=== PATIENT | female | born 1955 | race Caucasian/White ===

== ENCOUNTER → 2017-03-11 | Outpatient (CLI) | payer OTHER ==
[~2017-03-11] VITALS: Ht 147.3 cm; Wt 82.7 kg
[~2017-03-11] MED LIST: ACET-1311 PO; ETAN50IN2 SQ; HYDC25 PO; MULT-506 PO; SULI200T4 PO
[2017-03-11 14:51] VITALS: BP 144/79; PULSE 109; Ht 147.3 cm; Wt 82.7 kg
== END | disposition home or self-care (01) ==
LOC: C.NEUR 14:20
PROVIDERS: ATTEND Internal Medicine Pulmonary Disease
DX: R06.83 Snoring (principal); G47.19 Other hypersomnia; Z72.820 Sleep deprivation; E66.9 Obesity, unspecified; R05 Cough

== ENCOUNTER → 2017-03-25 | Outpatient (CLI) | payer OTHER ==
--- NOTE | 2017-03-26 05:59 | PAP/PSG TECHNICIAN REPORT ---
[facility] Vibration Technician Polysomnogram Report Study name: None Report date: 03/26/2017 Study date: 03/25/2017 Referring Physician: Too Lagos M.D. Name: EDITH JING Interpreting Physician: Too Lagos M.D. Date of : 1955 Vibration Technician: Debbie Cabrear RPS. Sex: Female Age: 61 StudyType: PSG Weight: 182 lbs Height: 61 years, Height 4' 11" Neck Circum: 17 inches BMI: 36.76 Medications: Alendronate Sodium 70 mg, Aspirin 81 mg, Calcium 600 +[id number], Crestror 40 mg, Enbrel 50 mg/ml, Fluticasone 50 MCG, Lisinopril 20 mg, Metformin 500 mg, Novolog 70/30, Prednisone 5 mg, Sulindac 200 mg, Triamterene-HCTZ 37.5-25 mg Patient History 61 yr. old female here tonight for a diagnostic sleep study in room 8. Patient complains of snoring, fatigue and fragmented sleep. ESS 09/04. Parameters Monitored NPSG: E1-M2, E2-M1, Fp1-M2, Fp2-M1, F3-M2, F4-M2, F4-M1, C3-M2, C4-M2, C4-M1, O1-M2, O2-M2, O2-M1, T3-M2, T4-M1, P3-M2, P4-M1, CHIN1, CHIN2, HR, EKG, Legs, PFLOW, SNOR, FLOW, CFLOW, Tidal Volume, THOR, ABDO, SpO2, PLTH, CPRESS, ETCO2 Wave, ETCO2, pH Sleep Architecture Sleep Stages Time at Lights Off 9:42:19 PM STAGES Time (min.) TST (%) Time at Lights On 5:28:19 AM Wake 227.5 -- Total Recording Time (TRT) 466.00 min. N1 37.5 16 Total Sleep Period (TSP) 437.0 min. N2 99.5 42 Total Sleep Time (TST) 238.0min. N3 56.5 24 Awake Time 228.0 min. REM 44.5 19 Wake after Sleep Onset 201.5 min. Sleep Efficiency (SE) 51 % Sleep Onset Latency (KENNETH) 26.5 min. Number of Stage 1 Shifts None Awakenings 29 Stage Changes 103 Number of REM periods 2 REM 44.5 19 REM Latency 255.5 min. NREM 193.5 81 Body Position Analysis Supine Right Left Side Prone Vertical Total Sleep Time (min.) 64.3 233.5 0.0 233.50 0.0 1.2 Total Sleep Time (%) 2% 98% 0% 98 0% N/A% Total Sleep Time REM (min.) 0.0 44.5 0.0 None 0.0 0.0 Total Sleep Time NREM (min.) 4.5 189.0 0.0 None 0.0 0.0 Intermittent Wake (min.) 59.8 166.5 0.0 None 0.0 1.2 Total Sleep Period (%) 15% None None None None None Arousals Myoclonus (PLM) * Events Count Index Events Count Index Spontaneous 3 1 Events Awake (PLMW) 558 147.2 Respiratory 14 4.5 Events Asleep w/ Arousal (PLMA) 29 7.3 PLM 27 7 Events Asleep w/o Arousal (PLMS) 113 28.5 Snoring 17 4 Total Asleep 142 35.8 Total 61 15 Total 700 90 Respiratory Analysis * CA OA MA CH H RERA Total Count 1 2 0 0 126 0 129 Index 0.3 0.5 0.0 0 31.8 0 32.5 Mean Duration 10.7 5.9 0.0 0.00 21.8 0.0 21.5 Longest Duration 10.7 11.8 0.0 0.00 0.0 0.0 56.1 Respiratory Event Summary Total Supine ~Supine Right Left Prone REM NREM Apneas Count 3 0 3 3 N/A N/A 1 2 Index 0.8 0 1 0.8 N/A N/A 1 1 Hypopneas (4% Desat) Count 126 9 117 117 N/A N/A 56 70 Index 31.8 120.0 30 30.1 N/A N/A 75.5 21.7 Apneas & All Hypopneas Count 129 9 120 120 N/A N/A 57 72 Index 32.5 120 31 31 N/A N/A 76.9 22.3 Respiratory Events (Row Boss+All Hyp+RERA) Count 129 9 120 120 N/A N/A 57 72 Index 32.5 120 31 30.8 N/A N/A 76.9 22.3 Respiratory Related Arousal Count 14 9 14 14 N/A N/A 0 18 Index 4.5 53 4 4 N/A N/A 0 6 Snoring Analysis Supine Right Left Prone REM NREM Total Snore duration 69.1 min Snores count 7 2,717 N/A N/A 471 2,253 2,724 Snore mean duration 1.5 Sec Snores index 93 698 N/A N/A 635.1 698.6 686.7 TST with snoring (%) 29.0% Desaturation Event Summary: Minimum %SpO2 Event Count Mean/Min/Max Duration(sec.) Desaturation Index % Time In Bed > 90 165 20.1 / 4.8 / 60.0 24.4 90.5 86 - 90 30 12.8 / 5.8 / 33.0 61.0 6.6 81 - 85 8 8.9 / 5.5 / 12.8 54.5 2.0 76 - 80 0 N/A 0.0 0.9 71 - 75 0 N/A 0.0 0.1 66 - 70 0 N/A 0.0 0.0 61 - 65 0 N/A 0.0 0.0 56 - 60 0 N/A 0.0 0.0 51 - 55 0 N/A 0.0 0.0 < 50 0 N/A 0.0 0.0 Total REM NREM Awake <50% 0.0 min. 0.0 min. 0.0 min. 0.0 min. 51 - 60% 0.0 min. 0.0 min. 0.0 min. 0.0 min. 61 - 70% 0.1 min. 0.1 min. 0.0 min. 0.0 min. 71 - 80% 4.4 min. 4.4 min. 0.0 min. 0.0 min. 81 - 90% 38.3 min. 20.4 min. 12.5 min. 5.5 min. 91 - 100% 405.7 min. 19.7 min. 180.3 min. 205.7 min. Average 93 89 93 94 Minimum SpO2 70 70 85 81 Desaturation Event Index 24.1 90.3 24.5 11.1 # Desat. Events below 89% 72 57 10 5 Time(%) with Saturation below 89% 5.2 4.0 0.8 0.4 Time(min.) with Saturation below 89% 23.4 18.2 3.4 1.8 Time (mins) REM (mins) NREM (mins) % of TST SpO2 Below 90% 105 63 N42 11.5 SpO2 Below 88% 19 0 0 7 Heart Rate Analysis Min (bpm) Max (bpm) Average (bpm) Awake 31 255 94 NREM 70 127 86 REM 64 95 79 Overall 64 127 84 Supplemental O2 Values Minimum O2 level: None Value Start Time End Time Vibration Technician Comments MS. Concepcion slept in the right and supine positions. No cardiac arrhythmia or PLMs noted. No bruxism noted. Snoring was noted and scored as a 4 on a scale of 0 through 5. (0=no snoring, 5=snoring loud enough to be heard through a closed door or down the [address] way) MS. Concepcion awoke to use the restroom two times during the night.MS. Concepcion stated, I was very warm last night. The final report will be interpreted and signed by a sleep physician. The completed physician report will then be placed in the patient medical record. Therapy (cm H2O) 0 TIB (min.) 465.5 TST (min.) 238.0 Sleep Onset (min.) 26.5 REM Onset From Sleep (min.) 255.5 Sleep Efficiency % 51 Wakefulness (%) 49 Wakefulness (min.) 228.0 NREM 1 (%) 16 NREM 1 (min.) 37.5 NREM 2 (%) 42 NREM 2 (min.) 99.5 NREM 3 (%) 24 NREM 3 (min.) 56.5 REM (%) 19 REM (min.) 44.5 # Arousals 61 Arousal Index 15 # Snore 2,724 Snore Index 686.7 AHI 32.5 AHI Supine 120 AHI Non-Supine 31 NREM AHI 22.3 REM AHI 76.9 RDI 32.5 # Obstructive Apnea 2 # Central Apnea 1 # Mixed Apnea 0 # Hypopneas 126 RERAs 0 Total Respiratory Events 134 Time Below SpO2 89% (min.) 21.6 Mean NREM SpO2 (%) 93 Mean REM SpO2 (%) 89 Mean Sleep SpO2 (%) 92 Min NREM SpO2 (%) 85 Min REM SpO2 (%) 70 Position Supine (min.) 64.3 Position Non-supine (min.) 233.5 LM Index Sleep 35.8 LM Index NREM 43.1 LM Index REM 4.0 Mean Heart Rate (bpm) 84 Min Heart Rate (bpm) 64
--- NOTE | 2017-03-28 09:43 | POLYSOMNOGRAPH REPORT ---
CLINICAL DATA: A 61-year-old female with a BMI of 37.[address] Luna and myself with snoring, fatigue and fragmented sleep. Her [place] sleepiness score was 6/24. SLEEP ARCHITECTURE: Total sleep period was 437 minutes. Total sleep time was 238 minutes divided between 193.5 minutes of non-REM sleep and 44.5 minutes of REM sleep. Sleep onset latency was 26.5 minutes. REM latency was delayed at 255.5 minutes. Sleep efficiency was significantly reduced at 51%. Wake after sleep onset was markedly elevated at 201.5 minutes. Sleep consisted of stage N1 16%, stage N2 42%, stage N3 24%, and REM 19%. AROUSAL DATA: 61 arousals were recorded for an index of 15 per hour. PLM DATA: Mildly elevated limb movements during sleep were noted. There were 142 limb movements during sleep noted for an index of 35.8 per hour with arousal index of 7.3 per hour. RESPIRATORY DATA: Severe sleep apnea was documented. The AHI was 32.5. There was 1 central and 2 obstructive apneic episodes. The longest apneic episode was 11.8 seconds. There were 126 hypopneic episodes with a mean duration of 21.8 seconds. OXIMETRY DATA: Nocturnal hypoxemia was seen. Oxygen zach was 78% during REM. The mean saturation was 92%. Time below 88% was 19 minutes. EKG: Heart rates ranged from 70-127 beats per minute. No arrhythmias were noted. SURFBOARD MAKER'S COMMENTS: The patient slept in the right and supine positions. Snoring was severe rated 4 on a scale of 1-5. IMPRESSION: Severe sleep apnea/hypopnea with an AHI of 32.5 with nocturnal hypoxemia. RECOMMENDATIONS: The patient should be considered for a repeat sleep study with CPAP. ELLAD
== END | disposition home or self-care (01) ==
LOC: C.NEUR 21:00
PROVIDERS: ATTEND Internal Medicine Pulmonary Disease
DX: G47.30 Sleep apnea, unspecified (principal); E66.9 Obesity, unspecified

== ENCOUNTER → 2017-04-12 | Outpatient (CLI) | payer OTHER ==
[~2017-04-12] VITALS: Ht 148.6 cm; Wt 85.4 kg
[2017-04-12 15:12] VITALS: BP 134/79; PULSE 99; Ht 148.6 cm; Wt 85.4 kg
== END | disposition home or self-care (01) ==
LOC: C.NEUR 14:21
PROVIDERS: ATTEND Physician Assistant Medical
DX: G47.34 Idiopathic sleep related nonobstructive alveolar hypoventilation (principal); E66.9 Obesity, unspecified; G47.19 Other hypersomnia; R06.83 Snoring; E78.5 Hyperlipidemia, unspecified; Z79.899 Other long term (current) drug therapy; I10 Essential (primary) hypertension; Z72.820 Sleep deprivation; M06.9 Rheumatoid arthritis, unspecified; E11.9 Type 2 diabetes mellitus without complications; Z90.89 Acquired absence of other organs; Z98.890 Other specified postprocedural states; Z90.5 Acquired absence of kidney; Z82.61 Family history of arthritis; Z83.3 Family history of diabetes mellitus; Z80.1 Family history of malignant neoplasm of trachea, bronchus and lung; Z80.6 Family history of leukemia; Z81.0 Family history of intellectual disabilities; Z80.42 Family history of malignant neoplasm of prostate

== ENCOUNTER → 2017-04-29 | Outpatient (CLI) | payer OTHER ==
--- NOTE | 2017-04-30 06:47 | PAP/PSG TECHNICIAN REPORT ---
[facility] Studio Operator Polysomnogram Report Study name: None Report date: 04/30/2017 Study date: 04/29/2017 Referring Physician: Too Lagos M.D. Name: EDITH JING Interpreting Physician: Too Lagos M.D. Date of : 1955 Studio Operator: Michael Barth RPSGT. Sex: Female Age: 61 StudyType: PSG PAP Weight: 188 lbs 16 INCHES Height: 61 years, Height 4' 11" Neck Circum: BMI: 37.97 Medications: ALENDRONATE SODIUM 70 MG, ASPIRIN 81 MG, CRESTOR 40 MG, ENBREL 50 MG, FLUTICASONE PROPIONATE 50 MCG, LISINOPRIL 20 MG, METFORMIN HCL ER 500 MG, NOVOLOG, PREDNISONE 5 MG, SULINDAC 200 MG, TRIAMTERENE-HCTZ 37.5-25 MG Patient History PATIENT HAD A SLEEP STUDY DONE IN MARCH AND WAS POSITIVE FOR TRISHA WITH AN AHI OF 32.5/HR. SHE IS HERE TODAY FOR A CPAP TITRATION. RM 7 Parameters Monitored NPSG: E1-M2, E2-M1, Fp1-M2, Fp2-M1, F3-M2, F4-M2, F4-M1, C3-M2, C4-M2, C4-M1, O1-M2, O2-M2, O2-M1, T3-M2, T4-M1, P3-M2, P4-M1, CHIN1, CHIN2, HR, EKG, Legs, PFLOW, SNOR, FLOW, CFLOW, Tidal Volume, THOR, ABDO, SpO2, PLTH, CPRESS, ETCO2 Wave, ETCO2, pH Sleep Architecture Sleep Stages Time at Lights Off 10:33:05 PM STAGES Time (min.) TST (%) Time at Lights On 6:01:05 AM Wake 219.5 -- Total Recording Time (TRT) 448.50 min. N1 11.5 5 Total Sleep Period (TSP) 444.0 min. N2 90.0 39 Total Sleep Time (TST) 228.5min. N3 52.5 23 Awake Time 219.5 min. REM 74.5 33 Wake after Sleep Onset 215.5 min. Sleep Efficiency (SE) 51 % Sleep Onset Latency (KENNETH) 4.0 min. Number of Stage 1 Shifts None Awakenings 28 Stage Changes 76 Number of REM periods 4 REM 74.5 33 REM Latency 193.0 min. NREM 154.0 67 Body Position Analysis Supine Right Left Side Prone Vertical Total Sleep Time (min.) 65.3 9.0 206.5 215.50 0.0 0.0 Total Sleep Time (%) 6% 4% 90% 94 0% N/A% Total Sleep Time REM (min.) 0.0 0.0 74.5 None 0.0 0.0 Total Sleep Time NREM (min.) 13.0 9.0 132.0 None 0.0 0.0 Intermittent Wake (min.) 52.3 61.5 105.7 None 0.0 0.0 Total Sleep Period (%) 14% None None None None None Arousals Myoclonus (PLM) * Events Count Index Events Count Index Spontaneous 18 5 Events Awake (PLMW) 461 126.0 Respiratory 2 0.8 Events Asleep w/ Arousal (PLMA) 7 1.8 PLM 6 2 Events Asleep w/o Arousal (PLMS) 64 16.8 Snoring 1 0 Total Asleep 71 18.6 Total 27 7 Total 532 71 Respiratory Analysis * CA OA MA CH H RERA Total Count 0 4 0 0 25 3 29 Index 0.0 1.1 0.0 0 6.6 1 8.4 Mean Duration 0.0 13.4 0.0 0.00 15.9 14.0 15.4 Longest Duration 0.0 16.9 0.0 0.00 0.0 16.1 23.6 Respiratory Event Summary Total Supine ~Supine Right Left Prone REM NREM Apneas Count 4 0 4 0 4 N/A 3 1 Index 1.1 0 1 0.0 1.2 N/A 2 0 Hypopneas (4% Desat) Count 25 6 19 0 19 N/A 18 7 Index 6.6 27.7 5 0.0 5.5 N/A 14.5 2.7 Apneas & All Hypopneas Count 29 6 23 0 23 N/A 21 8 Index 7.6 28 6 0 7 N/A 16.9 3.1 Respiratory Events (Superintendent Service+All Hyp+RERA) Count 29 9 23 0 23 N/A 21 8 Index 8.4 42 6 0.0 6.7 N/A 16.9 4.3 Respiratory Related Arousal Count 2 9 1 0 1 N/A 1 2 Index 0.8 9 0 0 0 N/A 1 1 Snoring Analysis Supine Right Left Prone REM NREM Total Snore duration 2.8 min Snores count 8 19 103 N/A 31 99 130 Snore mean duration 1.3 Sec Snores index 37 127 30 N/A 25.0 38.6 34.1 TST with snoring (%) 1.2% Desaturation Event Summary: Minimum %SpO2 Event Count Mean/Min/Max Duration(sec.) Desaturation Index % Time In Bed > 90 62 26.4 / 7.0 / 60.0 8.8 99.3 86 - 90 0 N/A 0.0 0.7 81 - 85 0 N/A 0.0 0.0 76 - 80 0 N/A 0.0 0.0 71 - 75 0 N/A 0.0 0.0 66 - 70 0 N/A 0.0 0.0 61 - 65 0 N/A 0.0 0.0 56 - 60 0 N/A 0.0 0.0 51 - 55 0 N/A 0.0 0.0 < 50 0 N/A 0.0 0.0 Total REM NREM Awake <50% 0.0 min. 0.0 min. 0.0 min. 0.0 min. 51 - 60% 0.0 min. 0.0 min. 0.0 min. 0.0 min. 61 - 70% 0.0 min. 0.0 min. 0.0 min. 0.0 min. 71 - 80% 0.0 min. 0.0 min. 0.0 min. 0.0 min. 81 - 90% 3.0 min. 2.3 min. 0.0 min. 0.8 min. 91 - 100% 423.3 min. 72.2 min. 154.0 min. 197.1 min. Average 95 95 95 95 Minimum SpO2 81 86 91 81 Desaturation Event Index 8.3 18.5 1.6 9.8 # Desat. Events below 89% 4 4 N/A N/A Time(%) with Saturation below 89% 0.2 0.1 0.0 0.0 Time(min.) with Saturation below 89% 0.7 0.6 0.0 0.1 Time (mins) REM (mins) NREM (mins) % of TST SpO2 Below 90% 9 9 NN/A 0.6 SpO2 Below 88% 1 0 0 0 Heart Rate Analysis Min (bpm) Max (bpm) Average (bpm) Awake 67 94 79 NREM 64 83 73 REM 59 84 69 Overall 59 84 71 Supplemental O2 Values Minimum O2 level: None Value Start Time End Time Studio Operator Comments Ms. Concepcion slept in the right, left and supine positions. No cardiac arrhythmia noted. Leg movements noted. No bruxism noted. CPAP was initiated at +4 CMH2O and up-titrated to an optimal level of +12 CMH2O, which nearly eliminated all respiratory events and snoring. A Resmed F10 full face size small mask was used during titration Ms. Concepcion awoke to use the restroom 3 times during the night. Ms. Concepcion stated I did not sleep as well as I do when I am in my own bed. The final report will be interpreted and signed by a sleep physician. The completed physician report will then be placed in the patient medical record. Therapy Event: Therapy (cm H20) 4 5 6 7 9 11 12 Total Time at Pressure (min.) 22.6 27.4 159.4 103.6 6.3 52.8 75.8 TST at Pressure (min.) 7.1 7.4 31.0 57.1 6.3 49.8 69.8 # Periods 1 1 1 1 1 1 1 Sleep Onset (min.) 4.0 0.0 0.5 0.0 0.0 0.0 0.0 REM Onset (min.) N/A N/A 147.0 0.0 0.0 0.0 0.0 Sleep Efficiency % 31 26 19 55 100 94 92 Wakefulness (%) 68.5 73.1 80.6 44.9 0.0 5.7 7.9 Wakefulness (min.) 15.5 20.0 128.5 46.5 0.0 3.0 6.0 NREM 1 (%) 19.9 9.1 1.6 1.0 0.0 0.9 0.7 NREM 1 (min.) 4.5 2.5 2.5 1.0 0.0 0.5 0.5 NREM 2 (%) 11.6 17.8 10.0 28.0 0.0 26.5 31.0 NREM 2 (min.) 2.6 4.9 16.0 29.0 0.0 14.0 23.5 NREM 3 (%) 0.0 0.0 0.0 19.8 0.0 56.8 2.6 NREM 3 (min.) 0.0 0.0 0.0 20.5 0.0 30.0 2.0 REM (%) 0.0 0.0 7.8 6.4 100.0 10.1 57.8 REM (min.) 0.0 0.0 12.5 6.6 6.3 5.3 43.8 # Arousals 7 2 7 4 0 2 5 Arousal Index 59.0 16.3 13.6 4.2 0.0 2.4 4.3 # Snore 3 5 33 68 5 9 7 Snore Index 25.3 40.6 64.0 71.5 47.8 10.8 6.0 AHI 33.7 16.3 9.7 6.3 38.3 4.8 3.4 AHI Supine 33.7 63.8 0.0 N/A N/A N/A N/A AHI Non-Supine N/A 0.0 11.1 6.3 38.3 4.8 3.4 NREM AHI 33.7 16.3 0.0 0.0 N/A 2.7 0.0 REM AHI N/A N/A 24.1 54.6 38.3 22.5 5.5 RDI 50.6 24.4 9.7 6.3 38.3 4.8 3.4 # Obstructive 0 0 0 3 0 1 0 # Central Ap 0 0 0 0 0 0 0 # Mixed 0 0 0 0 0 0 0 # Hypopneas 4 2 5 3 4 3 4 RERAS 2 1 0 0 0 0 0 Total Respiratory Events 6 3 5 6 4 4 4 Time Below SpO2 89.00% (min.) 0.0 0.0 0.3 0.3 0.0 0.0 0.0 Mean NREM SpO2 (%) 95 94 93 94 N/A 95 96 Mean REM SpO2 (%) N/A N/A 93 94 95 95 96 Mean Sleep SpO2 (%) 95 94 93 94 95 95 96 Min NREM SpO2 (%) 92 92 91 93 N/A 93 93 Min REM SpO2 (%) N/A N/A 86 87 90 91 91 Position Supine (min.) 7.1 1.9 4.0 0.0 0.0 0.0 0.0 Position Non-supine (min.) 0.0 5.5 27.0 57.1 6.3 49.8 69.8 LM Index Sleep 67.4 32.5 27.1 6.3 28.7 20.5 16.3 LM Index NREM 67.4 32.5 38.9 2.4 N/A 14.8 25.4 LM Index REM N/A N/A 9.6 36.4 28.7 67.5 10.9 Mean Heart Rate (bpm) 77 76 74 73 68 72 68 Min Heart Rate (bpm) 73 73 68 61 61 61 59
--- NOTE | 2017-05-03 10:42 | POLYSOMNOGRAPH REPORT ---
CLINICAL DATA: A 61-year-old female with a BMI of 37.97, referred by myself and Lupe Espinosa PA-C, for a CPAP titration study. She had a sleep study in March 2017 which showed severe TRISHA with an AHI of 32.5. SLEEP ARCHITECTURE: Total sleep period was 444 minutes. Total sleep time was 228.5 minutes divided 154 minutes of non-REM sleep and 74.5 minutes of REM sleep. Sleep onset latency was 4 minutes. REM latency was 193 minutes. Sleep efficiency was 51%. Wake after sleep onset was significantly elevated at 215.5 minutes. Sleep consisted of stage N1 5%, stage N2 39%, stage N3 23% and REM 33%. AROUSAL DATA: 27 arousals were recorded for an index of 7 per hour. PERIODIC LIMB MOVEMENT DATA: 71 limb movements during sleep were noted for an index of 18.6 per hour with arousal index of 1.8 per hour. RESPIRATORY DATA: The AHI was 7.6. There were 4 obstructive apneic episodes. The longest apneic episode was 16.9 seconds. There were 25 hypopneic episodes with the mean duration of 16 seconds. OXIMETRY DATA: Transient hypoxemia was seen. Oxygen zach was 86%. Mean saturation was 95%. Time below 88% was less than 1 minute. EKG: Heart rates ranged from 64-84 beats per minute. No arrhythmias were noted. UROGYNECOLOGY PHYSICIAN'S COMMENTS AND TREATMENT SUMMARY: The patient slept in the right, left and supine position. She used ResMed F10 full facemask, size small. She was titrated up to 12 cm of water pressure. At that pressure, she slept for 70 minutes with an AHI of 3.4. IMPRESSION: Severe sleep apnea, corrected with CPAP 12 cm of water pressure, ResMed F10 full facemask, size small. RECOMMENDATIONS: The patient should be started on the above-noted treatment regimen and seen back in followup within 90 days to document efficacy and compliance. CR
== END | disposition home or self-care (01) ==
LOC: C.NEUR 20:00
PROVIDERS: ATTEND Physician Assistant Medical
DX: G47.34 Idiopathic sleep related nonobstructive alveolar hypoventilation (principal); E66.9 Obesity, unspecified; G47.19 Other hypersomnia; R06.83 Snoring

== ENCOUNTER 2024-03-20 08:10 | Inpatient (IN) ==
--- NOTE | 2024-03-20 08:38 | Emergency Department Note ---
Impression & Plan Episode of unresponsiveness, Drowsy ED Provider Note Provider: Ralph Roldan MD CHIEF COMPLAINT: Unresponsive episode, nausea HISTORY OF PRESENT ILLNESS: Patient is a 68-year-old female past medical history of end-stage renal disease on dialysis, diabetes, allergic rhinitis, hypertension, and solitary kidney presenting here today from the vascular suite. Patient was here for a fistulogram electively this morning. Reports from nursing staff there indicate the patient was being shifted from the stretcher onto the procedure table. She received 3 g of Ancef a little bit before this. Was otherwise doing well. Immediately upon moving around to the procedure table the patient began to clench her jaw and stiffen and went unresponsive and had a growl that lasted for maybe a minute or 2. No other shaking reported. She did not fall. No vomiting reported. Patient does report that she remembers feeling a bit off and maybe a little bit dizzy upon getting the room and starting to shift. Then remembers waking up to them asking her questions. She denies any history of similar. Did not have breakfast this morning and did not eat well over the weekend. States that she did have some nausea and decreased intake over the weekend. Had normal dialysis session yesterday although reports that her weight was a little bit lower than normal again as she has not been eating well. Maybe a bit of a chronic cough but no high fevers or chills reported. No chest pain or significant shortness of breath reported. Patient currently states she feels feels drowsy a bit like she was drugged. No headache reported. Stomach upset and nausea reported. Feels crumbly and she feels thirsty. Does report some hip pain but did take her Tylenol this morning. PAST MEDICAL HISTORY: As noted above MEDICATIONS: Reviewed home medications SOCIAL HISTORY: PHYSICAL EXAM: GENERAL: alert and oriented in no acute distress on stretcher although maybe a little bit drowsy. Head: normocephalic and atraumatic EYES: No injection, discharge or icterus. PERRL, EOMI. NECK: Trachea midline. ENT: Mucous membranes pink and moist. LUNGS: Airway patent. No retractions. Breath sounds clear with good air entry bilaterally. HEART: Regular rate and rhythm. No chest wall tenderness ABDOMEN: Soft and non-tender, without guarding or rebound. SKIN: Acyanotic, warm, dry, without rashes EXTREMITIES: Without swelling, tenderness or deformity of the lower extremities with the left upper extremity fistula in place in the upper arm with thrill NEUROLOGICAL: No focal deficits. No aphasia. No facial droop or slurred speech. Normal strength and tone in the extremities. Sensation to gross touch normal. EK bpm normal sinus rhythm. No PVC or PAC. No acute ST segment elevation or depression with QTc 494. Normal axis. CONTINUOUS CARDIAC MONITORING: was ordered and showed a heart rate of 90s bpm in normal sinus rhythm Patient's laboratory studies and imaging reviewed. Differential includes Vasovagal event, dehydration, infection, hypoglycemia, electrolyte abnormalities, cardiac sources, intracerebral event, pulmonary embolism, seizure, toxicologic, neurologic, as well as other pathologies. IMPRESSION/MEDICAL DECISION MAKING: Patient from vascular procedure room. Not received any medications be on Ancef this morning had a syncopal versus seizure event on the table. Procedure not started. Patient reports feeling off and maybe a bit warm. Clenched according to staff members and had a growling sound but no generalized shaking reported. Patient denies any history of this. Still feels somewhat groggy. Does not seem to have significant focal deficits. No food today and some decreased intake over the weekend. Chronic cough reported. Not hypoxic here. EKG without significant arrhythmia. Basic blood work is sent. Given the question of seizure versus syncope although there is no trauma CT of the head is obtained. Reports of abdominal upset and this nausea given some Zofran as well as some IV fluid and a CT scan of the abdomen pelvis obtained without contrast given her renal dysfunction to look for any abnormalities here. She is not particularly tender however. Does report some hip pain but did take her Tylenol this morning. Will try to hold off on additional sedating medications or narcotics at this time given this episode this morning. CT head and CT abdomen pelvis per radiology report without significant findings other than maybe some mucous plugging in the lungs. Respiratory viral panel is negative. No findings concerning for significant effusion or pneumonia. No significant leukocytosis. No severe anemia. Electrolytes and kidney function consistent with dialysis. Does not seem significantly fluid overloaded. Procalcitonin not severely elevated. Troponin is normal. Patient still feels a bit drowsy. While resting does drop into the mid 80s. She does have a history of sleep apnea in the past. Again she does not seem septic. No significant focal deficits. Discussed with her and her family at bedside. At this time recommended that we observe for further for further workup. Urinalysis still pending and she does make urine. A little bit of a headache has come on but again she does not seem meningitic at this point. Discussed with the hospitalist team. Will send a repeat troponin and VBG for completeness -both are reassuring. DIAGNOSIS: Unresponsive episode, drowsiness DISPOSITION: Hospitalist will evaluate Patient was agreeable with this plan. Past Med/Surg History Problem List Hypokalemia Acute hypoxic respiratory failure ESRD on hemodialysis Drowsy (Acute) Episode of unresponsiveness (Acute) Central venous catheter in place Dialysis AV fistula malfunction Hemodialysis catheter malfunction ESRD (end stage renal disease) on dialysis CKD (chronic kidney disease) stage 3, GFR 30-59 ml/min HD Tue-Tue-Tue [facility] Acute UTI (Acute) Acute hyperkalemia (Acute) Rhabdomyolysis (Acute) YAMILE (acute kidney injury) (Acute) HLD (hyperlipidemia) Anemia Status post laparoscopic cholecystectomy Acute calculous cholecystitis Encounter for pre-operative examination Severe sepsis Cholecystitis Abdominal pain (Acute) Rheumatoid arthritis Medical History Hyperlipidemia History of anemia AV fistula left arm ESRD (end stage renal disease) on dialysis [facility] Sensorineural hearing loss (SNHL) of both ears History of COVID-19 (~2022) no symptoms, resolved Rheumatoid arthritis [facility] Diabetes mellitus, type 2 trulicity Sleep apnea CPAP--noncompliant Grade A3 albuminuria Hypertension Obesity Surgical History S/P right cataract extraction Status post creation of arteriovenous fistula 06/21/23 @ [facility]--LEFT arm History of surgery removal of central venous catheter 01/19/24 History of colonoscopy History of carpal tunnel surgery of right wrist Hx laparoscopic cholecystectomy (11/18/22) Laparoscopic Cholecystectomy, Lysis of Adhesions.(Not Applicable) - Wilmer Godinez, History of nephrectomy (~1971) rt S/P tonsillectomy and adenoidectomy S/P appendectomy Family History Other Cancer Diabetes Lung cancer Social History Smoking Status: Never smoker Second Hand Exposure: No; Do You Dip or Chew Tobacco: No; Hx Alcohol Use: No Hx Substance Use: No Preferred Language: Romansh Communication Ability: Effective Visual Impairment: No Limitations Backup Operator Required: No Beliefs That Will Affect Care: None marital status: Single Current Living Situation: Alone Feels Safe at Home: Yes Assistive Devices: CPAP, Glasses, Hearing Aid - Bilateral and Walker Allergies Allergies Allergy/AdvReac Type Severity Reaction Status Date / Time ranitidine Allergy Intermediate Rash Verified 03/20/24 06:53 lisinopril AdvReac Intermediate Cough Verified 03/20/24 06:53 Home Meds Home Medications Medication Instructions Recorded Confirmed etanercept 50 mg/mL (1 mL) 50 mg subcut WK 11/14/18 03/20/24 subcutaneous syringe (Enbrel) fluticasone propionate 50 2 sprays intranasal QAM 11/14/18 03/20/24 mcg/actuation nasal spray,suspension cholecalciferol (vitamin D3) 50 50 mcg PO DIRECTED 05/10/23 03/20/24 mcg (2,000 unit) capsule (Vitamin D3) cyanocobalamin (vitamin B-12) 1,000 mcg PO QAM 05/10/23 03/20/24 1,000 mcg tablet (Vitamin B-12) tramadol 50 mg tablet 50 mg PO BID PRN Severe Pain 06/17/23 03/20/24 (Scale Score 7-10) doxylamine-dextromethorphan 6.25 15 ml PO Q4H PRN Cough 09/23/23 03/20/24 mg-15 mg/15 mL oral solution levocetirizine 5 mg tablet 5 mg PO PM 09/23/23 03/20/24 (Allergy Relief (levocetirizine)) ondansetron HCl 4 mg tablet 4 mg PO Q8H PRN Nausea 09/23/23 03/20/24 gabapentin 100 mg capsule 100 mg PO TID 01/19/24 03/20/24 Nervive Pain Relieving 1 tab PO DIRECTED 03/20/24 03/20/24 Previous Rx's Medication Instructions Recorded acetaminophen 325 mg tablet 325 - 975 mg (1 - 3 x 325 mg) PO 11/24/22 (Tylenol) Q6H PRN Pain #60 tabs dulaglutide 3 mg/0.5 mL 3 mg (0.5 mL) subcut WK #2 mL 11/24/22 subcutaneous pen injector ([place]) metoprolol tartrate 25 mg tablet 25 mg PO BID #60 tabs 01/06/23 Results & Data (ED) Vital Signs Vital Signs - 24 hr 03/20/24 08:32 03/20/24 08:43 03/20/24 08:57 Temperature 36.5 C Temperature Source Oral Pulse Rate 91 H 93 H Pulse Rate [Apical] Pulse Rhythm [Apical] Respiratory Rate 20 Respiratory Effort / Characteristics Non-Labored Spontaneous Respiratory Depth Normal Respiratory Pattern Regular Blood Pressure 118/61 Blood Pressure [Right Arm] Blood Pressure Mean 80 Blood Pressure Mean [Right Arm] Pulse Oximetry 99 84 L Oxygen Delivery Method Nasal Cannula Nasal Cannula Oxygen Flow Rate 2 0 Sepsis Recent Fever Within 48 Hours No Sepsis New/Unexplained Change in Mental Status No Sepsis Action Taken by Nursing No Action Required Oxygen Flow Rate - Titration 2 Pulse Oximetry Post Tiitration 96 03/20/24 10:39 Temperature Temperature Source Pulse Rate Pulse Rate [Apical] 90 Pulse Rhythm [Apical] Regular Respiratory Rate 20 Respiratory Effort / Characteristics Non-Labored Spontaneous Respiratory Depth Normal Respiratory Pattern Regular Blood Pressure Blood Pressure [Right Arm] 136/68 Blood Pressure Mean Blood Pressure Mean [Right Arm] 90 Pulse Oximetry 100 Oxygen Delivery Method Nasal Cannula Oxygen Flow Rate Sepsis Recent Fever Within 48 Hours Sepsis New/Unexplained Change in Mental Status Sepsis Action Taken by Nursing Oxygen Flow Rate - Titration Pulse Oximetry Post Tiitration Laboratory Data 03/20/24 08:43 03/20/24 08:43 Lab Results 03/20/24 03/20/24 Range/Units 08:27 08:43 WBC 6.83 (4.8-10.8) K/ul RBC 3.51 L (4.20-5.40) M/uL Hgb 11.4 L (12.0-16.0) g/dl Hct 35.3 L (37.0-47.0) % MCV 100.6 H (80.0-100.0) fL MCH 32.5 (25.0-34.0) pg MCHC 32.3 (32.0-36.0) g/dL RDW Std Deviation 55.3 H (36.4-46.3) fL RDW Coeff of Jax 15.0 H (11.5-14.5) % Plt Count 253 (130-400) K/uL MPV 9.6 (9.4-12.4) fL Immature Gran % (Auto) 1.3 % Neut % (Auto) 51.8 % Lymph % (Auto) 38.7 % [place] % (Auto) 6.0 % Eos % (Auto) 1.9 % Baso % (Auto) 0.3 % Neut # (Auto) 3.54 (1.40-6.50) K/uL Lymph # (Auto) 2.64 (1.20-3.40) K/uL [place] # (Auto) 0.41 (0.11-0.59) K/uL Eos # (Auto) 0.13 (0.00-0.50) K/uL Baso # (Auto) 0.02 (0.00-0.20) K/uL Immature Gran # (Auto) 0.09 (0.01-0.20) K/uL PT 11.5 (9.0-12.0) Seconds INR 1.1 (0.9-1.1) Sodium 139 (136-145) mmol/L Potassium 3.3 L (3.5-5.1) mmol/L Chloride 94 L (98-107) mmol/L Carbon Dioxide 32 (21-32) mmol/L Anion Gap 13 H (3-11) BUN 19 (6-23) mg/dl Creatinine 2.62 H (0.6-1.2) mg/dl Est Cr Clr Drug Dosing Not Reportable eGFR 19.08 BUN/Creatinine Ratio 7.3 L (10-20) Glucose 171 H (70-99(Fasting)) mg/dl POC Glucose 172 H (70-99) mg/dl Calcium 8.5 L (8.6-10.3) mg/dl Magnesium 1.9 (1.7-2.4) mg/dl Total Bilirubin 0.4 (0.2-1.0) mg/dl AST 20 (13-39) U/L ALT 16 (7-52) U/L Alkaline Phosphatase 75 (34-104) U/L Troponin I High Sens 8.9 (0-14) pg/ml Total Protein 7.2 (6.0-8.3) gm/dl Albumin 3.9 (3.4-5.0) gm/dl Globulin 3.3 (2.5-4.0) gm/dl Albumin/Globulin Ratio 1.2 (0.9-2) Procalcitonin 0.34 (0-0.5) ng/ml TSH 1.373 (0.300-4.500) uIu/ml Adenovirus (PCR) Not Detected (NotDetected) B. pertussis DNA (PCR) Not Detected (NotDetected) B.parapertussis DNA PCR Not Detected (NotDetected) C. pneumoniae DNA (PCR) Not Detected (NotDetected) Coronavirus OC43 (PCR) Not Detected (NotDetected) Coronavirus HKU1 (PCR) Not Detected (NotDetected) Coronavirus 229E (PCR) Not Detected (NotDetected) SARS-CoV-2 (PCR) Not Detected (NotDetected) Coronavirus NL63 (PCR) Not Detected (NotDetected) Human Metapneumovir PCR Not Detected (NotDetected) Influenza Type A (PCR) Not Detected (NotDetected) Influenza Type B (PCR) Not Detected (NotDetected) M. pneumoniae (PCR) Not Detected (NotDetected) Parainfluenza 1 (PCR) Not Detected (NotDetected) Parainfluenza 2 (PCR) Not Detected (NotDetected) Parainfluenza 3 (PCR) Not Detected (NotDetected) Parainfluenza 4 (PCR) Not Detected (NotDetected) RSV (PCR) Not Detected (NotDetected) Entero/Rhino (PCR) Not Detected (NotDetected) Administered Medications Potassium Chloride (K José Manuel / Wtr) 10 meq in 100 mls @ 100 mls/hr IV Q1H LEV Stop: 03/20/24 15:14 Last Admin: 03/20/24 11:56 Dose: 100 mls/hr Documented By: DEYSI Discontinued Medications Sodium Chloride (Nss) 1,000 mls @ 999 mls/hr IV .Q1H1M ONE Stop: 03/20/24 09:39 Last Infusion: 03/20/24 10:07 Dose: Infused Documented By: Admin: 03/20/24 08:47 Dose: 999 mls/hr Documented By: DEYSI Ondansetron HCl (Ondansetron Inj 2 Mg/Ml 2 Ml Vial) 4 mg IV NOW STA Stop: 03/20/24 08:34 Last Admin: 03/20/24 08:47 Dose: 4 mg Documented By: DEYSI Imaging Data Radiologist's Impression: Abdomen/Pelvis CT 03/20/24 08:[address] WITHOUT CONTRAST CT DOSE: 1902.42 mGy.cm HISTORY: Acute nausea with chronic renal failure ?seziure, nausea, esrd TECHNIQUE: Multiaxial CT images of the abdomen and pelvis were performed without contrast. A dose lowering technique was utilized adhering to the principles of ALARA. COMPARISON STUDY: 07/15/2023 FINDINGS: Limited exam secondary to positioning and lack of IV contrast. Bibasilar bronchial wall thickening. Scattered subcentimeter solid nodules of the lung bases are redemonstrated measuring up to 4 mm. Bibasilar mucous plugging. Unenhanced spleen, pancreas, liver and adrenal glands are unremarkable. Cholecystectomy. A few punctate left renal calcifications are noted. No ureteral calculi or hydronephrosis. Absent right kidney. Atherosclerosis of the aorta without aneurysm. No lymphadenopathy. 2 cm cystic focus within the left ovary is unchanged. Colonic diverticulosis without acute diverticulitis. Subcentimeter fat filled right lateral abdominal wall hernia on image 108, likely at a laparoscopic site measures 8 mm. Unremarkable soft tissues. No acute fracture. Degenerative changes of the spine, pelvis and hips. IMPRESSION: 1. No acute intra-abdominal or intrapelvic abnormality. 2. Colonic diverticulosis without acute diverticulitis. 3. Punctate left renal calcifications. No ureteral calculi or hydronephrosis. 4. Absent right kidney. 5. Finding suggestive of bronchitis with bibasilar mucous plugging. 6. Subcentimeter solid nodules of the lung bases redemonstrated measuring up to 5 mm, stable from prior. ACT 112: Negative or not required by law. The above report was generated using voice recognition software. It may contain grammatical, syntax or spelling errors. Electronically signed by: Elliot Martinez M.D. 03/20/2024 9:[address] 03/20/24 08:33 CT head/brain wo con CLINICAL HISTORY: seizure vs syncope Technique: Contiguous axial CT images of the head were acquired from the base of the skull to the vertex without intravenous contrast administration. Images were viewed in brain, subdural and bone windows. Automated dose lowering techniques and/or adjustment according to patient size were utilized for this exam. Comparison: None available at the time of this dictation. Findings: The ventricles, basal cisterns, and cerebral sulci are normal. There is no acute intracranial hemorrhage or evidence of acute territorial infarction. Neither mass effect, shift of the midline structures, nor abnormal extra-axial fluid collections are shown. Imaged portions of the paranasal sinuses and mastoid air cells are clear. The orbits appear normal. There are no acute fractures of the calvaria or scalp swelling. Impression: No acute intracranial hemorrhage, no evidence of acute territorial infarction or other acute intracranial disease process. ACT 112: Negative or not required by law. Electronically signed by: Humberto Chen M.D. 03/20/2024 9:16 AM Chest X-Ray 03/20/24 09:48 XR chest 1V portable CLINICAL HISTORY: syncope TECHNIQUE: Single frontal radiograph of the chest was obtained. Comparison: Comparison is made to chest radiograph 12/26/2022 FINDINGS: No lines and tubes are seen. The cardiomediastinal silhouette is normal. The lungs are clear. No evidence of pleural effusion or pneumothorax. IMPRESSION: No acute chest disease. ACT 112: Negative or not required by law. Electronically signed by: Humberto Chen M.D. 03/20/2024 10:25 AM Discharge Plan Visit Data Chief Complaint: Illness Stated Complaint: ILLNESS ED Provider: Ralph Roldan Discharge Problem: Episode of unresponsiveness, Drowsy Patient Disposition: Being Evaluated by Hospitalist
[2024-03-20] MEDS: SODIUM CHLORIDE 0.9% 1,000 ML IV ONE (08:47)
[2024-03-20] MEDS: ONDANSETRON INJ 2 MG/ML 2 ML VIAL IV STA (08:47)
[2024-03-20 09:00] LABS: Basophils # (auto) 0.02 K/uL (0.00-0.20); Basophils % (auto) 0.3 %; Eosinophils # (auto) 0.13 K/uL (0.00-0.50); Eosinophils % (auto) 1.9 %; Hematocrit (blood only) 35.3 % (37.0-47.0); Hemoglobin 11.4 g/dl (12.0-16.0); Immature Granulocytes # (auto) 0.09 K/uL (0.01-0.20); Immature Granulocytes % (auto) 1.3 %; Lymphocytes # (auto) 2.64 K/uL (1.20-3.40); Lymphocytes % (auto) 38.7 %; Mean Corpuscular Hemoglobin 32.5 pg (25.0-34.0); Mean Corpuscular Hgb Conc 32.3 g/dL (32.0-36.0); Mean Corpuscular Volume 100.6 fL (80.0-100.0); Mean Platelet Volume 9.6 fL (9.4-12.4); Monocytes # (auto) 0.41 K/uL (0.11-0.59); Neutrophils # (auto) 3.54 K/uL (1.40-6.50); Neutrophils % (auto) 51.8 %; Platelet Count 253 K/uL (130-400); RDW Standard Deviation 55.3 fL (36.4-46.3); Red Blood Count 3.51 M/uL (4.20-5.40); White Blood Count 6.83 K/ul (4.8-10.8)
[2024-03-20 09:17] LABS: Alanine Aminotransferase 16 U/L (7-52); Albumin Globulin Ratio 1.2 (0.9-2); Albumin Level 3.9 gm/dl (3.4-5.0); Alkaline Phosphatase 75 U/L (34-104); Anion Gap 13 (3-11); Aspartate Aminotransferase 20 U/L (13-39); BUN Creatinine Ratio 7.3 (10-20); Bilirubin,Total 0.4 mg/dl (0.2-1.0); Blood Urea Nitrogen 19 mg/dl (6-23); Calcium 8.5 mg/dl (8.6-10.3); Carbon Dioxide 32 mmol/L (21-32); Chloride 94 mmol/L (98-107); Globulin 3.3 gm/dl (2.5-4.0); Glucose 171 mg/dl (70-99(Fasting)); Magnesium 1.9 mg/dl (1.7-2.4); Potassium 3.3 mmol/L (3.5-5.1); Sodium 139 mmol/L (136-145); Total Protein 7.2 gm/dl (6.0-8.3)
--- NOTE | 2024-03-20 09:17 | CT Scan Report ---
CT head/brain wo con CLINICAL HISTORY: seizure vs syncope Technique: Contiguous axial CT images of the head were acquired from the base of the skull to the [place] jeyson without intravenous contrast administration. Images were viewed in brain, subdural and [facility]. Automated dose lowering techniques and/or adjustment according to patient size were utilized for this exam. Comparison: None available at the time of this dictation. Findings: The ventricles, basal cisterns, and cerebral sulci are normal. There is no acute intracranial hemorrh age or evidence of acute territorial infarction. Neither mass effect, shift of the midline structures , nor abnormal extra-axial fluid collections are shown. Imaged portions of the paranasal sinuses and mastoid air cells are clear. The orbits appear normal. There are no acute fractures of the calvaria or scalp swelling. Impression: No acute intracranial hemorrhage, no evidence of acute territorial infarction or other acute intracra nial disease process. ACT 112: Negative or not required by law. Electronically signed by: Humberto Chen M.D. 03/20/2024 9:16 AM
[2024-03-20 09:23] LABS: Troponin I High Sensitivity 8.9 pg/ml (0-14)
[2024-03-20 09:28] LABS: INR 1.1 (0.9-1.1); Prothrombin Time 11.5 Seconds (9.0-12.0)
--- NOTE | 2024-03-20 09:28 | CT Scan Report ---
ABDOMEN AND PELVIS CT WITHOUT CONTRAST CT DOSE: 1902.42 mGy.cm HISTORY: Acute nausea with chronic renal failure ?seziure, nausea, esrd TECHNIQUE: Multiaxial CT images of the abdomen and pelvis were performed without contrast. A dose lo wering technique was utilized adhering to the principles of ALARA. COMPARISON STUDY: 07/15/2023 FINDINGS: Limited exam secondary to positioning and lack of IV contrast. Bibasilar bronchial wall thi ckening. Scattered subcentimeter solid nodules of the lung bases are redemonstrated measuring up to 4 mm. Bibasilar mucous plugging. Unenhanced spleen, pancreas, liver and adrenal glands are unremarkabl e. Cholecystectomy. A few punctate left renal calcifications are noted. No ureteral calculi or hydronephrosis. Absent rig ht kidney. Atherosclerosis of the aorta without aneurysm. No lymphadenopathy. 2 cm cystic focus withi n the left ovary is unchanged. Colonic diverticulosis without acute diverticulitis. Subcentimeter fat filled right lateral abdominal wall hernia on image 108, likely at a laparoscopic site measures 8 mm . Unremarkable soft tissues. No acute fracture. Degenerative changes of the spine, pelvis and hips. IMPRESSION: 1. No acute intra-abdominal or intrapelvic abnormality. 2. Colonic diverticulosis without acute diverticulitis. 3. Punctate left renal calcifications. No ureteral calculi or hydronephrosis. 4. Absent right kidney. 5. Finding suggestive of bronchitis with bibasilar mucous plugging. 6. Subcentimeter solid nodules of the lung bases redemonstrated measuring up to 5 mm, stable from liu or. ACT 112: Negative or not required by law. The above report was generated using voice recognition software. It may contain grammatical, syntax o r spelling errors. Electronically signed by: Elliot Martinez M.D. 03/20/2024 9:26 AM
[2024-03-20 09:32] LABS: Thyroid Stimulating Hormone 1.373 uIu/ml (0.300-4.500)
[2024-03-20 10:02] LABS: Adenovirus PCR Not Detected (NotDetected); Bordetella parapertussis PCR Not Detected (NotDetected); Bordetella pertussis PCR Not Detected (NotDetected); Chlamydia pneumoniae PCR Not Detected (NotDetected); Coronavirus 229E PCR Not Detected (NotDetected); Coronavirus CoV-2 (COVID19)PCR Not Detected (NotDetected); Coronavirus HKU1 PCR Not Detected (NotDetected); Coronavirus NL63 PCR Not Detected (NotDetected); Coronavirus OC43PCR Not Detected (NotDetected); Human Metapneumovirus PCR Not Detected (NotDetected); Influenza A PCR Not Detected (NotDetected); Influenza B PCR Not Detected (NotDetected); Mycoplasma pneumoniae PCR Not Detected (NotDetected); Parainfluenza Virus 1 PCR Not Detected (NotDetected); Parainfluenza Virus 2 PCR Not Detected (NotDetected); Parainfluenza Virus 3 PCR Not Detected (NotDetected); Parainfluenza Virus 4 PCR Not Detected (NotDetected); Respiratory Syncytial VirusPCR Not Detected (NotDetected); Rhinovirus/Enterovirus PCR Not Detected (NotDetected)
--- NOTE | 2024-03-20 10:26 | XRay Report ---
XR chest 1V portable CLINICAL HISTORY: syncope TECHNIQUE: Single frontal radiograph of the chest was obtained. Comparison: Comparison is made to chest radiograph 12/26/2022 FINDINGS: No lines and tubes are seen. The cardiomediastinal silhouette is normal. The lungs are clear. No evid ence of pleural effusion or pneumothorax. IMPRESSION: No acute chest disease. ACT 112: Negative or not required by law. Electronically signed by: Humberto Chen M.D. 03/20/2024 10:25 AM
--- NOTE | 2024-03-20 10:34 | History & Physical Report ---
Date of Service March 20, 2024 Assessment & Plan (1) Episode of unresponsiveness: (2) Acute hypoxic respiratory failure: (3) Hypokalemia: (4) ESRD on hemodialysis: Plan Melinda Montelongo is a 68-year-old female with past medical history significant for DM type II, diabetic peripheral angiopathy, HLD, HTN, allergic rhinitis, TRISHA on CPAP, ESRD on hemodialysis M/W/F, congenital absence of right kidney, osteoporosis, Rheumatoid arthritis and other problems listed below who presented to the ED for evaluation on 03/20/2024 secondary to an unresponsive episode. Patient was undergoing an elective left arm fistulogram with Dr. Luu upstairs this morning when she suddenly became unresponsive. The episode of unresponsiveness lasted approximately 1-2 minutes. Patient noted to be clenching her jaw and growling during this event however there was no overt shaking per nursing staff. She was actually in the process of being transferred from a stretcher to the procedure table when this occurred. She does remember feeling faint and dizzy prior to becoming unresponsive. Patient is still feeling quite drowsy following this event. No known prior history of seizures. Episode of Unresponsiveness: Initial laboratory evaluation rather unremarkable thus far. Head CT negative. UA pending. Check lactate. Neurology consult pending. Check resting echocardiogram. EEG to r/o possible seizure activity. Check orthostatics. Acute Hypoxic Respiratory Failure: Patient incidentally noted to be hypoxic in the ED at 84% SpO2 on RA. CXR unremarkable. No prior O2 use. She does endorse a lingering cough but denies any SOB. Currently on 2L via NC and saturating well. VBG pending. Resp BioFire negative. CTAP c/f bronchitis with bibasilar mucous plugging. Start Mucinex, pulmonary toilet. Wean O2 as tolerated. Hypokalemia: K+ 3.3 on presentation, ordered 4 bags of 10mEq IV KCl. Continue to monitor electrolytes and manage PRN. ESRD on Hemodialysis M/W/F: Patient follows with [facility] [Dr. Harris]. Undergoes HD M/W/F at [facility]. Cr currently stable, baseline Cr ~2-4 over the past 2 years per chart review. Nephrology consult pending. Patient still producing urine. Hold home tramadol; avoid nephrotoxic medications when able. Monitor renal function closely and renally dose medications when able. Other Chronic Medical Conditions: * RA/Immunosuppression - On weekly Enbrel injections. Continue gabapentin. * TRISHA - Continue CPAP HS. HTN - Relatively hypotensive. Hold home metoprolol tartrate, continue to monitor BP. S/p 1L NSS in the ED. * DM Type II - A1c 6.8% about 3 months ago per chart review. Hold homemaker companion, SSI while inpatient. BSG checks ACHS. Repeat Hgb A1c in AM. DVT Prophylaxis: SQ Lovenox Code Status: FULL CODE PCP: Shayla Milan MD Disposition: Admit to Med/Telemetry for further inpatient evaluation and management. Patient's brother, Justin, is her medical POA. He can be reached at the following phone #: . Patient seen in collaboration with Dr. Benavidez. Please see addendum. I spent a total of 65 minutes coordinating, documenting, and providing care for this patient excluding time spent in the performance of separately billed services. This included personally reviewing all current laboratories and imaging studies, medical reconciliation, outpatient chart review and discussion with specialists. This chart was completed in part utilizing Speech Voice Recognition Software. Grammatical errors, random word insertions, pronoun errors, and incomplete sentences are an occasional consequence of this system due to software limitations, ambient noise, and hardware issues. Any formal questions or concerns about the content, text, or information contained within the body of this dictation should be directly addressed to the provider for clarification. History of Present Illness Chief Complaint: Syncope/Unresponsive Episode Primary Care Provider: Shayla Milan MD Melinda Montelongo is a 68-year-old female with past medical history significant for DM type II, diabetic peripheral angiopathy, HLD, HTN, allergic rhinitis, TRISHA on CPAP, ESRD on hemodialysis M/W/F, congenital absence of right kidney, osteoporosis, Rheumatoid arthritis and other problems listed below who presented to the ED for evaluation on 03/20/2024 secondary to an unresponsive episode. History obtained from the patient and associated chart review. Patient seen at bedside with Dr. Benavidez in the ED. Patient was undergoing an elective left arm fistulogram with Dr. Luu upstairs this morning when she suddenly became unresponsive. The episode of unresponsiveness lasted approximately 1-2 minutes. Patient noted to be clenching her jaw during this event however there was no overt shaking per Dr. Luu's nursing staff. She did not fall during this episode. She was actually in the process of being transferred from a stretcher to the procedure table when this occurred. Of note, she received 3g IV Ancef prior be taken into the procedure room. She does remember feeling faint and dizzy prior to becoming unresponsive. She was noted to be coughing quite a bit prior to the episode. Patient endorsing some drowsiness following the unresponsive event. Patient was dealing with some nausea, vomiting and poor oral intake over the weekend but otherwise offers no other complaints. She was incidentally noted to be 84% SpO2 on room air in the ED however she denies any SOB or chest pain. She is currently saturating well on 2L via NC. She is not on oxygen chronically however she does use a CPAP HS given history of TRISHA. Patient endorses taking all of her home medications this morning. She denies any history of seizures. Also no known history of seizures in any of her close relatives. She still is endorsing some intermittent nausea however denies any episodes of vomiting in the ED or upstairs when this episode occurred. No smoking history. Infrequent alcohol use; reports having an alcoholic beverage here and there. She is requesting to eat as her appetite has returned. No known prior issues with swallowing. No history of CVA or TIA per patient's recollection. Allergies Allergy/AdvReac Type Severity Reaction Status Date / Time ranitidine Allergy Intermediate Rash Verified 03/20/24 06:53 lisinopril AdvReac Intermediate Cough Verified 03/20/24 06:53 Home Medications Medication Instructions Recorded Confirmed Type etanercept 50 mg/mL (1 mL) 50 mg subcut WK 11/14/18 03/20/24 History subcutaneous syringe (Enbrel) fluticasone propionate 50 2 sprays intranasal QAM 11/14/18 03/20/24 History mcg/actuation nasal spray,suspension acetaminophen 325 mg tablet 325 - 975 mg (1 - 3 x 325 mg) PO 11/24/22 03/20/24 Rx (Tylenol) Q6H PRN Pain #60 tabs dulaglutide 3 mg/0.5 mL 3 mg (0.5 mL) subcut WK #2 mL 11/24/22 03/20/24 Rx subcutaneous pen injector (Trulicity) metoprolol tartrate 25 mg tablet 25 mg PO BID #60 tabs 01/06/23 03/20/24 Rx cholecalciferol (vitamin D3) 50 50 mcg PO DIRECTED 05/10/23 03/20/24 History mcg (2,000 unit) capsule (Vitamin D3) cyanocobalamin (vitamin B-12) 1,000 mcg PO QAM 05/10/23 03/20/24 History 1,000 mcg tablet (Vitamin B-12) tramadol 50 mg tablet 50 mg PO BID PRN Severe Pain 06/17/23 03/20/24 History (Scale Score 7-10) doxylamine-dextromethorphan 6.25 15 ml PO Q4H PRN Cough 09/23/23 03/20/24 History mg-15 mg/15 mL oral solution levocetirizine 5 mg tablet 5 mg PO PM 09/23/23 03/20/24 History (Allergy Relief (levocetirizine)) ondansetron HCl 4 mg tablet 4 mg PO Q8H PRN Nausea 09/23/23 03/20/24 History gabapentin 100 mg capsule 100 mg PO TID 01/19/24 03/20/24 History Nervive Pain Relieving 1 tab PO DIRECTED 03/20/24 03/20/24 History Past Med/Surg History Problem List Hypokalemia Acute hypoxic respiratory failure ESRD on hemodialysis Drowsy (Acute) Episode of unresponsiveness (Acute) Central venous catheter in place Dialysis AV fistula malfunction Hemodialysis catheter malfunction ESRD (end stage renal disease) on dialysis CKD (chronic kidney disease) stage 3, GFR 30-59 ml/min HD Tue-Tue-Tue [facility] Acute UTI (Acute) Acute hyperkalemia (Acute) Rhabdomyolysis (Acute) YAMILE (acute kidney injury) (Acute) HLD (hyperlipidemia) Anemia Status post laparoscopic cholecystectomy Acute calculous cholecystitis Encounter for pre-operative examination Severe sepsis Cholecystitis Abdominal pain (Acute) Rheumatoid arthritis Medical History Hyperlipidemia History of anemia AV fistula left arm ESRD (end stage renal disease) on dialysis dialysis [facility]--tue/ Sensorineural hearing loss (SNHL) of both ears History of COVID-19 (~2022) no symptoms, resolved Rheumatoid arthritis [facility] Diabetes mellitus, type 2 trulicity Sleep apnea CPAP--noncompliant Grade A3 albuminuria Hypertension Obesity Surgical History S/P right cataract extraction Status post creation of arteriovenous fistula 06/21/23 @ [facility]--LEFT arm History of surgery removal of central venous catheter 01/19/24 History of colonoscopy History of carpal tunnel surgery of right wrist Hx laparoscopic cholecystectomy (11/18/22) Laparoscopic Cholecystectomy, Lysis of Adhesions.(Not Applicable) - Wilmer Godinez, History of nephrectomy (~1971) rt S/P tonsillectomy and adenoidectomy S/P appendectomy Family History Other Cancer Diabetes Lung cancer Social History Smoking Status: Never smoker Second Hand Exposure: No; Do You Dip or Chew Tobacco: No; Hx Alcohol Use: No Hx Substance Use: No Preferred Language: Turkish Communication Ability: Effective Visual Impairment: No Limitations 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 Physical Exam Physical Exam: Please refer to Dr. Benavidez's addendum for physical examination findings. Results & Data Results & Data Vital Signs (Past 12 Hours) Vital Signs Temp Pulse Resp BP Pulse Ox O2 Del Method O2 Flow Rate 03/20/24 08:57 84 L Nasal Cannula 0 03/20/24 08:43 93 H 03/20/24 08:32 36.5 C 91 H 20 118/61 99 Nasal Cannula 2 Laboratory Results Short CBC 03/20/24 Range/Units 08:43 WBC 6.83 (4.8-10.8) K/ul Hgb 11.4 L (12.0-16.0) g/dl Hct 35.3 L (37.0-47.0) % Plt Count 253 (130-400) K/uL BMP 03/20/24 08:43 Sodium 139 Potassium 3.3 L Chloride 94 L Carbon Dioxide 32 BUN 19 Creatinine 2.62 H Glucose 171 H Calcium 8.5 L Liver Function 03/20/24 Range/Units 08:43 Total Bilirubin 0.4 (0.2-1.0) mg/dl AST 20 (13-39) U/L ALT 16 (7-52) U/L Alkaline Phosphatase 75 (34-104) U/L Albumin 3.9 (3.4-5.0) gm/dl Diagnostic Findings Abdomen/Pelvis CT 03/20/24 08:[address] WITHOUT CONTRAST CT DOSE: 1902.42 mGy.cm HISTORY: Acute nausea with chronic renal failure ?seziure, nausea, esrd TECHNIQUE: Multiaxial CT images of the abdomen and pelvis were performed without contrast. A dose lowering technique was utilized adhering to the principles of ALARA. COMPARISON STUDY: 07/15/2023 FINDINGS: Limited exam secondary to positioning and lack of IV contrast. Bibasilar bronchial wall thickening. Scattered subcentimeter solid nodules of the lung bases are redemonstrated measuring up to 4 mm. Bibasilar mucous plugging. Unenhanced spleen, pancreas, liver and adrenal glands are unremarkable. Cholecystectomy. A few punctate left renal calcifications are noted. No ureteral calculi or hydronephrosis. Absent right kidney. Atherosclerosis of the aorta without aneurysm. No lymphadenopathy. 2 cm cystic focus within the left ovary is unchanged. Colonic diverticulosis without acute diverticulitis. Subcentimeter fat filled right lateral abdominal wall hernia on image 108, likely at a laparoscopic site measures 8 mm. Unremarkable soft tissues. No acute fracture. Degenerative changes of the spine, pelvis and hips. IMPRESSION: 1. No acute intra-abdominal or intrapelvic abnormality. 2. Colonic diverticulosis without acute diverticulitis. 3. Punctate left renal calcifications. No ureteral calculi or hydronephrosis. 4. Absent right kidney. 5. Finding suggestive of bronchitis with bibasilar mucous plugging. 6. Subcentimeter solid nodules of the lung bases redemonstrated measuring up to 5 mm, stable from prior. ACT 112: Negative or not required by law. The above report was generated using voice recognition software. It may contain grammatical, syntax or spelling errors. Electronically signed by: Elliot Martinez M.D. 03/20/2024 9:[address] 03/20/24 08:33 CT head/brain wo con CLINICAL HISTORY: seizure vs syncope Technique: Contiguous axial CT images of the head were acquired from the base of the skull to the vertex without intravenous contrast administration. Images were viewed in brain, subdural and bone windows. Automated dose lowering techniques and/or adjustment according to patient size were utilized for this exam. Comparison: None available at the time of this dictation. Findings: The ventricles, basal cisterns, and cerebral sulci are normal. There is no acute intracranial hemorrhage or evidence of acute territorial infarction. Neither mass effect, shift of the midline structures, nor abnormal extra-axial fluid collections are shown. Imaged portions of the paranasal sinuses and mastoid air cells are clear. The orbits appear normal. There are no acute fractures of the calvaria or scalp swelling. Impression: No acute intracranial hemorrhage, no evidence of acute territorial infarction or other acute intracranial disease process. ACT 112: Negative or not required by law. Electronically signed by: Humberto Chen M.D. 03/20/2024 9:16 AM Chest X-Ray 03/20/24 09:48 XR chest 1V portable CLINICAL HISTORY: syncope TECHNIQUE: Single frontal radiograph of the chest was obtained. Comparison: Comparison is made to chest radiograph 12/26/2022 FINDINGS: No lines and tubes are seen. The cardiomediastinal silhouette is normal. The lungs are clear. No evidence of pleural effusion or pneumothorax. IMPRESSION: No acute chest disease. ACT 112: Negative or not required by law. Electronically signed by: Humberto Chen M.D. 03/20/2024 10:25 AM Medications Administered Discontinued Medications Sodium Chloride (Nss) 1,000 mls @ 999 mls/hr IV .Q1H1M ONE Stop: 03/20/24 09:39 Last Infusion: 03/20/24 10:07 Dose: Infused Documented By: Admin: 03/20/24 08:47 Dose: 999 mls/hr Documented By: DEYSI Ondansetron HCl (Ondansetron Inj 2 Mg/Ml 2 Ml Vial) 4 mg IV NOW STA Stop: 03/20/24 08:34 Last Admin: 03/20/24 08:47 Dose: 4 mg Documented By: DEYSI Code Status & VTE Plan Code Status FULL CODE Supervising Physician Co-Signing Physician Notes I have seen and discussed the case with the collaborating advanced practitioner. I agree with the above H&P. I have reviewed and confirmed the patients medical history, the findings on physical examination, and the patients diagnosis and treatment plan with Harrison LAO and agree with the information documented. Briefly, 68 yo female with unresponsive episode w/ moaning during fistulogram, during movement. On my exam, patient had no focal neurologic finding to suggest a CVA. Given patient has been dehydrated, below dry weight, has had episodes of "fuzziness" before, and this occurred during aggressive shifting of body, top of differential is vasovagal etiologies. Given possible post ictal state, EEG is warranted. Echo ordered to r/o structural abnormalities. Telemetry monitoring for arrhythmias. Lab workup targeted towards syncope. Rest of plan per excellent CJ documentation. I spent a total of 20 minutes coordinating, documenting, and providing care for this patient excluding time spent in the performance of separately billed services. All of the aforementioned completed outside of collaborating with the assigned advanced practitioner for a full treatment plan. I have reviewed the advanced practitioner's documentation, and I agree with, and take responsibility for the plan of care
--- NOTE | 2024-03-20 11:42 | Electrocardiogram Report ---
Test Reason : Blood Pressure : */* mmHG Vent. Rate : 92 BPM Atrial Rate : 92 BPM P-R Int : 150 ms QRS Dur : 76 ms QT Int : 400 ms P-R-T Axes : 42 -10 41 degrees QTcB Int : 494 ms Normal sinus rhythm Low voltage QRS Possible Old Inferior infarct Cannot rule out Old Anterior infarct Abnormal ECG When compared with ECG of 28-Dec-2022 11:18, Criteria for Anterior infarct now present Criteria for Inferior infarct now present Confirmed by Nickolas Powell ([id number]) on 03/20/2024 11:42:15 AM Referred By: Confirmed By: Nickolas Powell
[2024-03-20 11:44] LABS: Base Excess VBG 6.9 mEq/L; HCO3 VBG 33 mmol/L; Oxygen Saturation VBG 88.8 %; PCO2 VBG 52 mmHg (38-50); PO2 VBG 58 mmHg; pH VBG 7.41 (7.36-7.41)
[2024-03-20] MEDS: POTASSIUM CHLORIDE / WTR 10 MEQ/100 ML PLCT IV SCH (11:56)
[2024-03-20 12:23] LABS: Chol HDL Ratio 6.3 (0-5)
[2024-03-20 12:29] LABS: Troponin I High Sensitivity 7.7 pg/ml (0-14)
[2024-03-20 12:38] LABS: Estimated Average Glucose 157 mg/dl; Hemoglobin A1C 7.1 % (4.5-5.6)
[2024-03-20 18:10] LABS: Appearance Urine Clear (Clear); Bacteria Urine Automated None Seen (None Seen); Bilirubin Urine Negative (Negative); Blood Urine Negative (Negative); Cast Urine Automated 0-2 /lpf (0-2); Color Urine Yellow; Epithelial Cell Urine Auto 0-2 /hpf (0-2); Glucose Urine UA Negative (Negative); Ketones Urine Negative (Negative); Leukocyte Esterase Urine Negative (Negative); Nitrite Urine Negative (Negative); Protein Urine 2+ (Negative); RBC Urine Automated 0-2 /hpf (0-2); Specific Gravity Urine 1.011 (1.000-1.030); Urobilinogen Urine Negative (Negative); WBC Urine Automated 0-5 /hpf (0-5); pH Urine 8.5 (4.5-7.5)
[2024-03-20] MEDS ORDERED: POLYETHYLENE (MIRALAX) 17 GM PACK PO PRN (19:54)
[2024-03-20] MEDS ORDERED: ALBUT/IPRATROP 3MG/0.5MG NEB 3 ML VIAL NEB PRN (19:54)
[2024-03-20] MEDS: ACETAMINOPHEN 325 MG TAB PO PRN (21:15)
[2024-03-20] MEDS: ENOXAPARIN INJ 40 MG/0.4 ML SYR SQ SCH (21:36)
[2024-03-20] MEDS: guaiFENesin 600 MG TABCR PO SCH (21:36)
[2024-03-20] MEDS: GABAPENTIN 100 MG CAP PO PRN (22:13)
[2024-03-21 06:20] LABS: Hematocrit (blood only) 32.8 % (37.0-47.0); Hemoglobin 10.4 g/dl (12.0-16.0); Mean Corpuscular Hemoglobin 32.7 pg (25.0-34.0); Mean Corpuscular Hgb Conc 31.7 g/dL (32.0-36.0); Mean Corpuscular Volume 103.1 fL (80.0-100.0); Mean Platelet Volume 9.6 fL (9.4-12.4); Platelet Count 219 K/uL (130-400); RDW Coefficient of Variation 14.9 % (11.5-14.5); RDW Standard Deviation 57.3 fL (36.4-46.3); Red Blood Count 3.18 M/uL (4.20-5.40); White Blood Count 7.71 K/ul (4.8-10.8)
[2024-03-21 06:33] LABS: BUN Creatinine Ratio 9.7 (10-20); Calcium 8.7 mg/dl (8.6-10.3); Creatinine Clr Calc Pharmacy 14.7 ml/min; Magnesium 1.7 mg/dl (1.7-2.4); Phosphorus 4.8 mg/dl (2.5-4.9); Potassium 3.8 mmol/L (3.5-5.1)
[2024-03-21] MEDS: CHOLECALCIFEROL 25 MCG (1000 UNITS) TAB PO SCH (09:03)
[2024-03-21] MEDS: FLUTICASONE PROPIONATE NA SPR 16 GM BTL SCH (09:03)
[2024-03-21] MEDS: CYANOCOBALAMIN (B-12) 500 MCG TABLET PO SCH (09:05)
--- NOTE | 2024-03-21 10:33 | Nephrology Consultation ---
Date of Consultation March 21, 2024 Assessment & Plan (1) ESRD on hemodialysis: Today is her dialysis day and will do her inpt. she is still has lot of residual kidney function leftl--will do 3hrs qb 300 and qd 600 and take 1/2 kilo off. if we have problem with AVF we wont be challenging her too much. no evidence of fluid overload. Electrolytes and renal panel from today was reviewed. we did not have any problem today with a fistula and was able to get a blood flow of even 400 (2) Episode of unresponsiveness: Unclear etiology. (3) Dialysis AV fistula malfunction: As per Dr Luu. she did not have the procedure as planned yesterday because of unresponsiveness History of Present Illness Reason for Consultation: ESRD on dialysis Attending Physician: Halina Ramos MD History of Present Illness 68/F with DM type II, ESRD on Dialysis through AVF --[facility], diabetic peripheral angiopathy, HLD, HTN, TRISHA on CPAP, congenital absence of right kidney, osteoporosis, Rheumatoid arthritis and other problems listed below who presented to the ED for evaluation on 03/20/2024 secondary to an unresponsive episode. Patient was undergoing an elective left arm fistulogram with Dr. Luu yesterday when she suddenly became unresponsive. The episode of unresponsiveness lasted approximately 1-2 minutes. Did not get the procedure though. last dialysis was Tuesday. She is currently saturating well on 2L via NC. She is not on oxygen chronically however she does use a CPAP HS given history of TRISHA. Patient is taking all of her home medications this morning. She denies any history of seizures. Also no known history of seizures in any of her close relatives. she is back to her baseline now. ROS--12 Systems reviewed and negative now. Physical Exam Constitutional: Awake and alert Nod sitress Respiratory: normal respiratory effort, lungs clear to auscultation Cardiovascular: RRR, no murmur, no edema Extremities: + AV fistula Gastrointestinal (Abdomen): soft, nontender, Psychiatric: A+Ox3, euthymic affect Allergies Allergy/AdvReac Type Severity Reaction Status Date / Time ranitidine Allergy Intermediate Rash Verified 03/20/24 06:53 lisinopril AdvReac Intermediate Cough Verified 03/20/24 06:53 Home Medications Medication Instructions Recorded Confirmed Type etanercept 50 mg/mL (1 mL) 50 mg subcut WK 11/14/18 03/20/24 History subcutaneous syringe (Enbrel) fluticasone propionate 50 2 sprays intranasal QAM 11/14/18 03/20/24 History mcg/actuation nasal spray,suspension acetaminophen 325 mg tablet 325 - 975 mg (1 - 3 x 325 mg) PO 11/24/22 03/20/24 Rx (Tylenol) Q6H PRN Pain #60 tabs dulaglutide 3 mg/0.5 mL 3 mg (0.5 mL) subcut WK #2 mL 11/24/22 03/20/24 Rx subcutaneous pen injector (Trulicity) metoprolol tartrate 25 mg tablet 25 mg PO BID #60 tabs 01/06/23 03/20/24 Rx cholecalciferol (vitamin D3) 50 50 mcg PO DIRECTED 05/10/23 03/20/24 History mcg (2,000 unit) capsule (Vitamin D3) cyanocobalamin (vitamin B-12) 1,000 mcg PO QAM 05/10/23 03/20/24 History 1,000 mcg tablet (Vitamin B-12) tramadol 50 mg tablet 50 mg PO BID PRN Severe Pain 06/17/23 03/20/24 History (Scale Score 7-10) doxylamine-dextromethorphan 6.25 15 ml PO Q4H PRN Cough 09/23/23 03/20/24 History mg-15 mg/15 mL oral solution levocetirizine 5 mg tablet 5 mg PO PM 09/23/23 03/20/24 History (Allergy Relief (levocetirizine)) ondansetron HCl 4 mg tablet 4 mg PO Q8H PRN Nausea 09/23/23 03/20/24 History gabapentin 100 mg capsule 100 mg PO TID 01/19/24 03/20/24 History Nervive Pain Relieving 1 tab PO DIRECTED 03/20/24 03/20/24 History Patient History Medical History Hyperlipidemia History of anemia AV fistula left arm ESRD (end stage renal disease) on dialysis dialysis [facility] [place]--mon/wed/fri Sensorineural hearing loss (SNHL) of both ears History of COVID-19 (~2022) no symptoms, resolved Rheumatoid arthritis [facility] Diabetes mellitus, type 2 trulicity Sleep apnea CPAP--noncompliant Grade A3 albuminuria Hypertension Obesity Surgical History S/P right cataract extraction Status post creation of arteriovenous fistula 06/21/23 @ [facility]--LEFT arm History of surgery removal of central venous catheter 01/19/24 History of colonoscopy History of carpal tunnel surgery of right wrist Hx laparoscopic cholecystectomy (11/18/22) Laparoscopic Cholecystectomy, Lysis of Adhesions.(Not Applicable) - Wilmer Godinez, History of nephrectomy (~1971) rt S/P tonsillectomy and adenoidectomy S/P appendectomy Family History Other Cancer Diabetes Lung cancer Social History Smoking Status: Never smoker Second Hand Exposure: No (mom when younger); Do You Dip or Chew Tobacco: No; Tobacco Cessation Education Requested by Patient: No Hx Alcohol Use: Yes Alcohol type: wine Hx Substance Use: No Preferred Language: Luxembourger Communication Ability: Effective Visual Impairment: No Limitations 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: No Beliefs That Will Affect Care: None marital status: Single Current Living Situation: Alone Other Information That Helps Us Care for You: No Feels Safe at Home: Yes Safety Concerns: Feels Safe At This Time Assistive Devices: Cane Results & Data Vital Signs (Past 12 Hours) Vital Signs Temp Pulse Pulse Resp BP Pulse Ox O2 Del Method 03/21/24 09:37 Nasal Cannula 03/21/24 07:23 81 03/21/24 07:20 36.7 C 84 18 117/73 100 Nasal Cannula 03/21/24 04:04 37.1 C 80 20 102/63 98 Nasal Cannula 03/21/24 00:27 36.9 C 87 20 109/68 98 Nasal Cannula O2 Flow Rate 03/21/24 09:37 2 03/21/24 07:23 03/21/24 07:20 2 03/21/24 04:04 2 03/21/24 00:27 2 Laboratory Results CBC and renal panel Diagnostic Findings chest x-ray
--- NOTE | 2024-03-21 12:32 | Hospitalist Progress Note ---
Date of Service March 21, 2024 Assessment & Plan (1) Episode of unresponsiveness: (2) Acute hypoxic respiratory failure: (3) Hypokalemia: (4) ESRD on hemodialysis: Plan 68-year-old female w/ PMH of DM type II, diabetic peripheral angiopathy, HLD, HTN, allergic rhinitis, TRISHA on CPAP, ESRD on hemodialysis M/W/F, congenital absence of right kidney, osteoporosis, Rheumatoid arthritis presented to the ED for evaluation on 03/20/2024 secondary to an unresponsive episode. Patient was undergoing an elective left arm fistulogram with Dr. Luu in the morning of 03/20/24 when she suddenly became unresponsive. The episode of unresponsiveness lasted approximately 1-2 minutes. Patient noted to be clenching her jaw and growling during this event however there was no overt shaking per nursing staff. She was actually in the process of being transferred from a stretcher to the procedure table when this occurred. She does remember feeling faint and dizzy prior to becoming unresponsive. Patient was still feeling quite drowsy following this event at the time of evaluation by admitting team on 03/20/24. No known prior history of seizures. She is being managed for the following: Episode of Unresponsiveness: See above. Laboratory evaluation rather unremarkable thus far. Admitting Head CT negative. UA neg for UTI. Nl lactate. Admitting Trope x 2 negative, EKG without acute ST or T changes. Echo with EF of 50 to 55%, left ventricular systolic function normal. Follow orthostatic vitals. EEG pending, neurology consult pending. Acute Hypoxic Respiratory Failure: Patient incidentally noted to be hypoxic in the ED at 84% SpO2 on RA. CXR unremarkable. No prior O2 use. She does endorse a lingering cough but denies any SOB. Needed 2L via NC at presentation and saturating well. admitting VBG WNL. Resp BioFire negative. CTAP c/f bronchitis with bibasilar mucous plugging. Continue with Mucinex, pulmonary toilet. Wean O2 as tolerated. currently maintaining saturation on room air. Hypokalemia: K+ 3.3 on presentation, Potassium repleted. Potassium is stable today. Monitor and replete. ESRD on Hemodialysis M/W/F: Patient follows with [facility] [Dr. Harris]. Undergoes HD M/W/F at [facility]. Nephrology to assist with dialysis. Patient makes urine. Other Chronic Medical Conditions: * RA/Immunosuppression - On weekly Enbrel injections. Continue gabapentin. * TRISHA - Continue CPAP HS. * HTN - c/w home meds as able * DM Type II - A1c 7.1 this admission. 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 BSG checks ACHS. DVT Prophylaxis: SQ Hep Code Status: FULL CODE PCP: Shayla Milan MD Patient's brother, Justin, is her medical POA. . dispo: neuro eval pending Admission and Anticipated Discharge Date Admission Date: March 20, 2024 Subjective Patient was seen and examined at bedside. Patient was sitting up in bed, on room air, NAD, resting comfortably. Patient reports cough at baseline, no increase in cough, denies sputum, denies sore throat/chest pain. Patient reports feeling "fuzzy" just prior to the syncopal episode, denies feeling any nausea/dry heaves/warmth. Patient denies any febrile illness or flulike illness in the recent past, reports eating okay and moving bowels okay. Physical Exam Physical Exam: GENERAL: Alert and oriented x3. NAD, on RA. HEENT: No pallor, no icterus. Pupils equal, round and reactive to light. Oral mucosa moist. NECK: No JVD, no neck masses. HEART: S1 and S2 heard. Regular rate and rhythm. No murmur, no gallop. RESPIRATORY SYSTEM: Normal AP diameter. No accessory muscle use. No wheezing, no crackles. ABDOMEN: Soft, bowel sounds present, nontender, no distention. CENTRAL NERVOUS SYSTEM: No facial droop. Speech is clear. Obeys simple commands. Moves extremities. EXTREMITIES: No edema, no erythema seen. Results & Data Results & Data Vital Signs (Past 12 Hours) Vital Signs Temp Pulse Pulse Pulse Resp BP BP 03/21/24 11:30 86 135/45 L 03/21/24 11:00 89 130/66 03/21/24 10:31 92 H 142/73 H 03/21/24 10:29 102 H 16 03/21/24 10:28 36.7 C 96 H 03/21/24 09:37 03/21/24 07:23 81 03/21/24 07:20 36.7 C 84 18 117/73 03/21/24 04:04 37.1 C 80 20 102/63 03/21/24 00:27 36.9 C 87 20 109/68 Pulse Ox O2 Del Method O2 Flow Rate 03/21/24 11:30 03/21/24 11:00 03/21/24 10:31 03/21/24 10:29 95 Room Air 03/21/24 10:28 03/21/24 09:37 Nasal Cannula 2 03/21/24 07:23 03/21/24 07:20 100 Nasal Cannula 2 03/21/24 04:04 98 Nasal Cannula 2 03/21/24 00:27 98 Nasal Cannula 2
--- NOTE | 2024-03-21 15:44 | Neurology Consultation ---
Date of Consultation March 21, 2024 Assessment & Plan (1) Episode of unresponsiveness: Concern for possible generalized seizure No Driving Per [place] State Law following episode of unresponsiveness/loss of consciousness Recommend obtain EEG Provide seizure precautions Utilize benzodiazepines emergently for any breakthrough clinical seizure like activity Agree with continued monitoring of orthostatic vital signs Continue to monitor telemetry closely Consider ZioPatch at DC if no evidence of arrhythmia during inpatient monitoring Recommend MRI brain per seizures protocol if possible Continue frequent neurological assessments Obtain stat CT brain without contrast for any acute neurological decline Continue to monitor/control blood pressure & blood glucose Continue metabolic workup/monitor electrolytes and replace as needed Ok from neurology perspective for VTE prophylaxis PT/OT/SLT to eval and treat Recommend eval for TRISHA and consider outpatient polysomnography Telehealth Consultation Telehealth Information Telehealth Information: I performed this visit using a real-time telehealth connection between my location and the patients location ([facility]). After connecting through interactive tele-video, patient was identified by name and date of and/or wristband check.Patient (or authorized healthcare fraud representative) was informed that this was a telemedicine visit and it was being conducted confidentially over secure lines. My office door was closed and no one else was present in the room with me.Patient (or authorized healthcare fraud representative) provided consent to proceed with the visit, expressed an understanding of privacy and security of the telemedicine visit, and gave permission to have a hospital fraud representative in the room in order to assist with the visit and to conduct portions of the visit, as needed. I informed the patient (or authorized healthcare fraud representative) that I reviewed their record and presented the opportunity for them to ask any questions regarding the visit today. The patient agreed to participate. History of Present Illness Reason for Consultation: Possible seizure Requesting Physician: Dr. Ramos Attending Physician: Halina Ramos MD History of Present Illness 68yo female with significant past medical hx including HTN, hyperlipidemia, TRISHA ESRD RA was undergoing planned LUE fistulogram when suddenly demonstrated episode of unresponsiveness described as including jaw clenching and growling. This reportedly lasted only 1-2 minutes. Patient denies visual auditory olfactory gustatory or gastrointestinal sensation leading up to the event. There was no reported of tongue biting. She denies hx of seizure or syncope. She was NPO for the procedure. There was no report of what her eyes were doing but there was reported no evidence of full body or extremity shaking. She is able to recall feeling week/faint "sort of dizzy" just prior to the event. She was reportedly fatigued/drowsy for the time after the event. There were no overt laboratory abnormalities noted upon presentation to the emergency room after the event. She has undergone a CT brain without contrast revealing no overt evidence of acute intracranial abnormality. Allergies Allergy/AdvReac Type Severity Reaction Status Date / Time ranitidine Allergy Intermediate Rash Verified 03/20/24 06:53 lisinopril AdvReac Intermediate Cough Verified 03/20/24 06:53 Home Medications Medication Instructions Recorded Confirmed Type etanercept 50 mg/mL (1 mL) 50 mg subcut WK 11/14/18 03/20/24 History subcutaneous syringe (Enbrel) fluticasone propionate 50 2 sprays intranasal QAM 11/14/18 03/20/24 History mcg/actuation nasal spray,suspension acetaminophen 325 mg tablet 325 - 975 mg (1 - 3 x 325 mg) PO 11/24/22 03/20/24 Rx (Tylenol) Q6H PRN Pain #60 tabs dulaglutide 3 mg/0.5 mL 3 mg (0.5 mL) subcut WK #2 mL 11/24/22 03/20/24 Rx subcutaneous pen injector (Trulicity) metoprolol tartrate 25 mg tablet 25 mg PO BID #60 tabs 01/06/23 03/20/24 Rx cholecalciferol (vitamin D3) 50 50 mcg PO DIRECTED 05/10/23 03/20/24 History mcg (2,000 unit) capsule (Vitamin D3) cyanocobalamin (vitamin B-12) 1,000 mcg PO QAM 05/10/23 03/20/24 History 1,000 mcg tablet (Vitamin B-12) tramadol 50 mg tablet 50 mg PO BID PRN Severe Pain 06/17/23 03/20/24 History (Scale Score 7-10) doxylamine-dextromethorphan 6.25 15 ml PO Q4H PRN Cough 09/23/23 03/20/24 History mg-15 mg/15 mL oral solution levocetirizine 5 mg tablet 5 mg PO PM 09/23/23 03/20/24 History (Allergy Relief (levocetirizine)) ondansetron HCl 4 mg tablet 4 mg PO Q8H PRN Nausea 09/23/23 03/20/24 History gabapentin 100 mg capsule 100 mg PO TID 01/19/24 03/20/24 History Nervive Pain Relieving 1 tab PO DIRECTED 03/20/24 03/20/24 History Patient History Medical History Hyperlipidemia History of anemia AV fistula left arm ESRD (end stage renal disease) on dialysis [facility] [place] Sensorineural hearing loss (SNHL) of both ears History of COVID-19 (~2022) no symptoms, resolved Rheumatoid arthritis [facility] Diabetes mellitus, type 2 trulicity Sleep apnea CPAP--noncompliant Grade A3 albuminuria Hypertension Obesity Surgical History S/P right cataract extraction Status post creation of arteriovenous fistula 06/21/23 @ [facility]--LEFT arm History of surgery removal of central venous catheter 01/19/24 History of colonoscopy History of carpal tunnel surgery of right wrist Hx laparoscopic cholecystectomy (11/18/22) Laparoscopic Cholecystectomy, Lysis of Adhesions.(Not Applicable) - Wilmer Godinez, History of nephrectomy (~1971) rt S/P tonsillectomy and adenoidectomy S/P appendectomy Family History Other Cancer Diabetes Lung cancer Social History Smoking Status: Never smoker Second Hand Exposure: No (mom when younger); Do You Dip or Chew Tobacco: No; Tobacco Cessation Education Requested by Patient: No Hx Alcohol Use: Yes Alcohol type: wine Hx Substance Use: No Preferred Language: Malay Communication Ability: Effective Visual Impairment: No Limitations Tannery Gummer Required: No Beliefs That Will Affect Care: None marital status: Single Current Living Situation: Alone Other Information That Helps Us Care for You: No Feels Safe at Home: Yes Safety Concerns: Feels Safe At This Time Assistive Devices: Cane, CPAP and Walker Physical Exam Neurological Examination: Mental Status: Awake and alert. Oriented to person, place, and time. Fluency naming repetition and comprehension appear grossly intact. Affect remains appropriate. CN testing: I: Denies changes in ability to smell II:Reports no changes in visual acuity III/IV/: No evidence of gaze preference, hippus, nystagmus or roving eye movements V: Facial sensation reportedly grossly intact to light touch bilaterally VII: Facial movements appear without evidence of asymmetry VIII: Hearing appears grossly intact to loud voice bilaterally IX/X: Palate appears to elevate symmetrically XI: Shoulder shrug appears symmetric/ grossly intact bilaterally XII: Tongue protrudes midline without evidence of biting Motor exam: Strength appears grossly intact/symmetric in all extremities Sensory: Sensation is reportedly grossly intact throughout Coordination: Finger to nose and heel to castillo were intact. No apparent evidence of dysmetria or dysdiadochokinesia Reflexes: Deferred Gait: Deferred Results & Data Vital Signs (Past 12 Hours) Vital Signs Temp Pulse Pulse Pulse Resp BP BP 03/21/24 13:33 36.6 C 88 134/67 03/21/24 13:00 65 146/101 H 03/21/24 12:30 84 151/73 H 03/21/24 12:00 94 H 125/65 03/21/24 11:30 86 135/45 L 03/21/24 11:00 89 130/66 03/21/24 10:31 92 H 142/73 H 03/21/24 10:29 102 H 16 03/21/24 10:28 36.7 C 96 H 03/21/24 09:37 03/21/24 07:23 81 03/21/24 07:20 36.7 C 84 18 117/73 03/21/24 04:04 37.1 C 80 20 102/63 Pulse Ox O2 Del Method O2 Flow Rate 03/21/24 13:33 03/21/24 13:00 03/21/24 12:30 03/21/24 12:00 03/21/24 11:30 03/21/24 11:00 03/21/24 10:31 03/21/24 10:29 95 Room Air 03/21/24 10:28 03/21/24 09:37 Nasal Cannula 2 03/21/24 07:23 03/21/24 07:20 100 Nasal Cannula 2 03/21/24 04:04 98 Nasal Cannula 2 Laboratory Results Abnormal lab results 03/20/24 03/20/24 03/21/24 Range/Units 17:37 20:12 05:58 RBC 3.18 L (4.20-5.40) M/uL Hgb 10.4 L (12.0-16.0) g/dl Hct 32.8 L (37.0-47.0) % MCV 103.1 H (80.0-100.0) fL MCHC 31.7 L (32.0-36.0) g/dL RDW Std Deviation 57.3 H (36.4-46.3) fL RDW Coeff of Jax 14.9 H (11.5-14.5) % BUN 29 H (6-23) mg/dl Creatinine 3.00 H D (0.6-1.2) mg/dl BUN/Creatinine Ratio 9.7 L (10-20) Glucose 131 H (70-99(Fasting)) mg/dl POC Glucose 132 H (70-99) mg/dl Urine pH 8.5 H (4.5-7.5) Urine Protein 2+ H (Negative) Medications Administered Home Medications Medication Instructions Recorded Confirmed Last Taken etanercept 50 mg/mL (1 mL) 50 mg subcut WK 11/14/18 03/20/24 03/10/24 18:00 subcutaneous syringe (Enbrel) fluticasone propionate 50 2 sprays intranasal QAM 11/14/18 03/20/24 01/31/24 mcg/actuation nasal spray,suspension acetaminophen 325 mg tablet 325 - 975 mg (1 - 3 x 325 mg) PO 11/24/22 03/20/24 03/20/24 05:30 (Tylenol) Q6H PRN Pain #60 tabs dulaglutide 3 mg/0.5 mL 3 mg (0.5 mL) subcut WK #2 mL 11/24/22 03/20/24 03/13/24 16:00 subcutaneous pen injector (Trulicity) metoprolol tartrate 25 mg tablet 25 mg PO BID #60 tabs 01/06/23 03/20/24 03/19/24 23:30 cholecalciferol (vitamin D3) 50 50 mcg PO DIRECTED 05/10/23 03/20/24 01/31/24 mcg (2,000 unit) capsule (Vitamin D3) cyanocobalamin (vitamin B-12) 1,000 mcg PO QAM 05/10/23 03/20/24 03/19/24 15:00 1,000 mcg tablet (Vitamin B-12) tramadol 50 mg tablet 50 mg PO BID PRN Severe Pain 06/17/23 03/20/24 01/31/24 (Scale Score 7-10) doxylamine-dextromethorphan 6.25 15 ml PO Q4H PRN Cough 09/23/23 03/20/24 01/31/24 mg-15 mg/15 mL oral solution levocetirizine 5 mg tablet 5 mg PO PM 09/23/23 03/20/24 03/19/24 (Allergy Relief (levocetirizine)) ondansetron HCl 4 mg tablet 4 mg PO Q8H PRN Nausea 09/23/23 03/20/24 01/31/24 gabapentin 100 mg capsule 100 mg PO TID 01/19/24 03/20/24 01/31/24 Nervive Pain Relieving 1 tab PO DIRECTED 03/20/24 03/20/24 03/18/24 Active Medications Generic Name Dose Route Start Last Admin Trade Name Freq PRN Reason Stop Dose Admin Acetaminophen 650 mg 03/20/24 19:54 03/21/24 03:13 Acetaminophen 325 Mg Tab PO 04/19/24 19:53 650 mg Q4H PRN Administration Pain or Fever Cyanocobalamin 1,000 mcg 03/21/24 09:00 03/21/24 09:05 Cyanocobalamin (B-12) 500 Mcg Tablet PO 04/20/24 08:59 1,000 mcg QAM LEV Administration Fluticasone Propionate 2 sprays 03/21/24 09:00 03/21/24 09:03 Fluticasone Propionate Na Spr 16 Gm Btl NA 04/20/24 08:59 Not Given QAM LEV Gabapentin 100 mg 03/20/24 19:54 03/21/24 06:17 Gabapentin 100 Mg Cap PO 04/19/24 19:53 100 mg TID PRN Administration Pain Guaifenesin 600 mg 03/20/24 21:00 03/21/24 09:05 Guaifenesin 600 Mg Tabcr PO 04/19/24 20:59 600 mg Q12 LEV Administration Vitamin D 50 mcg 03/21/24 09:00 03/21/24 09:03 Cholecalciferol 25 Mcg (1000 Units) Tab PO 04/20/24 08:59 Not Given [email or web address] [facility]
[2024-03-21] MEDS: LORazepam 0.5 MG TAB PO PRN (15:57)
[2024-03-21] MEDS: METOPROLOL TARTRATE 25 MG TAB PO SCH (15:58)
--- NOTE | 2024-03-21 17:04 | Magnetic Resonance Report ---
MRI of the brain performed without IV contrast History: Seizure Comparison: None Technique: Sagittal T1-weighted and axial T2-weighted, T2/FLAIR and diffusion-weighted with ADC map, and coronal T2 weighted images of the brain were obtained without IV contrast. Findings: No evidence for intracranial mass lesion, mass-effect, midline shift, or abnormal extra-axial fluid collection. There is moderate age-related generalized cerebral atrophy. No asymmetric mesial temporal lobe atrophy to specifically suggest mesial temporal sclerosis. No evidence for edema. Mild scattered high signal intensity change in the white matter on T2/FLAIR, most consistent with chronic small vessel ischemic disease. No abnormally reduced diffusion or evidence for acute infarct. Normal intravascular flow voids. Impression: Age-related changes. No acute intracranial pathology. No evidence for edema or mesial temporal sclerosis. Electronically signed by Van Montano 03-21-2024 5:04 PM
[2024-03-21] MEDS: HEPARIN SOD 5,000 UNIT/0.5 ML VIAL SQ SCH (21:16)
[2024-03-21] MEDS: traMADol HCL 50 MG TABLET PO STA (21:37)
[2024-03-22 03:47] VITALS: O2SAT 95
[2024-03-22 06:50] LABS: Hematocrit (blood only) 30.3 % (37.0-47.0); Hemoglobin 9.5 g/dl (12.0-16.0); Mean Corpuscular Hemoglobin 31.9 pg (25.0-34.0); Mean Corpuscular Hgb Conc 31.4 g/dL (32.0-36.0); Mean Corpuscular Volume 101.7 fL (80.0-100.0); Mean Platelet Volume 9.6 fL (9.4-12.4); Platelet Count 187 K/uL (130-400); RDW Coefficient of Variation 14.7 % (11.5-14.5); RDW Standard Deviation 54.6 fL (36.4-46.3); Red Blood Count 2.98 M/uL (4.20-5.40)
[2024-03-22 07:17] LABS: BUN Creatinine Ratio 9.6 (10-20); Calcium 8.9 mg/dl (8.6-10.3); Creatinine Clr Calc Pharmacy 23.7 ml/min; Magnesium 1.5 mg/dl (1.7-2.4); Phosphorus 2.8 mg/dl (2.5-4.9)
[2024-03-22 07:55] VITALS: RESP 18
[2024-03-22] MEDS: MAGNESIUM SULFATE / D5W 1 GM/100 ML BAG IV SCH (09:16)
--- NOTE | 2024-03-22 10:54 | Nephrology Progress Note ---
Date of Service March 22, 2024 Assessment & Plan Admission and Anticipated Discharge Date Admission Date: March 20, 2024 Subjective Assessment & Plan (1) ESRD on hemodialysis: Tomorrow is her dialysis day and will do her inpt if not discharged today. No issues with Dialysis yesterday. got qb of 400 and no issues with [place] either. no evidence of fluid overload. Electrolytes and renal panel from today was reviewed. (2) Episode of unresponsiveness: Unclear etiology. CT and MRI and neuro Consult reviewed (3) Dialysis AV fistula malfunction: As per Dr Luu. she did not have the procedure as planned yesterday because of unresponsiveness. However absolutely no issues with Dialysis--Qb or needles yesterday. Dr Luu and Dr Harris can decide about the need for this as outpt--non urgent basis. S--feels normal now. No issues with Dialysis yesterday. Physical Exam Constitutional: Awake and alert Nod sitress Respiratory: normal respiratory effort, lungs clear to auscultation Cardiovascular: RRR, no murmur, no edema Extremities: + AV fistula Gastrointestinal (Abdomen): soft, nontender, Psychiatric: A+Ox3, euthymic affect Results & Data Vital Signs (Past 12 Hours) Vital Signs Temp Pulse Pulse Resp BP Pulse Ox O2 Del Method 03/22/24 08:00 84 03/22/24 07:54 36.7 C 83 18 138/75 95 Room Air 03/22/24 03:46 37.0 C 85 20 131/75 95 Room Air 03/22/24 00:00 36.8 C 76 20 120/69 96 Room Air 03/21/24 23:19 Nasal Cannula O2 Flow Rate 03/22/24 08:00 03/22/24 07:54 03/22/24 03:46 03/22/24 00:00 03/21/24 23:19 2
[2024-03-22 11:47] VITALS: BP 108/68; PULSE 77; TEMP 98.4
--- NOTE | 2024-03-22 14:06 | Discharge Summary ---
Date of Service March 22, 2024 Admission HPI Per Admitting Provider Melinda Montelongo is a 68-year-old female with past medical history significant for DM type II, diabetic peripheral angiopathy, HLD, HTN, allergic rhinitis, TRISHA on CPAP, ESRD on hemodialysis M/W/F, congenital absence of right kidney, osteoporosis, Rheumatoid arthritis and other problems listed below who presented to the ED for evaluation on 03/20/2024 secondary to an unresponsive episode. History obtained from the patient and associated chart review. Patient seen at bedside with Dr. Benavidez in the ED. Patient was undergoing an elective left arm fistulogram with Dr. Luu upstairs this morning when she suddenly became unresponsive. The episode of unresponsiveness lasted approximately 1-2 minutes. Patient noted to be clenching her jaw during this event however there was no overt shaking per Dr. Luu's nursing staff. She did not fall during this episode. She was actually in the process of being transferred from a stretcher to the procedure table when this occurred. Of note, she received 3g IV Ancef prior be taken into the procedure room. She does remember feeling faint and dizzy prior to becoming unresponsive. She was noted to be coughing quite a bit prior to the episode. Patient endorsing some drowsiness following the unresponsive event. Patient was dealing with some nausea, vomiting and poor oral intake over the weekend but otherwise offers no other complaints. She was incidentally noted to be 84% SpO2 on room air in the ED however she denies any SOB or chest pain. She is currently saturating well on 2L via NC. She is not on oxygen chronically however she does use a CPAP HS given history of TRISHA. Patient endorses taking all of her home medications this morning. She denies any history of seizures. Also no known history of seizures in any of her close relatives. She still is endorsing some intermittent nausea however denies any episodes of vomiting in the ED or upstairs when this episode occurred. No smoking history. Infrequent alcohol use; reports having an alcoholic beverage here and there. She is requesting to eat as her appetite has returned. No known prior issues with swallowing. No history of CVA or TIA per patient's recollection. Admission Exam Per Admitting Provider On my exam, patient had no focal neurologic finding to suggest a CVA. Principal Diagnosis Episode of unresponsiveness Discharge Exam GENERAL: Alert and oriented x3. NAD, on RA. HEENT: No pallor, no icterus. Pupils equal, round and reactive to light. Oral mucosa moist. NECK: No JVD, no neck masses. HEART: S1 and S2 heard. Regular rate and rhythm. No murmur, no gallop. RESPIRATORY SYSTEM: Normal AP diameter. No accessory muscle use. No wheezing, no crackles. ABDOMEN: Soft, bowel sounds present, nontender, no distention. CENTRAL NERVOUS SYSTEM: No facial droop. Speech is clear. Obeys simple commands. Moves extremities. EXTREMITIES: No edema, no erythema seen. Discharge Data Allergies Allergy/AdvReac Type Severity Reaction Status Date / Time ranitidine Allergy Intermediate Rash Verified 03/20/24 06:53 lisinopril AdvReac Intermediate Cough Verified 03/20/24 06:53 Consultations 03/20/24 10:35 ED Decision to Admit Stat 03/20/24 11:09 Consult Nephrology Routine 03/20/24 11:09 Consult Neurology Routine Ordered Studies 03/20/24 08:33 CT abd pelvis wo con Stat CT head/brain wo con Stat 03/21/24 15:36 MR brain seizure wo con Routine Hospital Course (1) Episode of unresponsiveness: (2) Acute hypoxic respiratory failure: (3) Hypokalemia: (4) ESRD on hemodialysis: Plan 68-year-old female w/ PMH of DM type II, diabetic peripheral angiopathy, HLD, HTN, allergic rhinitis, TRISHA on CPAP, ESRD on hemodialysis M/W/F, congenital absence of right kidney, osteoporosis, Rheumatoid arthritis presented to the ED for evaluation on 03/20/2024 secondary to an unresponsive episode. Patient was undergoing an elective left arm fistulogram with Dr. Luu in the morning of 03/20/24 when she suddenly became unresponsive. The episode of unresponsiveness lasted approximately 1-2 minutes. Patient noted to be clenching her jaw and growling during this event however there was no overt shaking per nursing staff. She was actually in the process of being transferred from a stretcher to the procedure table when this occurred. She does remember feeling faint and dizzy prior to becoming unresponsive. Patient was still feeling quite drowsy following this event at the time of evaluation by admitting team on 03/20/24. No known prior history of seizures. She was managed for the following: Episode of Unresponsiveness: See above. Laboratory evaluation rather unremarkable thus far. Admitting Head CT negative. UA neg for UTI. Nl lactate. Admitting Trops x 2 negative, EKG without acute ST or T changes. Echo with EF of 50 to 55%, left ventricular systolic function normal. Follow orthostatic vitals. EEG pending, d/w neurology 03/22, MRI w/ no acute findings. no driving, ok for dc w/ close f/u w/ neuro/eeg results as OP. [employer] form filled , pt made aware of no driving. Acute Hypoxic Respiratory Failure: Patient incidentally noted to be hypoxic in the ED at 84% SpO2 on RA. CXR unremarkable. No prior O2 use. She does endorse a lingering cough but denies any SOB. Needed 2L via NC at presentation and saturating well. admitting VBG WNL. Resp BioFire negative. CTAP c/f bronchitis with bibasilar mucous plugging. Continue with Mucinex, pt stable on RA. No acute infection noted during the hospitalization. Hypokalemia: K+ 3.3 on presentation, Potassium repleted. Potassium is stable today. ESRD on Hemodialysis M/W/F: Patient follows with [facility] [Dr. Harris]. Undergoes HD M/W/F at [facility]. Nephrology to assist with dialysis. Patient makes urine. Other Chronic Medical Conditions: * RA/Immunosuppression - On weekly Enbrel injections. Continue gabapentin. * TRISHA - Continue CPAP HS. * HTN - c/w home meds as able * DM Type II - A1c 7.1 this admission. Hold certified home health aide, SSI while inpatient. BSG checks ACHS. DVT Prophylaxis: SQ Hep Code Status: FULL CODE PCP: Shayla Milan MD Patient's brother, Justin, is her medical POA. . dispo: neuro eval pending Follow-up with your primary care physician within a week time and likely you will need labs CBC/CMP/magnesium/phosphorus. You were evaluated for loss of consciousness from unknown reason. Neurology evaluated you. Your EEG read is still pending, follow-up with neurology in 2 weeks time upon discharge and follow-up on the EEG results during the visit. You will benefit from outpatient Zio patch monitoring and outpatient sleep study. Coordinate with the PCP office to set up the test. As discussed at the bedside, you cannot drive until cleared by neurology as an outpatient. Continue your dialysis as prior, continue to follow-up with your vascular surgery and nephrology as prior. Take your medications as prescribed. Please make sure that you are able to get your medications today by calling your pharmacy before you leave the hospital so that your treatment continuity is not broken. Home Health Attestation I certify that this patient is under my care and that I, or a physicians supply chain assistant working with me, had a face to-face encounter that meets the home health [id number] encounter requirements with this patient. The encounter with the patient was in whole, or in part, for the following medical condition, which is the primary reason for home health care (list medical condition): I certify that, based on my findings, the following services are medically necessary home health services: My clinical findings support the need for the above services because: Further, I certify that my clinical findings support that this patient is homebound (i.e. absences from home require considerable and taxing effort and are for medical reasons or yazdanism services or infrequently or of short duration when for other reasons) because: Certification for Home Health Services: Based on the above findings, I certify that this patient is confined to the home and needs intermittent assisted care, physical therapy and/or speech therapy or continues to need occupational therapy. The patient is under my care, and I have initiated the establishment of the plan of care. This patient will be followed by a physician who will periodically review the plan of care. Total Time Total Time Spent Total Time Spent (In Minutes): 35 Discharge Plan Discharge Items Patient Disposition: Home - Self-Care Reason For Visit: SYNCOPE Discharge Diagnosis: Episode of unresponsiveness Activity: As commented below Activity Comment: No driving as discussed at bedside. Non-emergency contact: Primary Care Provider Call non-emergency contact if: you have any medication questions Follow-up/Referrals: Shayla Milan MD [Primary Care Provider] - (Date & Time 03/29/2024 11:20 AM Provider: Shayla Milan MD Department: [facility], [facility] ) Diet: Dialysis Renal Addtl Attending Provider Instructions: Follow-up with your primary care physician within a week time and likely you will need labs CBC/CMP/magnesium/phosphorus. You were evaluated for loss of consciousness from unknown reason. Neurology evaluated you. Your EEG read is still pending, follow-up with neurology in 2 weeks time upon discharge and follow-up on the EEG results during the visit. You will benefit from outpatient Zio patch monitoring and outpatient sleep study. Coordinate with the PCP office to set up the test. As discussed at the bedside, you cannot drive until cleared by neurology as an outpatient. Continue your dialysis as prior, continue to follow-up with your vascular surgery and nephrology as prior. Take your medications as prescribed. Please make sure that you are able to get your medications today by calling your pharmacy before you leave the hospital so that your treatment continuity is not broken. Pending Studies at Discharge: No Stand-Alone Forms: My [facility] [employer], Smoking Cessation Medications and DC Order Prescriptions: New guaifenesin [Mucinex] 600 mg Tablet Extended Release 12hr 600 mg PO Q12 5 Days Qty: 10 0RF Continued Enbrel 50 mg/mL (1 mL) syringe 50 mg SQ WK Rx Instructions: Tuesday fluticasone propionate 50 mcg/actuation spray,suspension 2 sprays INT QA metoprolol tartrate 25 mg Tablet 25 mg PO BID Qty: 60 0RF acetaminophen [Tylenol] 325 mg Tablet 325 - 975 mg PO Q6H PRN (Reason: Pain) Qty: 60 0RF Rx Instructions: takes pretty regular Trulicity 3 mg/0.5 mL pen injector 3 mg SUBCUT WK Qty: 2 0RF Patient Comments: pt states she normally takes on tuesdays took this tuesday01/25/24 Rx Instructions: Tuesday ondansetron HCl 4 mg Tablet 4 mg PO Q8H PRN (Reason: Nausea) doxylamine-dextromethorphan 6.25-15 mg/15 mL Solution 15 ml PO Q4H PRN (Reason: Cough) levocetirizine [Allergy Relief (levocetirizin)] 5 mg tablet 5 mg PO PM gabapentin 100 mg Capsule 100 mg PO TID cyanocobalamin (vitamin B-12) [Vitamin B-12] 1,000 mcg tablet 1,000 mcg PO QAM cholecalciferol (vitamin D3) [Vitamin D3] 50 mcg (2,000 unit) capsule 50 mcg PO DIRECTED Rx Instructions: Tuesday, Tuesday, Tuesday on dialysis days tramadol 50 mg Tablet 50 mg PO BID PRN (Reason: Severe Pain (Scale Score 7-10)) Patient Comments: severe pain Nervive Pain Relieving 1 tab PO DIRECTED Rx Instructions: Per pt she takes an additional medication for nerve pain. She wasnt sure how to spell it but thinks it was "nercide" Discharge Orders: Discharge Order (Routine); Ordered 03/22/24 Ordered By: Halina Hunter/Other Patient Handouts: Managing Type 2 Diabetes Admission Data Admit Date/Time: 03/20/24 10:43 Attending Provider: Halina Ramos Admit Provider: Amish Benavidez Primary Care Provider: Shayla Milan Other Providers: Kaiden Kumar; Nickolas Burnham; Amish Benavidez
--- NOTE | 2024-03-23 06:46 | Electroencephalogram ---
EEG Procedure Note Date of Service March 20, 2024 Start / End Times Start Time: 1334 End Time: [address] Pramod Wellington History A 68 year old female w unresponsive episode. EEG performed for evaluation of epileptiform activity. Home Medication List Medication Instructions Recorded Confirmed Type etanercept 50 mg/mL (1 mL) 50 mg subcut WK 11/14/18 03/20/24 History subcutaneous syringe (Enbrel) fluticasone propionate 50 2 sprays intranasal QAM 11/14/18 03/20/24 History mcg/actuation nasal spray,suspension acetaminophen 325 mg tablet 325 - 975 mg (1 - 3 x 325 mg) PO 11/24/22 03/20/24 Rx (Tylenol) Q6H PRN Pain #60 tabs dulaglutide 3 mg/0.5 mL 3 mg (0.5 mL) subcut WK #2 mL 11/24/22 03/20/24 Rx subcutaneous pen injector (Trulicity) metoprolol tartrate 25 mg tablet 25 mg PO BID #60 tabs 01/06/23 03/20/24 Rx cholecalciferol (vitamin D3) 50 50 mcg PO DIRECTED 05/10/23 03/20/24 History mcg (2,000 unit) capsule (Vitamin D3) cyanocobalamin (vitamin B-12) 1,000 mcg PO QAM 05/10/23 03/20/24 History 1,000 mcg tablet (Vitamin B-12) tramadol 50 mg tablet 50 mg PO BID PRN Severe Pain 06/17/23 03/20/24 History (Scale Score 7-10) doxylamine-dextromethorphan 6.25 15 ml PO Q4H PRN Cough 09/23/23 03/20/24 H istory mg-15 mg/15 mL oral solution levocetirizine 5 mg tablet 5 mg PO PM 09/23/23 03/20/24 History (Allergy Relief (levocetirizine)) ondansetron HCl 4 mg tablet 4 mg PO Q8H PRN Nausea 09/23/23 03/20/24 History gabapentin 100 mg capsule 100 mg PO TID 01/19/24 03/20/24 History Nervive Pain Relieving 1 tab PO DIRECTED 03/20/24 03/20/24 History guaifenesin 600 mg tablet, 600 mg PO Q12 5 days #10 tabs 03/22/24 Rx extended release 12 hr (Mucinex) Inpatient Medication List Discontinued Medications Acetaminophen (Acetaminophen 325 Mg Tab) 650 mg PO Q4H PRN PRN Reason: Pain or Fever Stop: 04/19/24 19:53 Last Admin: 03/22/24 13:23 Dose: 650 mg Documented By: Admin: 03/22/24 09:15 Dose: 650 mg Documented By: Admin: 03/21/24 15:57 Dose: 650 mg Documented By: Admin: 03/21/24 03:13 Dose: 650 mg Documented By: Admin: 03/20/24 21:15 Dose: 650 mg Documented By: JUVENTINO Cyanocobalamin (Cyanocobalamin (B-12) 500 Mcg Tablet) [facility] [place] [place] Stop: 04/20/24 08:59 Last Admin: 03/22/24 09:10 Dose: 1,000 mcg Documented By: Admin: 03/21/24 09:05 Dose: 1,000 mcg Documented By: JONN Enoxaparin Sodium (Enoxaparin Inj 40 Mg/0.4 Ml Syr) 40 mg SQ Q24H ON LICENSE OF [facility] Stop: 04/19/24 19:59 Last Admin: 03/20/24 21:36 Dose: 40 mg Documented By: JUVENTINO Fluticasone Propionate (Fluticasone Propionate Na Spr 16 Gm Btl) 2 sprays NA QAM ON LICENSE OF [facility] Stop: 04/20/24 08:59 Last Admin: 03/22/24 09:09 Dose: 2 sprays Documented By: Admin: 03/21/24 09:03 Dose: Not Given Documented By: JONN Gabapentin (Gabapentin 100 Mg Cap) 100 mg PO TID PRN PRN Reason: Pain Stop: 04/19/24 19:53 Last Admin: 03/22/24 10:21 Dose: 100 mg Documented By: Admin: 03/21/24 06:17 Dose: 100 mg Documented By: Admin: 03/20/24 22:13 Dose: 100 mg Documented By: JUVENTINO Guaifenesin (Guaifenesin 600 Mg Tabcr) 600 mg PO Q12 LEV Stop: 04/19/24 20:59 Last Admin: 03/22/24 09:10 Dose: 600 mg Documented By: Admin: 03/21/24 21:16 Dose: 600 mg Documented By: Admin: 03/21/24 09:05 Dose: 600 mg Documented By: Admin: 03/20/24 21:36 Dose: 600 mg Documented By: JUVENTINO Heparin Sodium (Porcine) (Heparin Sod 5,000 Unit/0.5 Ml Vial) 5,000 units SQ Q12 LEV Stop: 04/20/24 20:59 Last Admin: 03/22/24 09:15 Dose: 5,000 units Documented By: Admin: 03/21/24 21:16 Dose: 5,000 units Documented By: CALDERON Sodium Chloride (Nss) 1,000 mls @ 999 mls/hr IV .Q1H1M ONE Stop: 03/20/24 09:39 Last Infusion: 03/20/24 10:07 Dose: Infused Documented By: Admin: 03/20/24 08:47 Dose: 999 mls/hr Documented By: DEYSI Potassium Chloride (K José Manuel / Wtr) 10 meq in 100 mls @ 100 mls/hr IV Q1H LEV Stop: 03/20/24 15:14 Last Infusion: 03/20/24 16:37 Dose: Infused Documented By: Admin: 03/20/24 15:20 Dose: 100 mls/hr Documented By: Infusion: 03/20/24 15:16 Dose: Infused Documented By: Admin: 03/20/24 14:16 Dose: 100 mls/hr Documented By: Infusion: 03/20/24 13:57 Dose: Infused Documented By: Admin: 03/20/24 12:57 Dose: 100 mls/hr Documented By: Infusion: 03/20/24 12:57 Dose: Infused Documented By: Admin: 03/20/24 11:56 Dose: 100 mls/hr Documented By: DEYSI Magnesium Sulfate/Dextrose (Magnesium Sulfate / D5w) 1 gm in 100 mls @ 50 mls/hr IV Q2H LEV Stop: 03/22/24 12:59 Last Infusion: 03/22/24 11:23 Dose: Infused Documented By: Admin: 03/22/24 09:16 Dose: 50 mls/hr Documented By: Infusion: 03/22/24 09:16 Dose: Infused Documented By: Admin: 03/22/24 09:16 Dose: 50 mls/hr Documented By: BENNY Lorazepam (Lorazepam 0.5 Mg Tab) 0.5 mg PO NOW PRN PRN Reason: mri Stop: 04/20/24 15:45 Last Admin: 03/21/24 15:57 Dose: 0.5 mg Documented By: RRR Metoprolol Tartrate (Metoprolol Tartrate 25 Mg Tab) 25 mg PO BID LEV Stop: 04/20/24 08:59 Last Admin: 03/22/24 10:21 Dose: 25 mg Documented By: Admin: 03/21/24 21:16 Dose: 25 mg Documented By: Admin: 03/21/24 15:58 Dose: 25 mg Documented By: RRR Ondansetron HCl (Ondansetron Inj 2 Mg/Ml 2 Ml Vial) 4 mg IV NOW STA Stop: 03/20/24 08:34 Last Admin: 03/20/24 08:47 Dose: 4 mg Documented By: DEYSI Tramadol HCl (Tramadol Hcl 50 Mg Tablet) 50 mg PO NOW STA Stop: 03/21/24 21:29 Last Admin: 03/21/24 21:37 Dose: 50 mg Documented By: TRM Vitamin D (Cholecalciferol 25 Mcg (1000 Units) Tab) 50 mcg PO MoWeFr@0900 LEV Stop: 04/20/24 08:59 Last Admin: 03/21/24 09:03 Dose: Not Given Documented By: RRR Description This is a 21 electrode EEG with a single channel dedicated to limited EKG. The electrodes were placed in accordance with the International 10-20 system.
== END 2024-03-22 16:43 | disposition home or self-care (01) | DRG 884 ==
LOC: EDBD 08:10 → ED 08:10 → EDUNIT# 08:10 → SUATTDRO 10:43 → EDINP 10:43 → 2N 19:34

== ENCOUNTER 2024-12-20 11:37 | Observation (INO) ==
--- NOTE | 2024-12-20 11:26 | History & Physical Report ---
Date of Service December 20, 2024 Assessment & Plan (1) Hemodialysis AV fistula thrombosis: Plan: Patient will need a new fistula creation and will need a permcath for dialysis in the interim. I have discussed the risks options and benefits of the procedure with the p atient. The patient understands the risks options and benefits and agrees to the procedure. History of Present Illness Chief Complaint: Occluded av fistula Primary Care Provider: Shayla Milan MD Patient is a 69yo female who had a fistulogram with intervention earlier this week. At dialysis she was found to have no thrill or bruit in the fistula. The fistula had a long severe stenosis in its proximal 10cm starting at the anastomosis. Allergies Allergy/AdvReac Type Severity Reaction Status Date / Time ranitidine Allergy Intermediate Rash Verified 12/18/24 06:53 lisinopril AdvReac Intermediate Cough Verified 12/18/24 06:53 Home Medications Medication Instructions Recorded Confirmed Type etanercept 50 mg/mL (1 mL) 50 mg subcut WK 11/14/18 12/18/24 History subcutaneous syringe (Enbrel) fluticasone propionate 50 2 sprays intranasal QAM 11/14/18 12/18/24 History mcg/actuation nasal spray,suspension acetaminophen 325 mg tablet 325 - 975 mg (1 - 3 x 325 mg) PO 11/24/22 12/18/24 Rx (Tylenol) Q6H PRN Pain #60 tabs dulaglutide 3 mg/0.5 mL 3 mg (0.5 mL) subcut WK #2 mL 11/24/22 12/18/24 Rx subcutaneous pen injector (Trulicity) metoprolol tartrate 25 mg tablet 25 mg PO BID #60 tabs 01/06/23 12/18/24 Rx cholecalciferol (vitamin D3) 50 50 mcg PO DIRECTED 05/10/23 12/18/24 History mcg (2,000 unit) capsule (Vitamin D3) cyanocobalamin (vitamin B-12) 1,000 mcg PO QAM 05/10/23 12/18/24 History 1,000 mcg tablet (Vitamin B-12) tramadol 50 mg tablet 50 mg PO BID PRN Severe Pain 06/17/23 12/18/24 History (Scale Score 7-10) doxylamine-dextromethorphan 6.25 15 ml PO Q4H PRN Cough 09/23/23 12/18/24 History mg-15 mg/15 mL oral solution levocetirizine 5 mg tablet 5 mg PO PM 09/23/23 12/18/24 History (Allergy Relief (levocetirizine)) ondansetron HCl 4 mg tablet 4 mg PO Q8H PRN Nausea 09/23/23 12/18/24 History gabapentin 100 mg capsule 100 mg PO TID 01/19/24 12/18/24 History guaifenesin 1,200 mg tablet, 1,200 mg PO BID 04/26/24 12/18/24 History extended release 12 hr (Mucinex) prednisone 5 mg tablet 5 mg PO DAILY 07/05/24 12/18/24 History Past Med/Surg History Problem List (Updated 12/20/24 @ 11:26 by Ulices Luu MD) Hemodialysis AV fistula thrombosis Fainting Hypokalemia Acute hypoxic respiratory failure ESRD on hemodialysis Drowsy (Acute) Episode of unresponsiveness (Acute) Central venous catheter in place Dialysis AV fistula malfunction Hemodialysis catheter malfunction ESRD (end stage renal disease) on dialysis CKD (chronic kidney disease) stage 3, GFR 30-59 ml/min HD Tue-Tue-Tue [facility] Acute UTI (Acute) Acute hyperkalemia (Acute) Rhabdomyolysis (Acute) YAMILE (acute kidney injury) (Acute) HLD (hyperlipidemia) Anemia Status post laparoscopic cholecystectomy Acute calculous cholecystitis Encounter for pre-operative examination Severe sepsis Cholecystitis Abdominal pain (Acute) Rheumatoid arthritis Medical History Hyperlipidemia History of anemia AV fistula left arm ESRD (end stage renal disease) on dialysis dialysis [facility]--tue/tue/tue Sensorineural hearing loss (SNHL) of both ears History of COVID-19 (~2022) no symptoms, resolved Rheumatoid arthritis [facility] Diabetes mellitus, type 2 trulicity Sleep apnea CPAP--noncompliant Grade A3 albuminuria Hypertension Obesity Surgical History S/P right cataract extraction Status post creation of arteriovenous fistula 06/21/23 @ [facility]--LEFT arm History of surgery removal of central venous catheter 01/19/24 History of colonoscopy History of carpal tunnel surgery of right wrist Hx laparoscopic cholecystectomy (11/18/22) Laparoscopic Cholecystectomy, Lysis of Adhesions.(Not Applicable) - Wilmer Godinez, History of nephrectomy (~1971) rt S/P tonsillectomy and adenoidectomy S/P appendectomy Family History Other Cancer Diabetes Lung cancer Social History Smoking Status: Never smoker Second Hand Exposure: No (mom when younger); Do You Dip or Chew Tobacco: No; Hx Alcohol Use: Yes Alcohol type: wine Hx Substance Use: No Preferred Language: Icelandic Communication Ability: Effective Visual Impairment: No Limitations Convention Manager Required: No Beliefs That Will Affect Care: None marital status: Single Current Living Situation: Alone Feels Safe at Home: Yes Assistive Devices: Cane, Glasses and Walker Review of Systems All systems reviewed & are unremarkable except as noted in HPI & below Physical Exam Physical Exam: Constitutional: WD/WN, vitals as above Respiratory: normal respiratory effort, lungs clear to auscultation Cardiovascular: RRR, no murmur, no edema Extremities: + AV fistula Gastrointestinal ( Abdomen): normal bowel sounds, soft, nontender, no hepatosplenomegaly Neurologic: CN's II-XI intact bilaterally and moves all extremities Psychiatric: A+Ox3, euthymic affect
[~2024-12-20 11:37] MED LIST changes: -ACET-1311 PO; -ETAN50IN2 SQ; -HYDC25 PO; -MULT-506 PO; +Patient's HEIGHT &/or WEIGHT Needed SCH; -SULI200T4 PO
[2024-12-20] MEDS: DEXTROSE IV SCH (12:22)
[2024-12-20] MEDS: SODIUM CHLORIDE IV SCH (12:22)
--- NOTE | 2024-12-20 13:31 | History & Physical Bridge Note ---
Date of Service December 20, 2024 History & Physical Bridge Note I have examined the patient, reviewed the History & Physical and in the interval since the performance of the History & Physical I have noted the following changes of clinical significance: no changes noted
--- NOTE | 2024-12-20 13:53 | Pre Anesthesia Assessment ---
Date of Service December 20, 2024 Pre Sedation Assessment Vital Signs Temp Pulse Resp BP Pulse Ox O2 Del Method 12/20/24 12:01 36.6 C 81 22 154/77 H 98 Room Air 12/20/24 11:40 36.6 C 81 22 154/7 H 98 Room Air Cardiovascular RRR, no murmur, no edema Respiratory normal respiratory effort, lungs clear to auscultation Pre-Sedation Airway Assessment Smoking Status: Never smoker Hx Sleep Apnea: No Short, Thick Neck: No Thyromental Distance: > or= 3.5 Finger Breadths Oral Cavity: + WNL Mallampati Class: II ASA: ASA3 NPO Status Date of Last Intake of Fluids: 12/19/24 Time of Last Intake of Fluids: 22:00 Date of Last Intake of Solid Food: 12/19/24 Time of Last Intake of Solid Foods: 18:00 Procedure Planning Contraindications for Sedation: none Current Medications Reviewed: Yes Notes The planned sedation has been discussed with the patient. Informed Consent was obtained. I have identified the patient, determined the appropriateness of sedation and have assessed the patient immediately prior to the procedure. All medicine(s) and interventions are by my order.
[2024-12-20] MEDS: ONDANSETRON INJ 2 MG/ML 2 ML VIAL ONE (14:06)
[2024-12-20] MEDS: MIDAZOLAM HCL 1 MG/ML 2ML VIAL ONE (14:06)
[2024-12-20] MEDS: HEPARIN SOD (PORCINE) 5,000 UNITS/ML VIAL ONE (14:09)
[2024-12-20] MEDS: LIDOCAINE 1% LOCAL 20 ML VIAL ONE ×2 (14:10→14:15)
--- NOTE | 2024-12-20 14:27 | Post Anesthesia Assessment ---
Date of Service December 20, 2024 Post Sedation Assessment Vital Signs Temp Pulse Pulse Resp BP Pulse Ox O2 Del Method 12/20/24 14:23 83 16 160/80 H 100 Oxymask 12/20/24 14:15 84 16 164/90 H 100 Oxymask 12/20/24 14:10 84 16 161/89 H 100 Oxymask 12/20/24 14:05 84 16 170/90 H 100 Oxymask 12/20/24 14:00 84 16 167/77 H 100 Oxymask 12/20/24 13:55 85 16 151/70 H 95 Oxymask 12/20/24 13:50 86 16 149/78 H 94 Oxymask 12/20/24 12:01 36.6 C 81 22 154/77 H 98 Room Air 12/20/24 11:40 36.6 C 81 22 154/7 H 98 Room Air O2 Flow Rate 12/20/24 14:23 4 12/20/24 14:15 4 12/20/24 14:10 4 12/20/24 14:05 4 12/20/24 14:00 4 12/20/24 13:55 4 12/20/24 13:50 4 12/20/24 12:01 12/20/24 11:40 Recovery Score Activity: Moves 4 extremities Respiration: Deep Breath/Cough Circulation: +/-20% PreAnes Value Consciousness: Fully Awake Oxygen Saturation: > 92% On Room Air Post Anesthesia Score: 10 Discharge Sedation Level of Care: Fast Track Phase II Post Sedation Plan On clinical assessment, the patient appears to have tolerated the sedation without complications. Patient is recovering as anticipated. Patient will continue to be monitored by nursing and may be discharged when sedation discharge criteria are met per below protocol. Upon Completions of procedure up to 15 minutes continue every 5 minute vital signs and the P.A.R. score; then discharge to a Phase I or Fast Track to Phase II per the following guidelines: * Discharge Patient to appropriate Phase II area if PAR is 8 or greater or return to pre- procedure baseline. The post - procedure orders will be as directed. * If PAR score is less than 8 or not return to pre-procedure baseline then patient will follow Phase I monitoring till PAR is reached for Phase II. The Phase I may be done in procedure room or may call to secure a Phase I area. * If naloxone or flumazenil are used for reversal, hold in Phase I for continued monitoring from when last reversal dose was given for a minimum of 60 minutes or longer pending the nurse and/or physician discretion of patient condition before discharge to Phase II. Please call the Sedation Physician to re-evaluate and complete post-note for discharge to Phase II area. Do NOT discharge from procedure sedation or Phase 1 until post- sedation evaluation note is complete by procedure /sedation MD Sedation Discharge Instructions to be given to the patient at discharge to home.
--- NOTE | 2024-12-20 14:27 | Operative Report ---
Post Operative Report Pre & Post Diagnosis Operation Date: 12/20/24 13:00 Pre-Op Diagnosis: Thrombosed Fistula Post-Op Diagnosis: Thrombosed Fistula I identified the patient and participated in the time-out.: Yes Procedure Operation Date: 12/20/24 13:00 Actual Procedures p Perm Catheter Placement,Right Internal Jugular Approach,Ultrasound Localization of Right Internal Jugular Vein,Fluoroscopy for Positioning, Moderate Sedation [id number](Right) - Ulices Luu MD Surgeon Ulices Luu MD Underwriting Internship none Estimated Blood Loss 5 Findings Consistent with Post-Op Diagnosis Specimens none Anesthesia Type RN Sedation Complications none Disposition Accompanied Patient To Recovery: No Disposition: Recovery Room Indications Patient eventually fistula earlier this week. Fistula is now thrombosed. She is admitted for insertion of PermCath for dialysis. I have discussed the risks options and benefits of the procedure with the patient. The patient understands the risks options and benefits and agrees to the procedure. Description of Procedure Patient was taken to the angio suite and placed in the supine position. The right side of the neck and chest wall were prepped and draped in a sterile manner. The patient was identified and a timeout performed. Local anesthesia was then administered to the appropriate areas of the neck and chest wall. U ltrasound was then used to locate the right internal jugular vein. The vein compressed easily, had no filing defects, and was patent. The vein was then punctured under direct ultrasound imaging. A guidewire was then passed centrally under fluoroscopic imaging. A stab wound was then made in the anterior chest wall and a 19 cm permcath was passed from the stab wound on the chest wall to the puncture site on the neck. The puncture site was then dilated till the 14Fr peel away sheath was inserted. The permcath was then inserted through the sheath to a central position in the distal superior vena cava. The peel away sheath was then removed. The catheter was then sutured in place using nylon sutures. The puncture was then closed using a 4-0 Vicryl subcuticular suture. Dermabond was used for a dressing on the puncture site. Both ports aspirated and flushed easily and were then packed with heparin. A sterile dressing was applied to the catheter. The patient left the operation room in satisfactory condition and tolerated the procedure well. All needle and sponge counts were correct at the end of the procedure. I attest to the content of the Intraoperative Record and any orders documented therein. Any exceptions are noted below.
[2024-12-20 18:26] LABS: Hep B Surface Ag with confirm Negative (Negative)
--- NOTE | 2024-12-20 18:29 | History & Physical Report ---
Date of Service December 20, 2024 Assessment & Plan (1) Hemodialysis AV fistula thrombosis: (2) ESRD on hemodialysis: (3) Rheumatoid arthritis: (4) Sleep apnea: (5) Diabetes mellitus, type 2: Plan 69 yo female with pmhx of DM type II, diabetic peripheral angiopathy, HLD, HTN, allergic rhinitis, TRISHA on CPAP, ESRD on hemodialysis M/W/F, congenital absence of right kidney, osteoporosis, Rheumatoid arthritis who presented today for outpatient permacath placement, and now requires admission for dialysis and monitoring post dialysis per vascular surgery. #S/p Port a Cath Placement #Fistula Thrombosis #ESRD -patient has thrombosed fistula, port a cath placed by vascular surgery today -vascular surgery requesting admission for monitoring overnight post dialysis -patient with slight pain at cath placement site otherwise relatively asymptomatic Plan: -dialysis today -monitor overnight post dialysis -oxycodone 5mg q4hr prn for post procedure pain -would recommend different chronic medication at home other than tramadol on discharge given ESRD -continue gabapentin at renally dosed levels -likely discharge in AM pending medical stability #Rheumatoid Arthritis -continue prednisone #TRISHA -home CPAP ordered I spent a total of 80 minutes in direct patient care, including [id number] time with the patient and/or family, reviewing medical records, ordering and reviewing diagnostic tests, and coordinating care with other healthcare providers. This time includes: history taking, physical examination, medical decision making, counseling, ECG interpretation, imaging interpretation, lab interpretation, orders, and education, excluding time spent in the performance of separately billed services. Admission and Anticipated Discharge Date Admission Date: December 20, 2024 History of Present Illness Chief Complaint: -thrombosed fistula Primary Care Provider: Shayla Milan MD 69 yo female with pmhx of DM type II, diabetic peripheral angiopathy, HLD, HTN, allergic rhinitis, TRISHA on CPAP, ESRD on hemodialysis M/W/F, congenital absence of right kidney, osteoporosis, Rheumatoid arthritis who presented today for outpatient permacath placement, and now requires admission for dialysis and monitoring post dialysis. Last admission was in 03/2024 for unresponsivenss after fistulogram. During fistulogram this time, found to have thrombosed fistula, booker a cath placed, vascular surgery recommending admission for dialysis and monitoring overnight. Patient seen and examined at bedside. Patient doing well today. States she feels like her fistula is pulsating. Other than that feels at baseline. Looking forward to getting dialysis and going home. Patient full code at this time. Allergies Allergy/AdvReac Type Severity Reaction Status Date / Time ranitidine Allergy Intermediate Rash Verified 12/20/24 11:44 lisinopril AdvReac Intermediate Cough Verified 12/20/24 11:44 Home Medications Medication Instructions Recorded Confirmed Type etanercept 50 mg/mL (1 mL) 50 mg subcut WK 11/14/18 12/20/24 History subcutaneous syringe (Enbrel) fluticasone propionate 50 2 sprays intranasal QAM 11/14/18 12/20/24 History mcg/actuation nasal spray,suspension acetaminophen 325 mg tablet 325 - 975 mg (1 - 3 x 325 mg) PO 11/24/22 12/20/24 Rx (Tylenol) Q6H PRN Pain #60 tabs dulaglutide 3 mg/0.5 mL 3 mg (0.5 mL) subcut WK #2 mL 11/24/22 12/20/24 Rx subcutaneous pen injector (Trulicity) metoprolol tartrate 25 mg tablet 25 mg PO BID #60 tabs 01/06/23 12/20/24 Rx cholecalciferol (vitamin D3) 50 50 mcg PO DIRECTED 05/10/23 12/20/24 History mcg (2,000 unit) capsule (Vitamin D3) cyanocobalamin (vitamin B-12) 1,000 mcg PO QAM 05/10/23 12/20/24 History 1,000 mcg tablet (Vitamin B-12) tramadol 50 mg tablet 50 mg PO BID PRN Severe Pain 06/17/23 12/20/24 History (Scale Score 7-10) doxylamine-dextromethorphan 6.25 15 ml PO Q4H PRN Cough 09/23/23 12/20/24 History mg-15 mg/15 mL oral solution levocetirizine 5 mg tablet 5 mg PO PM 09/23/23 12/20/24 History (Allergy Relief (levocetirizine)) ondansetron HCl 4 mg tablet 4 mg PO Q8H PRN Nausea 09/23/23 12/20/24 History gabapentin 100 mg capsule 100 mg PO TID 01/19/24 12/20/24 History guaifenesin 1,200 mg tablet, 1,200 mg PO BID 04/26/24 12/20/24 History extended release 12 hr (Mucinex) prednisone 5 mg tablet 5 mg PO DAILY 07/05/24 12/20/24 History diphenhydramine HCl 25 mg tablet 25 mg PO HS PRN Allergy Symptoms 12/20/24 12/20/24 History Past Med/Surg History Problem List Hemodialysis AV fistula thrombosis Fainting Hypokalemia Acute hypoxic respiratory failure ESRD on hemodialysis Drowsy (Acute) Episode of unresponsiveness (Acute) Central venous catheter in place Dialysis AV fistula malfunction Hemodialysis catheter malfunction ESRD (end stage renal disease) on dialysis CKD (chronic kidney disease) stage 3, GFR 30-59 ml/min HD Tue- [facility] Acute UTI (Acute) Acute hyperkalemia (Acute) Rhabdomyolysis (Acute) YAMILE (acute kidney injury) (Acute) HLD (hyperlipidemia) Anemia Status post laparoscopic cholecystectomy Acute calculous cholecystitis Encounter for pre-operative examination Severe sepsis Cholecystitis Abdominal pain (Acute) Rheumatoid arthritis Medical History Hyperlipidemia History of anemia AV fistula left arm ESRD (end stage renal disease) on dialysis [facility] Sensorineural hearing loss (SNHL) of both ears History of COVID-19 (~2022) no symptoms, resolved Rheumatoid arthritis [facility] Diabetes mellitus, type 2 trulicity Sleep apnea CPAP--noncompliant Grade A3 albuminuria Hypertension Obesity Surgical History S/P right cataract extraction Status post creation of arteriovenous fistula 06/21/23 @ [facility]--LEFT arm History of surgery removal of central venous catheter 01/19/24 History of colonoscopy History of carpal tunnel surgery of right wrist Hx laparoscopic cholecystectomy (11/18/22) Laparoscopic Cholecystectomy, Lysis of Adhesions.(Not Applicable) - Wilmer Godinez, History of nephrectomy (~1971) rt S/P tonsillectomy and adenoidectomy S/P appendectomy Family History Other Cancer Diabetes Lung cancer Social History Smoking Status: Never smoker Second Hand Exposure: Yes (from mother); Do You Dip or Chew Tobacco: No; Hx Alcohol Use: No Hx Substance Use: No Preferred Language: Malawian Communication Ability: Effective Visual Impairment: No Limitations Auto Striper Required: No Beliefs That Will Affect Care: None marital status: Single Current Living Situation: Alone Other Information That Helps Us Care for You: No Feels Safe at Home: Yes Safety Concerns: Feels Safe At This Time Assistive Devices: Cane and Walker Assistive Devices Comment: uses a walker at home and in car if needed. used cane today. Review of Systems Review of Systems: CONSTITUTIONAL: Patient denies fevers, chills, sweats and weight changes. EYES: Patient denies any visual symptoms. EARS, NOSE, AND THROAT: No difficulties with hearing. No symptoms of rhinitis or sore throat. CARDIOVASCULAR: Patient denies chest pains, palpitations, orthopnea and paroxysmal nocturnal dyspnea. RESPIRATORY: No dyspnea on exertion, no wheezing or cough. GI: No nausea, vomiting, diarrhea, constipation, abdominal pain, hematochezia or melena. : No urinary hesitancy or dribbling. No nocturia or urinary frequency. No abnormal urethral discharge. MUSCULOSKELETAL: pulsating fistula NEUROLOGIC: No chronic headaches, no seizures. Patient denies numbness, tingling or weakness. PSYCHIATRIC: Patient denies problems with mood disturbance. No problems with anxiety. ENDOCRINE: No excessive urination or excessive thirst. DERMATOLOGIC: Patient denies any rashes or skin changes. Physical Exam Physical Exam: Gen: A&O 3 NAD HEENT: NCAT, EOMI, not icteric. External ears normal. No rhinorrhea. Moist mucous membranes. Neck: Supple, full range of motion, no observable masses, No meningeal sign. Lungs: No Respiratory distress. Port a cath placed on chest CV: RRR, no edema. Abdomen: Soft, nondistended, No rebound tenderness. MSK: No joint swelling, no redness. Skin: No rashes, petechiae, lesions. Normal color per patient. Neuro: Normal Gait, Grossly intact. Psych: Appropriate for situation. Results & Data Results & Data Vital Signs (Past 12 Hours) Vital Signs Temp Pulse Pulse Pulse Pulse Resp BP 12/20/24 18:00 68 111/68 12/20/24 17:30 79 75/65 L 10/09/25 17:00 91 H 119/68 12/20/24 16:30 92 H 137/77 12/20/24 16:08 94 H 173/85 H 12/20/24 15:57 36.7 C 99 H 12/20/24 15:30 96 H 18 12/20/24 15:00 36.4 C L 93 H 18 12/20/24 14:30 36.6 C 90 16 12/20/24 14:23 83 16 12/20/24 14:15 84 16 12/20/24 14:10 84 16 12/20/24 14:05 84 16 12/20/24 14:00 84 16 12/20/24 13:55 85 16 12/20/24 13:50 86 16 12/20/24 12:01 36.6 C 81 22 12/20/24 11:40 36.6 C 81 22 BP Pulse Ox O2 Del Method O2 Flow Rate 12/20/24 18:00 12/20/24 17:30 12/20/24 17:00 12/20/24 16:30 12/20/24 16:08 12/20/24 15:57 12/20/24 15:30 184/91 H 97 Room Air 12/20/24 15:00 182/109 H 96 Room Air 12/20/24 14:30 180/102 H 99 Room Air 12/20/24 14:23 160/80 H 100 Oxymask 4 12/20/24 14:15 164/90 H 100 Oxymask 4 12/20/24 14:10 161/89 H 100 Oxymask 4 12/20/24 14:05 170/90 H 100 Oxymask 4 12/20/24 14:00 167/77 H 100 Oxymask 4 12/20/24 13:55 151/70 H 95 Oxymask 4 12/20/24 13:50 149/78 H 94 Oxymask 4 12/20/24 12:01 154/77 H 98 Room Air 12/20/24 11:40 154/7 H 98 Room Air Laboratory Results -personally reviewed, K of 4.8 Medications Administered Dextrose/Sodium Chloride () 1,000 mls @ 10 mls/hr IV .Q24H LEV Stop: 12/21/24 05:59 Last Infusion: 12/20/24 13:39 Dose: Infused Documented By: HBAnjum Admin: 12/20/24 12:22 Dose: 10 mls/hr Documented By: MICAELA
[2024-12-20] MEDS ORDERED: DOXYLAMINE PO PRN (19:23)
[2024-12-20] MEDS ORDERED: POLYETHYLENE (MIRALAX) 17 GM PACK PO PRN (19:23)
[2024-12-20] MEDS ORDERED: ACETAMINOPHEN 325 MG TAB PO PRN (19:23)
[2024-12-20] MEDS ORDERED: DEXTROMETHORPHAN PO PRN (19:23)
[2024-12-20] MEDS ORDERED: ONDANSETRON 4 MG OD TAB PO PRN (19:32)
[2024-12-20] MEDS ORDERED: diphenhydrAMINE Capsule 25 MG CAP PO PRN (19:42)
--- NOTE | 2024-12-20 20:35 | Nephrology Consultation ---
Date of Consultation December 20, 2024 Assessment & Plan (1) ESRD on hemodialysis: Her normal dialysis days are / She was last dialysed on Tuesday, She has now got a TDC - Dialysis to for 3 hr w/ 3.0 UF She will be dialysed again tmr on the same prescription.( she has early slot in outpatinet which she will miss as she is inpatinet) Please continue her on all her outpatinet medications (2) Hemodialysis AV fistula thrombosis: - To be [facility] History of Present Illness Reason for Consultation: ESRD a/w clotted fistula s/p New TDC, Attending Physician: Amish Benavidez MD History of Present Illness 69 yo female with pmhx of DM type II, diabetic peripheral angiopathy, HLD, HTN, allergic rhinitis, TRISHA on CPAP, ESRD on hemodialysis M/W/F, congenital absence of right kidney, osteoporosis, Rheumatoid arthritis who presented today for outpatient permacath placement, Her last dialysis was Tuesday , she retuned for dialysis on Tuesday after fistulogram on Tuesday but her fistuka was found to be clotted, She was admitted for TDC placement to continue dialysis until the fistula could be salvaged, Vascular surgery recommeded admission for dialysis and monitoring overnight. Patient seen and examined at on Dialysis. Alert and orineted NO bleeding/ swelling at the exit site, - no c/o pain at the exit site.. Allergies Allergy/AdvReac Type Severity Reaction Status Date / Time ranitidine Allergy Intermediate Rash Verified 12/20/24 11:44 lisinopril AdvReac Intermediate Cough Verified 12/20/24 11:44 Home Medications Medication Instructions Recorded Confirmed Type etanercept 50 mg/mL (1 mL) 50 mg subcut WK 11/14/18 12/20/24 History subcutaneous syringe (Enbrel) fluticasone propionate 50 2 sprays intranasal QAM 11/14/18 12/20/24 History mcg/actuation nasal spray,suspension acetaminophen 325 mg tablet 325 - 975 mg (1 - 3 x 325 mg) PO 11/24/22 12/20/24 Rx (Tylenol) Q6H PRN Pain #60 tabs dulaglutide 3 mg/0.5 mL 3 mg (0.5 mL) subcut WK #2 mL 11/24/22 12/20/24 Rx subcutaneous pen injector (Trulicity) metoprolol tartrate 25 mg tablet 25 mg PO BID #60 tabs 01/06/23 12/20/24 Rx cholecalciferol (vitamin D3) 50 50 mcg PO DIRECTED 05/10/23 12/20/24 History mcg (2,000 unit) capsule (Vitamin D3) cyanocobalamin (vitamin B-12) 1,000 mcg PO QAM 05/10/23 12/20/24 History 1,000 mcg tablet (Vitamin B-12) tramadol 50 mg tablet 50 mg PO BID PRN Severe Pain 06/17/23 12/20/24 History (Scale Score 7-10) doxylamine-dextromethorphan 6.25 15 ml PO Q4H PRN Cough 09/23/23 12/20/24 History mg-15 mg/15 mL oral solution levocetirizine 5 mg tablet 5 mg PO PM 09/23/23 12/20/24 History (Allergy Relief (levocetirizine)) ondansetron HCl 4 mg tablet 4 mg PO Q8H PRN Nausea 09/23/23 12/20/24 History gabapentin 100 mg capsule 100 mg PO TID 01/19/24 12/20/24 History guaifenesin 1,200 mg tablet, 1,200 mg PO BID 04/26/24 12/20/24 History extended release 12 hr (Mucinex) prednisone 5 mg tablet 5 mg PO DAILY 07/05/24 12/20/24 History diphenhydramine HCl 25 mg tablet 25 mg PO HS PRN Allergy Symptoms 12/20/24 12/20/24 History Patient History Medical History Hyperlipidemia History of anemia AV fistula left arm ESRD (end stage renal disease) on dialysis dialysis [facility] in [place]--mon/wed/fri Sensorineural hearing loss (SNHL) of both ears History of COVID-19 (~2022) no symptoms, resolved Rheumatoid arthritis [facility] Diabetes mellitus, type 2 trulicity Sleep apnea CPAP--noncompliant Grade A3 albuminuria Hypertension Obesity Surgical History S/P right cataract extraction Status post creation of arteriovenous fistula 06/21/23 @ [facility]--LEFT arm History of surgery removal of central venous catheter 01/19/24 History of colonoscopy History of carpal tunnel surgery of right wrist Hx laparoscopic cholecystectomy (11/18/22) Laparoscopic Cholecystectomy, Lysis of Adhesions.(Not Applicable) - Wilmer Godinez, History of nephrectomy (~1972) rt S/P tonsillectomy and adenoidectomy S/P appendectomy Family History Other Cancer Diabetes Lung cancer Social History Smoking Status: Never smoker Second Hand Exposure: Yes (from mother); Do You Dip or Chew Tobacco: No; Hx Alcohol Use: No Hx Substance Use: No Preferred Language: Yemeni Communication Ability: Effective Visual Impairment: No Limitations 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 used cane today. Review of Systems 2 Review of Systems: All systems reviewed & are unremarkable except as noted in HPI & below Physical Exam 2 Physical Exam: Gen: A&O 3 NAD HEENT: NCAT, EOMI, not icteric. Neck: Supple, full range of motion, no observable masses, No meningeal sign. Lungs: No Respiratory distress. Port a cath placed on chest, no swelling / no discharge, CV: RRR, no edema. Abdomen: Soft, nondistended, No rebound tenderness. MSK: No joint swelling, no redness. Skin: No rashes, petechiae, lesions. Normal color per patient. Neuro: Normal Gait, Grossly intact. Results & Data Vital Signs (Past 12 Hours) Vital Signs Temp Pulse Pulse Pulse Pulse Resp BP 12/20/24 19:15 36.7 C 89 12/20/24 19:00 90 109/59 L 12/20/24 18:30 89 102/55 L 12/20/24 18:00 68 111/68 12/20/24 17:30 79 75/65 L 12/20/24 17:00 91 H 119/68 12/20/24 16:30 92 H 137/77 12/20/24 16:08 94 H 173/85 H 12/20/24 15:57 36.7 C 99 H 12/20/24 15:30 96 H 18 12/20/24 15:00 36.4 C L 93 H 18 12/20/24 14:30 36.6 C 90 16 12/20/24 14:23 83 16 12/20/24 14:15 84 16 12/20/24 14:10 84 16 12/20/24 14:05 84 16 12/20/24 14:00 84 16 12/20/24 13:55 85 16 12/20/24 13:50 86 16 12/20/24 12:01 36.6 C 81 22 12/20/24 11:40 36.6 C 81 22 BP Pulse Ox O2 Del Method O2 Flow Rate 12/20/24 19:15 138/65 12/20/24 19:00 12/20/24 18:30 12/20/24 18:00 12/20/24 17:30 12/20/24 17:00 12/20/24 16:30 12/20/24 16:08 12/20/24 15:57 12/20/24 15:30 184/91 H 97 Room Air 12/20/24 15:00 182/109 H 96 Room Air 12/20/24 14:30 180/102 H 99 Room Air 12/20/24 14:23 160/80 H 100 Oxymask 4 12/20/24 14:15 164/90 H 100 Oxymask 4 12/20/24 14:10 161/89 H 100 Oxymask 4 12/20/24 14:05 170/90 H 100 Oxymask 4 12/20/24 14:00 167/77 H 100 Oxymask 4 12/20/24 13:55 151/70 H 95 Oxymask 4 12/20/24 13:50 149/78 H 94 Oxymask 4 12/20/24 12:01 154/77 H 98 Room Air 12/20/24 11:40 154/7 H 98 Room Air Laboratory Results 12/20/24 11:46
[2024-12-20] MEDS: GABAPENTIN 100 MG CAP PO SCH (21:49)
[2024-12-20] MEDS: METOPROLOL TARTRATE 25 MG TAB PO SCH (21:49)
[2024-12-20] MEDS: DEXTROMETHORPHAN POLYMR COMPLX 30MG/5 ML BTL PO PRN (23:07)
[2024-12-20] MEDS: ACETAMINOPHEN 325 MG TAB PO PRN (23:07)
[2024-12-20] MEDS: CETIRIZINE HCL 10 MG TABLET PO ONE (23:07)
[2024-12-21 08:26] VITALS: RESP 18
[2024-12-21 08:54] LABS: Hematocrit (blood only) 32.3 % (37.0-47.0); Hemoglobin 9.7 g/dl (12.0-16.0); Mean Corpuscular Hemoglobin 32.2 pg (25.0-34.0); Mean Corpuscular Volume 107.3 fL (80.0-100.0); Platelet Count 191 K/uL (130-400); RDW Standard Deviation 52.9 fL (36.4-46.3); Red Blood Count 3.01 M/uL (4.20-5.40); White Blood Count 8.70 K/ul (4.8-10.8)
[2024-12-21 09:11] LABS: Anion Gap 8.0 (3-11); Blood Urea Nitrogen 21.0 mg/dl (6-23); Calcium 8.8 mg/dl (8.6-10.3); Carbon Dioxide 26.0 mmol/L (21-32); Chloride 103.0 mmol/L (98-107); Creatinine Clr Calc Pharmacy 22.4 ml/min; Glucose 130.0 mg/dl (70-99(Fasting)); Magnesium 1.6 mg/dl (1.7-2.4); Potassium 4.3 mmol/L (3.5-5.1); Sodium 137.0 mmol/L (136-145)
--- NOTE | 2024-12-21 09:52 | Dialysis Progress Note ---
Date of Service December 21, 2024 Assessment & Plan Admission and Anticipated Discharge Date Admission Date: December 20, 2024 Subjective Assessment & Plan (1) ESRD on hemodialysis: Her normal dialysis days are She was last dialysed on Tuesday, She has now got a TDC - Dialysis for 3 hr w/ 3.0 UF Supposed to be dischaged after dialysis today. (2) Hemodialysis AV fistula thrombosis: - To be followed by Vascular as outpatient for further interventions S=----Patient seen and examined at on Dialysis. Alert and oriented NO bleeding/ swelling at the exit site, now c/o pain at the exit site. Physical Exam Physical Exam: Gen: A&O 3 NAD HEENT: NCAT, EOMI, not icteric. External ears normal. No rhinorrhea. Moist mucous membranes. Neck: Supple, full range of motion, no observable masses, No meningeal sign. Lungs: No Respiratory distress. Port a cath placed on chest CV: RRR, no edema. Abdomen: Soft, nondistended, No rebound tenderness. MSK: No joint swelling, no redness. Skin: No rashes, petechiae, lesions. Normal color per patient. Neuro: Normal Gait, Grossly intact. Psych: Appropriate for situation. Results & Data Vital Signs (Past 12 Hours) Vital Signs Temp Pulse Resp BP Pulse Ox O2 Del Method 12/21/24 08:25 36.6 C 92 H 18 143/79 H 98 Room Air 12/21/24 03:46 36.9 C 85 20 102/76 96 Room Air 12/21/24 00:20 37.0 C 80 20 136/72 95 Room Air 12/20/24 23:49 Room Air
--- NOTE | 2024-12-21 11:23 | Discharge Summary ---
Date of Service December 21, 2024 Admission HPI Per Admitting Provider 69 yo female with pmhx of DM type II, diabetic peripheral angiopathy, HLD, HTN, allergic rhinitis, TRISHA on CPAP, ESRD on hemodialysis M/W/F, congenital absence of right kidney, osteoporosis, Rheumatoid arthritis who presented today for outpatient permacath placement, and now requires admission for dialysis and monitoring post dialysis. Last admission was in 03/2024 for unresponsivenss after fistulogram. During fistulogram this time, found to have thrombosed fistula, booker a cath placed, vascular surgery recommending admission for dialysis and monitoring overnight. Patient seen and examined at bedside. Patient doing well today. States she feels like her fistula is pulsating. Other than that feels at baseline. Looking forward to getting dialysis and going home. Patient full code at this time. Admission Exam Per Admitting Provider Gen: A&O 3 NAD HEENT: NCAT, EOMI, not icteric. External ears normal. No rhinorrhea. Moist mucous membranes. Neck: Supple, full range of motion, no observable masses, No meningeal sign. Lungs: No Respiratory distress. Port a cath placed on chest CV: RRR, no edema. Abdomen: Soft, nondistended, No rebound tenderness. MSK: No joint swelling, no redness. Skin: No rashes, petechiae, lesions. Normal color per patient. Neuro: Normal Gait, Grossly intact. Psych: Appropriate for situation. Principal Diagnosis #S/p Port a Cath Placement #Fistula Thrombosis #ESRD Discharge Exam Constitutional: WD/WN, vitals as above, NAD, sitting up in bed, pleasant, conversing easily Respiratory: normal respiratory effort, lungs clear to auscultation, no wheeze, rales, rhonchi. Normal insp/exp effort, no accessory muscle use Cardiovascular: RRR, no murmur, no edema Vessels: no JVD or carotid bruit Chest: permacath in place Abdomen: normal bowel sounds, soft, nontender, no hepatosplenomegaly Musculoskeletal: no bruit on the fistula on left arm Neurologic: PERRL, EOMI, accommodation nl, no face palsy, no dysarthria CN's II- XI intact bilaterally and moves all extremities Psychiatric: A+Ox3, euthymic affect Discharge Data Allergies Allergy/AdvReac Type Severity Reaction Status Date / Time ranitidine Allergy Intermediate Rash Verified 12/20/24 11:44 lisinopril AdvReac Intermediate Cough Verified 12/20/24 11:44 Consultations 12/20/24 14:17 Consult Hospitalist Routine 12/20/24 14:19 Consult Nephrology Routine Procedures Performed Operation Date: 12/20/24 13:00 Actual Procedures p Perm Catheter Placement,Right Internal Jugular Approach,Ultrasound Localization of Right Internal Jugular Vein,Fluoroscopy for Positioning, Moderate Sedation [id number](Right) - Ulices Luu MD Ordered Studies 12/20/24 12:40 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 #S/p Port a Cath Placement #Fistula Thrombosis #ESRD -patient has thrombosed fistula, port a cath placed by vascular surgery on day of admission -vascular surgery requesting admission for monitoring overnight post dialysis -patient with slight pain at cath placement site otherwise relatively asymptomatic Patient underwent dialysis during the hospitalization without any issues. No medication changes were done at the time of the discharge. Patient to follow-up with PCP and vascular surgery as outpatient. Total Time Total Time Spent Total Time Spent (In Minutes): 34 Total Time Includes: Examination of the Patient, Discharge Planning, Medication Reconciliation, Communication With Other Providers and Other Discharge Plan Discharge Items Patient Disposition: Home - Self-Care Reason For Visit: ADMISSIONS Discharge Diagnosis: #S/p Port a Cath Placement #Fistula Thrombosis #ESRD Activity: Resume your previous activity Non-emergency contact: Primary Care Provider Call non-emergency contact if: you have any medication questions and your symptoms worsen Follow-up/Referrals: Shayla Milan MD [Primary Care Provider] - (Date & Time 12/27/2024 2:00 PM Provider: Shayla Milan MD [facility] ) Diet: Regular Addtl Attending Provider Instructions: Please follow-up with your primary care doctor as scheduled. Please continue dialysis as scheduled Pending Studies at Discharge: No Stand-Alone Forms: [facility] [employer] Interactive, Smoking Cessation Medications and DC Order Prescriptions: Continued Enbrel 50 mg/mL (1 mL) syringe 50 mg SQ WK Rx Instructions: Tuesday fluticasone propionate 50 mcg/actuation spray,suspension 2 sprays INTNAS QAM prednisone 5 mg tablet 5 mg PO DAILY metoprolol tartrate 25 mg Tablet 25 mg PO BID Qty: 60 0RF acetaminophen [Tylenol] 325 mg Tablet 325 - 975 mg PO Q6H PRN (Reason: Pain) Qty: 60 0RF Rx Instructions: takes pretty regular Trulicity 3 mg/0.5 mL pen injector 3 mg SUBCUT WK Qty: 2 0RF Patient Comments: pt states she normally takes on tuesdays took this tuesday01/25/24 Rx Instructions: Tuesday ondansetron HCl 4 mg Tablet 4 mg PO Q8H PRN (Reason: Nausea) doxylamine-dextromethorphan 6.25-15 mg/15 mL Solution 15 ml PO Q4H PRN (Reason: Cough) levocetirizine [Allergy Relief (levocetirizin)] 5 mg tablet 5 mg PO PM gabapentin 100 mg Capsule 100 mg PO TID diphenhydramine HCl [Allergy] 25 mg Tablet 25 mg PO HS PRN (Reason: Allergy Symptoms) cyanocobalamin (vitamin B-12) [Vitamin B-12] 1,000 mcg tablet 1,000 mcg PO QAM cholecalciferol (vitamin D3) [Vitamin D3] 50 mcg (2,000 unit) capsule 50 mcg PO DIRECTED Rx Instructions: Tuesday, Tuesday, Tuesday on dialysis days tramadol 50 mg Tablet 50 mg PO BID PRN (Reason: Severe Pain (Scale Score 7-10)) Patient Comments: severe pain guaifenesin [Mucinex] 1,200 mg Tablet Extended Release 12hr 1,200 mg PO BID Admission Data Admit Date/Time: 12/20/24 15:06 Attending Provider: Ivan Link Admit Provider: Amish Benavidez Primary Care Provider: Shayla Milan Other Providers: Holly Monk; Danika Butts I.; Byron Gonzalez; Wilfrido Voss; Fawn Diallo; Katie Ramos; Yadira Vela; Bradley Gan; Too Alcaraz; Rodolfo Moore; Hua Boothe; Stella Kilgore; Benitez Rebolledo; Eri Banegas; Nay Stroud; Camille Heck; Kat Urena; Alida Carreon I.; Tez Velázquez.; Damian Ayala; Halina Ramos; Lázaro Marshall; Ivan Link; Estevan Blas; Svetlana Roper; Evelyn Terry; Viral Aguilar; Guru Barros S; Shamar Nobles; Tez Maldonado; Elena Mesa; Amish Benavidez; Rita Martínez; Delma Julien; Delma Fischer; Grover Sharma; Deuce Mckeon; Monie Harris; Kaiden Kumar; Christina Daily; Leslie De La Garza; Jeanette Pena
[2024-12-21 13:10] VITALS: O2SAT 96
[2024-12-21 14:01] VITALS: BP 127/71
[2024-12-21 14:09] VITALS: PULSE 91; TEMP 98.4
[2024-12-21] MEDS ORDERED: CETIRIZINE HCL 10 MG TABLET PO SCH (21:00)
== END 2024-12-21 14:51 | disposition home or self-care (01) | DRG 314 ==
LOC: ASU 11:37 → 2N 15:06 → SUATTDRO 15:06 → INTOOBSV 15:06

== ENCOUNTER 2024-12-28 07:27 | Inpatient (IN) ==
--- NOTE | 2024-12-26 14:10 | Communication Note ---
Patient is scheduled for a "Perm Catheter Exchange" with Dr. Luu on 12/28/24. Procedure is in OR 12 with local with sedation with no anesthesia needed. Patient goes to dialysis Tue/Tue/Tuesday- due to dialysis status- [employer] test ordered for DOS
--- NOTE | 2024-12-28 07:42 | History & Physical Report ---
Date of Service December 28, 2024 Assessment & Plan (1) Hemodialysis catheter malfunction: Plan: Patient with malfunctioning permcath. Exchange of permcath recommended. I have discussed the risks options and benefits of the procedure with the patient. The patient understands the risks options and benefits and agrees to the procedure. History of Present Illness Chief Complaint: Malfunctioning permcath Primary Care Provider: Shayla Milan MD Patient is a 69yo female who had a permcath placed earlier this week. It is not running well. Recommending exchange with repositioning. Allergies Allergy/AdvReac Type Severity Reaction Status Date / Time ranitidine Allergy Intermediate Rash Verified 12/20/24 11:44 lisinopril AdvReac Intermediate Cough Verified 12/20/24 11:44 Home Medications Medication Instructions Recorded Confirmed Type etanercept 50 mg/mL (1 mL) 50 mg subcut WK 11/14/18 12/20/24 History subcutaneous syringe (Enbrel) fluticasone propionate 50 2 sprays intranasal QAM 11/14/18 12/20/24 History mcg/actuation nasal spray,suspension acetaminophen 325 mg tablet 325 - 975 mg (1 - 3 x 325 mg) PO 11/24/22 12/20/24 Rx (Tylenol) Q6H PRN Pain #60 tabs dulaglutide 3 mg/0.5 mL 3 mg (0.5 mL) subcut WK #2 mL 11/24/22 12/20/24 Rx subcutaneous pen injector (Trulicity) metoprolol tartrate 25 mg tablet 25 mg PO BID #60 tabs 01/06/23 12/20/24 Rx cholecalciferol (vitamin D3) 50 50 mcg PO DIRECTED 05/10/23 12/20/24 History mcg (2,000 unit) capsule (Vitamin D3) cyanocobalamin (vitamin B-12) 1,000 mcg PO QAM 05/10/23 12/20/24 History 1,000 mcg tablet (Vitamin B-12) doxylamine-dextromethorphan 6.25 15 ml PO Q4H PRN Cough 09/23/23 12/20/24 History mg-15 mg/15 mL oral solution levocetirizine 5 mg tablet 5 mg PO PM 09/23/23 12/20/24 History (Allergy Relief (levocetirizine)) ondansetron HCl 4 mg tablet 4 mg PO Q8H PRN Nausea 09/23/23 12/20/24 History gabapentin 100 mg capsule 100 mg PO TID 01/19/24 12/20/24 History guaifenesin 1,200 mg tablet, 1,200 mg PO BID 04/26/24 12/20/24 History extended release 12 hr (Mucinex) prednisone 5 mg tablet 5 mg PO DAILY 07/05/24 12/20/24 History diphenhydramine HCl 25 mg tablet 25 mg PO HS PRN Allergy Symptoms 12/20/24 12/20/24 History oxycodone 5 mg tablet 5 mg PO DAILY PRN pain #5 tabs 12/21/24 Rx Past Med/Surg History Problem List Hemodialysis AV fistula thrombosis Fainting Hypokalemia Acute hypoxic respiratory failure ESRD on hemodialysis Drowsy (Acute) Episode of unresponsiveness (Acute) Central venous catheter in place Dialysis AV fistula malfunction Hemodialysis catheter malfunction ESRD (end stage renal disease) on dialysis CKD (chronic kidney disease) stage 3, GFR 30-59 ml/min HD Tue-Tue-Tue [facility] Acute UTI (Acute) Acute hyperkalemia (Acute) Rhabdomyolysis (Acute) YAMILE (acute kidney injury) (Acute) HLD (hyperlipidemia) Anemia Status post laparoscopic cholecystectomy Acute calculous cholecystitis Encounter for pre-operative examination Severe sepsis Cholecystitis Abdominal pain (Acute) Rheumatoid arthritis Medical History Hyperlipidemia History of anemia AV fistula left arm ESRD (end stage renal disease) on dialysis dialysis [facility]--tue/tue/tue Sensorineural hearing loss (SNHL) of both ears History of COVID-19 (~2022) no symptoms, resolved Rheumatoid arthritis [facility] Diabetes mellitus, type 2 trulicity Sleep apnea CPAP--noncompliant Grade A3 albuminuria Hypertension Obesity Surgical History S/P right cataract extraction Status post creation of arteriovenous fistula 06/21/23 @ [facility]--LEFT arm History of surgery removal of central venous catheter 01/19/24 History of colonoscopy History of carpal tunnel surgery of right wrist Hx laparoscopic cholecystectomy (11/18/22) Laparoscopic Cholecystectomy, Lysis of Adhesions.(Not Applicable) - Wilmer Godinez, History of nephrectomy (~1971) rt S/P tonsillectomy and adenoidectomy S/P appendectomy Family History Other Cancer Diabetes Lung cancer Social History Smoking Status: Never smoker Second Hand Exposure: Yes (from mother); Do You Dip or Chew Tobacco: No; Hx Alcohol Use: No Hx Substance Use: No Preferred Language: [place] Communication Ability: Effective Visual Impairment: No Limitations Humane Agent Required: No Beliefs That Will Affect Care: None marital status: Single Current Living Situation: Alone Feels Safe at Home: Yes Assistive Devices: Cane and Walker Review of Systems All systems reviewed & are unremarkable except as noted in HPI & below Physical Exam Physical Exam: Constitutional: WD/WN, vitals as above Respirato ry: normal respiratory eff ort, lungs clear t o auscultation Car diovascular: R RR, no murmur, no edema Extremi ties: + AV fistula Gastrointestinal ( Abdomen): normal bowel s ounds, soft, nonte nder, no hepatosp lenomegaly Neurolo gic: CN's II-XI intact bilat erally and moves a ll extremities Psy chiatric: A +Ox3, euthymic aff ect
--- NOTE | 2024-12-28 08:13 | Pre Anesthesia Assessment ---
Date of Service December 28, 2024 Pre Sedation Assessment Cardiovascular RRR, no murmur, no edema Respiratory normal respiratory effort, lungs clear to auscultation Pre-Sedation Airway Assessment Smoking Status: Never smoker Hx Sleep Apnea: No Short, Thick Neck: No Thyromental Distance: > or= 3.5 Finger Breadths Oral Cavity: + WNL Mallampati Class: III ASA: ASA3 NPO Status Date of Last Intake of Fluids: 12/27/24 Time of Last Intake of Fluids: 00:00 Date of Last Intake of Solid Food: 12/27/24 Time of Last Intake of Solid Foods: 00:00 Procedure Planning Contraindications for Sedation: none Current Medications Reviewed: Yes Notes The planned sedation has been discussed with the patient. Informed Consent was obtained. I have identified the patient, determined the appropriateness of sedation and have assessed the patient immediately prior to the procedure. All medicine(s) and interventions are by my order.
[2024-12-28] MEDS: SODIUM CHLORIDE IV SCH (08:25)
[2024-12-28] MEDS: DEXTROSE IV SCH (08:25)
[2024-12-28] MEDS: CEFAZOLIN 2,000 MG/15 ML SYR IV SCH (08:30)
[2024-12-28] MEDS ORDERED: METOPROLOL TARTRATE 1 MG/ML VIAL IV ONE (08:40)
[2024-12-28] MEDS ORDERED: PHENYLEPHRINE 100MCG/ML 5ML SYR ONE (08:43)
[2024-12-28] MEDS: ONDANSETRON INJ 2 MG/ML 2 ML VIAL IV STA (09:00)
[2024-12-28] MEDS: OPTIRAY 320 125ml IV ONE (09:12)
--- NOTE | 2024-12-28 09:13 | Communication Note ---
Date of Service: December 28, 2024 Patient experieced severe sob and chest pain when moving to OR table. HR went up to 130's and was hypotensive. Anesthesia called. they were able to lower her heart rate to the one teens but still complained of SOB and chest pain. Labs sent. CTA of chest ordered. Hospitalist notified. CXR showed that she may have a small amount of increased vasculature. Patient more comfortable in RR but still with SOB on 10L with sat of 90 and still has some chest pain. Permcath exchanged canceled for now.
--- NOTE | 2024-12-28 09:23 | Communication Note ---
Date of Service: December 28, 2024 received a call from the sedation team asking for an emergent evaluation of their patient. Upon arrival pt was tachycardic/hypotensive (SBP 90s)/ and hyp oxic (85%) on 10 L face mask. Pt is c/o chest pain. pt was bought to the room by the sedation team where she suddenly had a staring episode, became hypoxic of 74% RA and tachycardic. Pt is now more alert per the team. I reviewed her history and ordered 5 mg metoprolol to slow her heart rate. Pt was in acute distress c/o difficulty breathing and chest pain. Chest pain is non reproducible and is located in the center of her chest without radiation. pt would like to sit on the side of the bed. Pt is CTA b/l. She is tachypneic. pt pulse feels regular. She was taken to PACU where her heart rate normalized. Chest xray showed some signs of failure but awaiting official read. [address] cannnot rule out anterior infarct. Blood glucose was elevated. Pt was given zofran for nausea. Pt was ordered labs and a stat CT PE protocol. Hospitalist were contacted by Dr cortez
[2024-12-28 09:25] LABS: Hematocrit (blood only) 38.2 % (37.0-47.0); Hemoglobin 11.6 g/dl (12.0-16.0); Mean Corpuscular Hemoglobin 31.6 pg (25.0-34.0); Mean Corpuscular Volume 104.1 fL (80.0-100.0); Platelet Count 268 K/uL (130-400); RDW Standard Deviation 50.6 fL (36.4-46.3); Red Blood Count 3.67 M/uL (4.20-5.40); White Blood Count 15.75 K/ul (4.8-10.8)
--- NOTE | 2024-12-28 09:31 | CT Scan Report ---
CT angio chest w con CLINICAL HISTORY: sob, chest pain, poss pe COMPARISON STUDY: None FINDINGS: There is motion artifact due to breathing. There are trace airway secretions. There is mild bronchial wall thickening consistent with bronchitis. There are a few scattered small patchy groundg lass opacities consistent with mild pneumonitis. No lobar consolidation or pleural effusion. No pneum othorax. There are retained esophageal contents, reduced esophageal motility versus gastroesophageal reflux. There is mild wall thickening at the mid to distal esophagus suggesting esophagitis. No enlar ged adenopathy. There are a few small bilateral subcentimeter thyroid nodules. No pericardial effusio n. No thoracic aortic dissection or aneurysm. No pulmonary embolism. There are diffuse thoracic spine degenerative changes. Right dialysis catheter tip is just above the cavoatrial junction. IMPRESSION: 1. No pulmonary embolism. 2. Mild pneumonitis. 3. Otherwise as described. ACT 112: Negative or not required by law. Electronically signed by: Wilmer Lawrence M.D. 12/28/2024 9:29 AM
--- NOTE | 2024-12-28 09:32 | XRay Report ---
XR chest 1V portable CLINICAL HISTORY: sob,chest pain COMPARISON STUDY: 03/20/2024 FINDINGS: Right dialysis catheter tip is in the SVC. Heart size and pulmonary vasculature are normal. No consolidation or pleural effusion seen. No pneumothorax. IMPRESSION: No acute findings. ACT 112: Negative or not required by law. Electronically signed by: Wilmer Lawrence M.D. 12/28/2024 9:30 AM
[2024-12-28 09:47] LABS: Alanine Aminotransferase 6.0 U/L (7-52); Albumin Globulin Ratio 0.9 (0.9-2); Albumin Level 3.1 gm/dl (3.4-5.0); Alkaline Phosphatase 81.0 U/L (34-104); Anion Gap 19.0 (3-11); Bilirubin,Total 0.2 mg/dl (0.2-1.0); Blood Urea Nitrogen 33.0 mg/dl (6-23); Calcium 8.7 mg/dl (8.6-10.3); Carbon Dioxide 18.0 mmol/L (21-32); Chloride 96.0 mmol/L (98-107); Creatine Kinase 49.0 U/L (26-192); Creatinine Clr Calc Pharmacy 16.9 ml/min; Globulin 3.4 gm/dl (2.5-4.0); Glucose 378.0 mg/dl (70-99(Fasting)); Potassium 3.8 mmol/L (3.5-5.1); Sodium 133.0 mmol/L (136-145); Total Protein 6.5 gm/dl (6.0-8.3)
--- NOTE | 2024-12-28 09:53 | History & Physical Report ---
Date of Service December 28, 2024 Assessment & Plan (1) Chest pain: (2) Acute hypoxic respiratory failure: (3) Pneumonitis: (4) Bronchitis: (5) Esophagitis: (6) ESRD on hemodialysis: (7) Hyperglycemia: (8) Diabetes mellitus, type 2: Plan Patient is a 69-year-old female with PMH significant for DM type II with diabetic peripheral angiopathy, HLD, TRISHA on CPAP, allergic rhinitis, HTN, ESRD on HD M/W/F, primary osteoarthritis of both knees, age-related osteoporosis and rheumatoid arthritis on chronic prednisone therapy whom our service was called to admit from the PACU by Dr. Luu due to chest pain and acute respiratory failure. Chest pain Acute respiratory failure with hypoxia Patient scheduled for PermCath exchange with Dr. Luu earlier this AM. Developed acute SOB and centralized chest pain when moving to the OR table for the procedure. -Became acutely hypoxic down to 75% SpO2 on RA, tachycardic with HR in the 140s and hypotensive with SBP in the 90s. -Was placed on 10L OxyMask with improvement of O2 saturation to 90%. -S/p 5mg IV Lopressor and 100mcg IV phenylephrine by anesthesia which improved her HR to the 80s and BP into the 110s/60s, respectively. Stat EKG with sinus tachycardia, no evidence of acute ST changes. Initial troponin only mildly elevated ~17. Stat CXR with no evidence of consolidation, pleural effusion or pneumothorax. Stat chest CTA without evidence of PE but did reveal findings consistent with b ronchitis, mild pneumonitis and possible esophagitis. Patient seen and evaluated shortly after 09:[address] Rebolledo. -Remained on 10L OxyMask, saturating around 92%. -BP 117/58, HR 81 and RR 16. Patient alert and oriented x 3. -Chest pain still present but improving compared to prior, appears comfortable. TTE ordered and pending. Follow troponin trend. No witnessed loco aspiration per nursing at bedside but will obtain RECEIVING TANK OPERATOR eval. Chest CTA did reveal retained esophageal contents, reduced esophageal motility vs GERD. -Consider GI consult once respiratory status and chest pain improve for EGD eval of possible esophagitis seen on chest CTA. Stat labs reviewed which revealed WBC 15K, negative Pro-Wyatt. Check respiratory BioFire panel. Empiric ABX coverage with IV Zosyn for now given findings c/w bronchitis, pneumonitis on chest CTA. Did receive IV Ancef earlier per protocol in anticipation for PermCath exchange. PermCath exchange canceled for now. Check ABG given significant O2 requirement. Wean O2 requirement as able pending ABG results. Scheduled Xopenex nebs for now. ESRD on HD M/W/F Follows with [facility], Dr. Harris. Had HD session yesterday. Does not appears grossly volume overloaded on exam. Appreciate routine nephro consult for HD management. Monitor renal function and avoid nephrotoxic agents as able. Hyperglycemia DMII with diabetic peripheral angiopathy Hemoglobin A1c 7% 1 day ago per outpatient chart review. On Trulicity RN POST PARTUM. BSG initially 174 during above episode. Repeat BSG jamie to 378. Anion gap 19, serum CO2 18. Check ABG as per above, UA also ordered. Cannot rule out DKA at this time. Can also see transient hyperglycemia with phenylephrine administration. Will cover with SSI protocol for now pending above tests, NPO for now. Appreciate glycemic pharmacy assistance with insulin management. Monitor BSG checks ACHS. Rheumatoid arthritis Continue chronic prednisone therapy. On Enbrel as well RN POST PARTUM. TRISHA Continue CPAP HS as able. DVT Prophylaxis: SCDs/TEDs only for now Code Status: FULL CODE PCP: Shayla Milan MD Disposition: Admit to PCU Patient seen in collaboration with Dr. Rebolledo. Please see addendum. I spent a total of 82 minutes coordinating, documenting, and providing care for this patient excluding time spent in the performance of separately billed services or time spent by another provider/QHP. This included personally reviewing all current laboratories and imaging studies, medical reconciliation, outpatient chart review and discussion with specialists. This chart was completed in part utilizing Speech Voice Recognition Software. Grammatical errors, random word insertions, pronoun errors, and incomplete sentences are an occasional consequence of this system due to software limitations, ambient noise, and hardware issues. Any formal questions or concerns about the content, text, or information contained within the body of this dictation should be directly addressed to the provider for clarification. History of Present Illness Chief Complaint: Acute respiratory failure, chest pain Primary Care Provider: Shayla Milan MD Patient is a 69-year-old female with PMH significant for DM type II with diabetic peripheral angiopathy, HLD, TRISHA on CPAP, allergic rhinitis, HTN, ESRD on HD M/W/F, primary osteoarthritis of both knees, age-related osteoporosis and rheumatoid arthritis on chronic prednisone therapy whom our service was called to admit from the PACU due to acute respiratory failure with hypoxia and chest pain. Patient presented to the medical center earlier this morning for PermCath exchange with Dr. Luu. Patient developed acute SOB and centralized chest pain when moving to the OR table for the procedure. Patient became acutely hypoxic down to 75% SpO2 on room air, tachycardic with HR in the 140s and hypotensive with SBP in the 90s. Was placed on 10L OxyMask with improvement of O2 saturation to 90%. Was administered 5mg IV Lopressor and 100mcg IV phenylephrine by anesthesia which improved her HR to the 80s and BP into the 110s/60s, respectively. Stat EKG with sinus tachycardia, no evidence of acute ST changes. Troponin ordered. Stat CXR with no evidence of consolidation, pleural effusion or pneumothorax. Stat chest CTA without evidence of PE but did reveal findings consistent with bronchitis, mild pneumonitis and possible esophagitis. No witnessed loco aspiration per nursing at bedside. PermCath exchange not performed. Patient seen and examined at bedside in the PACU with Dr. Rebolledo shortly after 09:00. Remained on 10L OxyMask, saturating around 92% SpO2. BP 117/58, HR 81 and RR 16. Patient alert and oriented x 3. Describes sensation of centralized chest pain and acute SOB when being moved over to the OR table. SOB improving with supplemental O2 support, patient more comfortable. Still with some centralized chest pain but intensity has greatly improved from prior. Has a chronic cough which feels unchanged from baseline, patient attributes this to her allergic rhinitis and chronic postnasal drip. Had HD session yesterday. Still makes urine. Had a bout of vomiting Tuesday but this has resolved, patient attributes this to something she ate. Nursing staff at bedside mentioned the patient was "staring off" for a few seconds when the above events occurred. Patient denies any prior seizure activity. When questioned regarding this "staring off" episode, patient admits it was difficult for her to communicate to nursing staff at that time due to the intensity of her chest pain and SOB. At no point did the patient lose consciousness. Allergies Allergy/AdvReac Type Severity Reaction Status Date / Time ranitidine Allergy Intermediate Rash Verified 12/28/24 07:51 lisinopril AdvReac Intermediate Cough Verified 12/28/24 07:51 cefazolin AdvReac Verified 12/28/24 16:59 Home Medications Medication Instructions Recorded Confirmed Type etanercept 50 mg/mL (1 mL) 50 mg subcut WK 11/14/18 12/28/24 History subcutaneous syringe (Enbrel) fluticasone propionate 50 2 sprays intranasal QAM PRN Nasal 11/14/18 12/28/24 History mcg/actuation nasal Congestion spray,suspension (Flonase Allergy Relief) acetaminophen 325 mg tablet 325 - 975 mg (1 - 3 x 325 mg) PO 11/24/22 12/28/24 Rx (Tylenol) Q6H PRN Pain #60 tabs dulaglutide 3 mg/0.5 mL 3 mg (0.5 mL) subcut WK #2 mL 11/24/22 12/28/24 Rx subcutaneous pen injector (Trulicity) metoprolol tartrate 25 mg tablet 25 mg PO BID #60 tabs 01/06/23 12/28/24 Rx cholecalciferol (vitamin D3) 50 50 mcg PO DIRECTED 05/10/23 12/28/24 History mcg (2,000 unit) capsule (Vitamin D3) cyanocobalamin (vitamin B-12) 1,000 mcg PO QAM 05/10/23 12/28/24 History 1,000 mcg tablet (Vitamin B-12) doxylamine-dextromethorphan 6.25 15 ml PO Q4H PRN Cough 09/23/23 12/28/24 History mg-15 mg/15 mL oral solution (Vicks NyQuil Cough) levocetirizine 5 mg tablet 5 mg PO PM 09/23/23 12/28/24 History (Allergy Relief (levocetirizine)) ondansetron HCl 4 mg tablet 4 mg PO Q8H PRN Nausea 09/23/23 12/28/24 History gabapentin 100 mg capsule 100 mg PO TID 01/19/24 12/28/24 History guaifenesin 1,200 mg tablet, 1,200 mg PO WK 04/26/24 12/28/24 History extended release 12 hr (Mucinex) prednisone 5 mg tablet 5 mg PO DAILY 07/05/24 12/28/24 History diphenhydramine HCl 25 mg tablet 25 mg PO HS PRN Allergy Symptoms 12/20/24 12/28/24 History (Benadryl Allergy) oxycodone 5 mg tablet 5 mg PO DAILY PRN pain #5 tabs 12/21/24 12/28/24 Rx Past Med/Surg History Problem List (Updated 12/28/24 @ 12:21 by Monie Harris MD, PhD) Leukocytosis Hyperglycemia Esophagitis Bronchitis Pneumonitis Chest pain Hemodialysis AV fistula thrombosis Fainting Hypokalemia Acute hypoxic respiratory failure ESRD on hemodialysis Drowsy (Acute) Episode of unresponsiveness (Acute) Central venous catheter in place Dialysis AV fistula malfunction Hemodialysis catheter malfunction ESRD (end stage renal disease) on dialysis CKD (chronic kidney disease) stage 3, GFR 30-59 ml/min HD Tue- [facility] Acute UTI (Acute) Acute hyperkalemia (Acute) Rhabdomyolysis (Acute) YAMILE (acute kidney injury) (Acute) HLD (hyperlipidemia) Anemia Status post laparoscopic cholecystectomy Acute calculous cholecystitis Encounter for pre-operative examination Severe sepsis Cholecystitis Abdominal pain (Acute) Rheumatoid arthritis Medical History Hyperlipidemia History of anemia AV fistula left arm ESRD (end stage renal disease) on dialysis dialysis [facility]--tue/ Sensorineural hearing loss (SNHL) of both ears History of COVID-19 (~2022) no symptoms, resolved Rheumatoid arthritis [facility] Diabetes mellitus, type 2 trulicity Sleep apnea CPAP--noncompliant Grade A3 albuminuria Hypertension Obesity Surgical History S/P right cataract extraction Status post creation of arteriovenous fistula 06/21/23 @ [facility]--LEFT arm History of surgery removal of central venous catheter 01/19/24 History of colonoscopy History of carpal tunnel surgery of right wrist Hx laparoscopic cholecystectomy (11/18/22) Laparoscopic Cholecystectomy, Lysis of Adhesions.(Not Applicable) - Wilmer Godinez, History of nephrectomy (~1971) rt S/P tonsillectomy and adenoidectomy S/P appendectomy Family History Other Cancer Diabetes Lung cancer Social History Smoking Status: Never smoker Second Hand Exposure: Yes; Do You Dip or Chew Tobacco: No; Tobacco Cessation Education Requested by Patient: No Hx Alcohol Use: Yes Alcohol type: wine Hx Substance Use: No Preferred Language: Latvian Communication Ability: Effective Visual Impairment: No Limitations Certified Medical Coder Required: No Beliefs That Will Affect Care: None marital status: Single Current Living Situation: Alone Current Living Situation Comment: brother close by per pt- assists with care if needed Other Information That Helps Us Care for You: No Feels Safe at Home: Yes Safety Concerns: Feels Safe At This Time Assistive Devices: Cane, Glasses and Oxygen - Continuous Assistive Devices Comment: pt does not like to wear- "can't stand it on my face" Review of Systems Review of Systems: At least ten systems reviewed and negative, except as noted in the HPI. Physical Exam Physical Exam: Please refer to Dr. Rebolledo's addendum for physical examination findings. Results & Data Results & Data Vital Signs (Past 12 Hours) Vital Signs Temp Pulse Pulse Resp BP Pulse Ox O2 Del Method 12/28/24 09:35 83 23 118/59 L 96 Oxymask 12/28/24 09:26 82 22 117/59 L 94 Oxymask 12/28/24 09:05 92 H 20 98/67 L 95 Oxymask 12/28/24 08:55 102 H 22 113/58 L 91 Oxymask 12/28/24 07:59 36.7 C 84 20 180/71 H 96 Room Air O2 Flow Rate 12/28/24 09:35 10 12/28/24 09:26 10 12/28/24 09:05 10 12/28/24 08:55 10 12/28/24 07:59 Laboratory Results Short CBC 12/28/24 Range/Units 08:59 WBC 15.75 H (4.8-10.8) K/ul Hgb 11.6 L (12.0-16.0) g/dl Hct 38.2 (37.0-47.0) % Plt Count 268 (130-400) K/uL BMP 12/28/24 12/28/24 07:33 09:03 Sodium 133 L Potassium 4.1 3.8 Chloride 96 L Carbon Dioxide 18 L BUN 33 H Creatinine 2.42 H Glucose 378 H* Calcium 8.7 Cardiac Enzymes 12/28/24 Range/Units 09:03 Total Creatine Kinase 49 (26-192) U/L Liver Function 12/28/24 Range/Units 09:03 Total Bilirubin 0.2 (0.2-1.0) mg/dl AST 15 (13-39) U/L ALT 6 L (7-52) U/L Alkaline Phosphatase 81 (34-104) U/L Albumin 3.1 L (3.4-5.0) gm/dl Diagnostic Findings Chest X-Ray 12/28/24 08:51 XR chest 1V portable CLINICAL HISTORY: sob,chest pain COMPARISON STUDY: 03/20/2024 FINDINGS: Right dialysis catheter tip is in the SVC. Heart size and pulmonary vasculature are normal. No consolidation or pleural effusion seen. No pneumothorax. IMPRESSION: No acute findings. ACT 112: Negative or not required by law. Electronically signed by: Wilmer Lawrence M.D. 12/28/2024 9:30 AM Chest CTA 12/28/24 08:52 CT angio chest w con CLINICAL HISTORY: sob, chest pain, poss pe COMPARISON STUDY: None FINDINGS: There is motion artifact due to breathing. There are trace airway secretions. There is mild bronchial wall thickening consistent with bronchitis. There are a few scattered small patchy groundglass opacities consistent with mild pneumonitis. No lobar consolidation or pleural effusion. No pneumothorax. There are retained esophageal contents, reduced esophageal motility versus gastroesophageal reflux. There is mild wall thickening at the mid to distal esophagus suggesting esophagitis. No enlarged adenopathy. There are a few small bilateral subcentimeter thyroid nodules. No pericardial effusion. No thoracic aortic dissection or aneurysm. No pulmonary embolism. There are diffuse thoracic spine degenerative changes. Right dialysis catheter tip is just above the cavoatrial junction. IMPRESSION: 1. No pulmonary embolism. 2. Mild pneumonitis. 3. Otherwise as described. ACT 112: Negative or not required by law. Electronically signed by: Wilmer Lawrence M.D. 12/28/2024 9:29 AM Medications Administered Discontinued Medications Dextrose/Sodium Chloride () 1,000 mls @ 10 mls/hr IV .Q24H LEV Stop: 12/29/24 05:59 Last Infusion: 12/28/24 08:28 Dose: Infused Documented By: Admin: 12/28/24 08:25 Dose: 10 mls/hr Documented By: LOREN Ioversol (Optiray 320 125ml) 112 ml IV ONCE ONE Stop: 12/28/24 09:12 Last Admin: 12/28/24 09:12 Dose: 112 ml Documented By: BASSAM Ondansetron HCl (Ondansetron Inj 2 Mg/Ml 2 Ml Vial) 4 mg IV NOW STA Stop: 12/28/24 09:00 Last Admin: 12/28/24 09:00 Dose: 4 mg Documented By: MARYANNE Code Status & VTE Plan VTE Prophylaxis Plan VTE Prophylaxis will be ordered: Yes Supervising Physician Co-Signing Physician Notes Patient is a 69-year-old female with history of end-stage renal disease on dialysis, diabetes mellitus, TRISHA and other medical problems was electively scheduled for permanent cath exchange today. After receiving preop Ancef, patient developed significant shortness of breath, tachycardia and was noted to be " staring" per staff. She was found to be hypoxic requiring OxyMask. Procedure was aborted and patient was admitted for further evaluation. Patient admits to have chronic cough which she attributes to postnasal drip. She also had some chest tightness which improved. Echo showed no wall motion abnormality. Chest CTA showed no PE, findings suggestive of mild pneumonitis. Please review HPI for complete details of presentation. I personally reviewed blood work and imaging studies. Physical Exam: Vitals signs as noted above General Appearance: Overweight, no apparent distress Head: normocephalic, Atraumatic Eyes: normal inspection, EOMI Neck: supple, Trachea midline Respiratory/Chest: Normal breath sounds, CTA, No accessory muscle use,+ right- sided dialysis catheter Cardiovascular: S1, S2, No murmur Abdomen/GI:Soft, Non tender, Bowel sounds present Extremities/Musculoskeletal:normal inspection, trace pedal edema Neurologic/Psych:AAOX3, grossly no focal neurological deficits Skin: normal color, warm Acute respiratory failure with hypoxia Likely aspiration pneumonitis CTA showed no PE Empirically on Zosyn Aspiration precautions Requested speech therapy evaluation Wean off of supplemental oxygen as able Suspected adverse reaction to Ancef Cannot rule out seizure Will obtain EEG Monitor for any seizure-like activity Will consider further studies if needed ESRD Permanent catheter exchange postponed to Tuesday Appreciate nephrology, vascular surgery help Mild troponin elevation likely demand ischemia in setting of hypoxia, end-stage renal disease Echo showed no wall motion abnormality Monitor I personally interviewed and examined the patient at bedside. I have reviewed the advanced practitioner's documentation on the date of service referred in note and agree with plan. Patient's care is coordinated with Evelyn Terry PA-C. Please refer to the documentation above for details of patient's presentation and for discussion of other issues. I spent a total [id number] coordinating, documenting, and providing care for this patient excluding time spent in the performance of separately billed services or time spent by another provider/QHP.
[2024-12-28] MEDS ORDERED: PIPERACILLIN/TAZOBACTAM 4.5 GM/100 ML BAG IV STA (09:56)
[2024-12-28 10:11] LABS: Immature Granulocytes # (auto) 1.29 K/uL (0.01-0.20); Immature Granulocytes % (auto) 8.2 %
[2024-12-28] MEDS: LEVALBUTEROL HCL 0.63 MG/3 ML NEB NEB SCH ×2 (10:34→15:18)
[2024-12-28] MEDS ORDERED: GLUCAGON FOR INJ 1 MG VIAL SQ PRN (10:47)
[2024-12-28] MEDS ORDERED: CARBOHYDRATES FOR HYPOGLYCEMIA PO PRN (10:47)
[2024-12-28] MEDS ORDERED: GLUCOSE 10 TAB/TUBE PO PRN (10:47)
[2024-12-28] MEDS ORDERED: PHARMACY GLYCEMIC MGMT CONSULT PRN (10:47)
[2024-12-28] MEDS ORDERED: GLUCOSE 40% GEL 15 GM TUBE PO PRN (10:47)
[2024-12-28] MEDS ORDERED: DEXTROSE 50% 50 ML SYRINGE IV PRN (10:47)
[2024-12-28 11:01] LABS: iSTAT Art Bld Gas Base Excess -6.0 mmol/L (-9-1.8); iSTAT Art Bld Gas pCO2 Correct 37 mmHg (35-46); iSTAT Art Bld Gas pH Corrected 7.336 (7.35-7.45); iSTAT Arterial Blood Gas pO2 C 113
[2024-12-28] MEDS ORDERED: MAGNESIUM HYDROXIDE SUSP 30 ML UDC PO PRN (11:02)
[2024-12-28] MEDS ORDERED: FLUTICASONE PROPIONATE NA SPR 16 GM BTL PRN (11:02)
[2024-12-28] MEDS ORDERED: ONDANSETRON INJ 2 MG/ML 2 ML VIAL IV PRN (11:02)
[2024-12-28] MEDS ORDERED: POLYETHYLENE (MIRALAX) 17 GM PACK PO PRN (11:02)
--- NOTE | 2024-12-28 11:10 | Communication Note ---
Date of Service: December 28, 2024 Pt rescheduled for permcath exchange on Sunday 12/31 in OR. Pt with significant leukocytosis on CBC and permcath present, will order blood cultures to be done before her exchange on Tuesday.
[2024-12-28] MEDS ORDERED: INSULIN ASPART PER UNIT CHARGE SC SCH (11:30)
[2024-12-28] MEDS ORDERED: POTASSIUM CHLORIDE CRTAB 20 MEQ TABCR PO STA (11:38)
--- NOTE | 2024-12-28 11:43 | Nephrology Consultation ---
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 relation to cefazolin though had it w/o issue Apr 2024 here and 10/2023 and keflex 12/2022 at [facility] [place] -continue supportive care >>staring spell reported today >> ? another eval for seizure as she had in March -have asked pharmacy to read more on cefazolin >> concern that large dose for renal failure may have lowered seizure threshold > primary service aware and will evaluate; surgery aware; pharmacy aware and will annotate >> she could have in future but would want to avoid high dose History of Present Illness Reason for Consultation: ESRD on MWF HD Requesting Physician: Dr Rebolledo Attending Physician: Benitez Rebolledo MD History of Present Illness 69 y/o F whom I'm asked to see for ESRD on MWF HD was admitted this am after developing acute dyspnea, chest pain while transferring to OR table for what was to be OP tunnelled dialysis catheter exchange for nonfunctioning dialysis catheter. PMH includes DM type II, RA on chronic immunosuppression, diabetic peripheral angiopathy, ESRD on MWF dialysis, ongenital absence of right kidney, HTN, TRISHA on CPAP, osteoporosis, HL, allergic rhinitis, chronic ambulatory dysfunction/walker dependent. Her last dialysis was 12/26 (ran poorly). Pt had similar episode to one this am at Mar 2024 admission. in surgical suite, had HR to 130s and anesthesia evaluated her >> her bp was 90s systolic and hypoxic to 85% on 10L VM. she c/o chest pain and was noted to have a staring episode; also had acute distress w/ breathing and chest pain per report. HR normalized. TDC exchange rescheduled to 12/31. concern w/ WBC elevation today and blood cultures ordered. concern for pneumonitis on CT scan and was started on zosyn. Pt seen late AM today> on 2L NC; no worsening dyspnea, no cough; slight sore throat. no edema, no n/v; no diarrhea; no change in chronic joint pain. no confusion or exhaustion. no rash or f/c. Allergies Allergy/AdvReac Type Severity Reaction Status Date / Time ranitidine Allergy Intermediate Rash Verified 12/28/24 07:51 lisinopril AdvReac Intermediate Cough Verified 12/28/24 07:51 cefazolin AdvReac Verified 12/28/24 16:59 Home Medications Medication Instructions Recorded Confirmed Type etanercept 50 mg/mL (1 mL) 50 mg subcut WK 11/14/18 12/28/24 History subcutaneous syringe (Enbrel) fluticasone propionate 50 2 sprays intranasal QAM PRN Nasal 11/14/18 12/28/24 History mcg/actuation nasal Congestion spray,suspension (Flonase Allergy Relief) acetaminophen 325 mg tablet 325 - 975 mg (1 - 3 x 325 mg) PO 11/24/22 12/28/24 Rx (Tylenol) Q6H PRN Pain #60 tabs dulaglutide 3 mg/0.5 mL 3 mg (0.5 mL) subcut WK #2 mL 11/24/22 12/28/24 Rx subcutaneous pen injector (Trulicity) metoprolol tartrate 25 mg tablet 25 mg PO BID #60 tabs 01/06/23 12/28/24 Rx cholecalciferol (vitamin D3) 50 50 mcg PO DIRECTED 05/10/23 12/28/24 History mcg (2,000 unit) capsule (Vitamin D3) cyanocobalamin (vitamin B-12) 1,000 mcg PO QAM 05/10/23 12/28/24 History 1,000 mcg tablet (Vitamin B-12) doxylamine-dextromethorphan 6.25 15 ml PO Q4H PRN Cough 09/23/23 12/28/24 History mg-15 mg/15 mL oral solution (Vicks NyQuil Cough) levocetirizine 5 mg tablet 5 mg PO PM 09/23/23 12/28/24 History (Allergy Relief (levocetirizine)) ondansetron HCl 4 mg tablet 4 mg PO Q8H PRN Nausea 09/23/23 12/28/24 History gabapentin 100 mg capsule 100 mg PO TID 01/19/24 12/28/24 History guaifenesin 1,200 mg tablet, 1,200 mg PO WK 04/26/24 12/28/24 History extended release 12 hr (Mucinex) prednisone 5 mg tablet 5 mg PO DAILY 07/05/24 12/28/24 History diphenhydramine HCl 25 mg tablet 25 mg PO HS PRN Allergy Symptoms 12/20/24 12/28/24 History (Benadryl Allergy) oxycodone 5 mg tablet 5 mg PO DAILY PRN pain #5 tabs 12/21/24 12/28/24 Rx Patient History Medical History Hyperlipidemia History of anemia AV fistula left arm ESRD (end stage renal disease) on dialysis dialysis [facility] in [place]--[place]/t[place]/f[place] Sensorineural hearing loss (SNHL) of both ears History of COVID-19 (~2022) no symptoms, resolved Rheumatoid arthritis [facility] Diabetes mellitus, type 2 trulicity Sleep apnea CPAP--noncompliant Grade A3 albuminuria Hypertension Obesity Surgical History S/P right cataract extraction Status post creation of arteriovenous fistula 06/21/23 @ [facility]--LEFT arm History of surgery removal of central venous catheter 01/19/24 History of colonoscopy History of carpal tunnel surgery of right wrist Hx laparoscopic cholecystectomy (11/18/22) Laparoscopic Cholecystectomy, Lysis of Adhesions.(Not Applicable) - Wilmer Godinez, History of nephrectomy (~1971) rt S/P tonsillectomy and adenoidectomy S/P appendectomy Family History Other Cancer Diabetes Lung cancer Social History Smoking Status: Never smoker Second Hand Exposure: Yes; Do You Dip or Chew Tobacco: No; Tobacco Cessation Education Requested by Patient: No Hx Alcohol Use: Yes Alcohol type: wine Hx Substance Use: No Preferred Language: Maltese Communication Ability: Effective Visual Impairment: No Limitations Buffet Manager Required: No Beliefs That Will Affect Care: None marital status: Single Current Living Situation: Alone Current Living Situation Comment: brother close by per pt- assists with care if needed Other Information That Helps Us Care for You: No Feels Safe at Home: Yes Safety Concerns: Feels Safe At This Time Assistive Devices: Cane, Glasses and Oxygen - Continuous Assistive Devices Comment: pt does not like to wear- "can't stand it on my face" Review of Systems 2 Review of Systems: All systems reviewed & are unremarkable except as noted in HPI & below Physical Exam 2 Constitutional: well developed (sitting on side of bed on 2L NC) and well nourished; no acute distress Eyes: EOM intact bilaterally ENMT: Mouth: + muffled voice (hoarse as at baseline) and + dry oral mucous membranes Respiratory: normal respiratory effort Auscultation: + diminished lung sounds Gastrointestinal (Abdomen): Inspection/Auscultation: normal bowel sounds P ercussion/Palpation: abdomen soft; abdomen nontender Musculoskeletal: Extremities: strength 5/5 throughout Skin: no rashes, warm and dry Neurologic: grant, fluent speech, no tremor Results & Data Vital Signs (Past 12 Hours) Vital Signs Temp Pulse Pulse Resp BP Pulse Ox O2 Del Method 12/28/24 11:02 36.3 C L 74 18 129/76 99 Room Air 12/28/24 10:35 18 97 Nasal Cannula 12/28/24 10:15 36.4 C L 77 16 110/65 94 Nasal Cannula 12/28/24 09:45 36.3 C L 83 81 H 128/87 99 Oxymask 12/28/24 09:35 83 23 118/59 L 96 Oxymask 12/28/24 09:26 82 22 117/59 L 94 Oxymask 12/28/24 09:05 92 H 20 98/67 L 95 Oxymask 12/28/24 08:55 102 H 22 113/58 L 91 Oxymask 12/28/24 07:59 36.7 C 84 20 180/71 H 96 Room Air O2 Flow Rate 12/28/24 11:02 2 12/28/24 10:35 1.5 12/28/24 10:15 2 12/28/24 09:45 10 12/28/24 09:35 10 12/28/24 09:26 10 12/28/24 09:05 10 12/28/24 08:55 10 12/28/24 07:59 Laboratory Results 12/28/24 08:59 12/28/24 09:[address] PE protocol FINDINGS: There is motion artifact due to breathing. There are trace airway secretions. There is mild bronchial wall thickening consistent with bronchitis. There are a few scattered small patchy groundglass opacities consistent with mild pneumonitis. No lobar consolidation or pleural effusion. No pneumothorax. There are retained esophageal contents, reduced esophageal motility versus gastroesophageal reflux. There is mild wall thickening at the mid to distal esophagus suggesting esophagitis. No enlarged adenopathy. There are a few small bilateral subcentimeter thyroid nodules. No pericardial effusion. No thoracic aortic dissection or aneurysm. No pulmonary embolism. There are diffuse thoracic spine degenerative changes. Right dialysis catheter tip is just above the cavoatrial junction. IMPRESSION: 1. No pulmonary embolism. 2. Mild pneumonitis. 3. Otherwise as described. No acute ff on CXR
[2024-12-28] MEDS: INSULIN ASPART PER UNIT CHARGE SC SCH (14:06)
[2024-12-28] MEDS: INSULIN HUMAN REGULAR PER UNIT 5 UNITS in SYRINGE 4.95 ML IV ONE (14:06)
[2024-12-28] MEDS: POTASSIUM CHLORIDE CRTAB 20 MEQ TABCR PO STA (14:16)
[2024-12-28] MEDS: GABAPENTIN 100 MG CAP PO SCH (14:16)
--- NOTE | 2024-12-28 14:16 | Pharmacy Report ---
Pharmacy Glycemic Short Note 2 - Date of Service December 28, 2024 - Glycemic Short BSG Results (Last 24 hours): 12/28/24 12/28/24 12/28/24 07:45 08:46 08:47 Glucose POC Glucose 174 H 316 H* 326 H* 12/28/24 12/28/24 12/28/24 09:03 11:05 11:06 Glucose 378 H* POC Glucose 503 H* 467 H* OUTPATIENT ANTIDIABETIC REGIMEN: * trulicity 3 mg SQ weekly ASSESSMENT: * 69 year old scheduled for perm cath exchange, however admitted from PACU d/t chest pain/acute respiratory failure. Type 2 diabetic ESRD on HD - BSG >500 this morning. Discussed with provider and do not feel like labs reflective of DKA therefore plan to trial SQ insulin. Will consider starting insulin drip if blood sugars remain elevated after trialing SQ * After initial SQ insulin dose and one time IV insulin dose - BSGs trending down ~279 mg/dl - will continue with SQ insulin for now PLAN FOR INPATIENT GLYCEMIC CONTROL: * Hold outpatient oral diabetes medications * Basal insulin * Lantus 0-10 units SQ BID * Bolus insulin * NovoLog per scale ACHS or Q6hrs while NPO * Goal Range: Low 110 mg/dL - High 160 mg/dL * Correction Factor: 35 mg/dL/unit * Nutritional / Prandial insulin per carb ratio of 1 unit per 11 grams CHO consumed
[2024-12-28] MEDS: PIPERACILLIN/TAZOBACTAM 4.5 GM/100 ML BAG IV ONE (15:36)
[2024-12-28] MEDS: ACETAMINOPHEN 325 MG TAB PO PRN (15:43)
[2024-12-28 16:51] LABS: Chlamydia pneumoniae PCR Not Detected (NotDetected); Coronavirus 229E PCR Not Detected (NotDetected); Coronavirus CoV-2 (COVID19)PCR Not Detected (NotDetected); Coronavirus HKU1 PCR Not Detected (NotDetected); Coronavirus NL63 PCR Not Detected (NotDetected); Coronavirus OC43PCR Not Detected (NotDetected); Human Metapneumovirus PCR Not Detected (NotDetected); Parainfluenza Virus 1 PCR Not Detected (NotDetected); Parainfluenza Virus 2 PCR Not Detected (NotDetected); Parainfluenza Virus 3 PCR Not Detected (NotDetected); Parainfluenza Virus 4 PCR Not Detected (NotDetected); Respiratory Syncytial VirusPCR Not Detected (NotDetected); Rhinovirus/Enterovirus PCR Not Detected (NotDetected)
[2024-12-28] MEDS ORDERED: LANTUS PER UNIT CHARGE SC SCH (18:00)
[2024-12-28] MEDS: HEPARIN SOD (PORCINE) 5,000 UNITS/ML VIAL ONE (19:22)
[2024-12-28] MEDS: MIDAZOLAM HCL 1 MG/ML 2ML VIAL ONE (19:22)
[2024-12-28] MEDS: LIDOCAINE 1% LOCAL 20 ML VIAL ONE (19:22)
[2024-12-28] MEDS: ONDANSETRON INJ 2 MG/ML 2 ML VIAL ONE ×2 (19:23→19:24)
[2024-12-28] MEDS: HEPARIN SOD 5,000 UNIT/0.5 ML VIAL SQ SCH (21:03)
[2024-12-28] MEDS: METOPROLOL TARTRATE 25 MG TAB PO SCH (21:05)
[2024-12-28] MEDS: CETIRIZINE HCL 10 MG TABLET PO SCH (21:05)
[2024-12-28] MEDS: LANTUS PER UNIT CHARGE SC SCH (21:06)
[2024-12-28] MEDS: PIPERACILLIN/TAZOBACTAM 4.5 GM/100 ML BAG IV SCH (23:55)
[2024-12-29] MEDS: INSULIN ASPART PER UNIT CHARGE SC SCH (00:09)
[2024-12-29 06:50] LABS: Appearance Urine Cloudy (Clear); Glucose Urine UA Negative (Negative)
[2024-12-29 06:54] LABS: Epithelial Cell Urine >20 /hpf (0-2)
[2024-12-29 07:27] LABS: Hematocrit (blood only) 27.5 % (37.0-47.0); Hemoglobin 8.8 g/dl (12.0-16.0); Immature Granulocytes # (auto) 0.18 K/uL (0.01-0.20); Immature Granulocytes % (auto) 1.8 %; Mean Corpuscular Hemoglobin 32.5 pg (25.0-34.0); Mean Corpuscular Volume 101.5 fL (80.0-100.0); Platelet Count 209 K/uL (130-400); RDW Standard Deviation 49.9 fL (36.4-46.3); Red Blood Count 2.71 M/uL (4.20-5.40); White Blood Count 10.11 K/ul (4.8-10.8)
[2024-12-29 07:55] LABS: Alanine Aminotransferase 3.0 U/L (7-52); Albumin Globulin Ratio 1.0 (0.9-2); Albumin Level 3.1 gm/dl (3.4-5.0); Alkaline Phosphatase 58.0 U/L (34-104); Anion Gap 13.0 (3-11); Bilirubin,Total 0.2 mg/dl (0.2-1.0); Blood Urea Nitrogen 49.0 mg/dl (6-23); Calcium 8.5 mg/dl (8.6-10.3); Carbon Dioxide 22.0 mmol/L (21-32); Chloride 95.0 mmol/L (98-107); Creatinine Clr Calc Pharmacy 10.0 ml/min; Globulin 3.1 gm/dl (2.5-4.0); Glucose 102.0 mg/dl (70-99(Fasting)); Magnesium 1.6 mg/dl (1.7-2.4); Potassium 4.9 mmol/L (3.5-5.1); Sodium 130.0 mmol/L (136-145); Total Protein 6.2 gm/dl (6.0-8.3)
[2024-12-29] MEDS: CYANOCOBALAMIN (B-12) 500 MCG TABLET PO SCH (08:32)
[2024-12-29] MEDS: MAGNESIUM SULFATE / D5W 1 GM/100 ML BAG IV ONE (09:41)
--- NOTE | 2024-12-29 15:00 | Nephrology Progress Note ---
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 relation to cefazolin though had it w/o issue Apr 2024 here and 10/2023 and keflex 12/2022 at [facility] [place] -continue supportive care >>staring spell reported today >> ? another eval for seizure as she had in March -have asked pharmacy to read more on cefazolin >> concern that large dose for renal failure may have lowered seizure threshold > primary service aware and will evaluate; surgery aware; pharmacy aware and will annotate >> she could have in future but would want to avoid high dose Admission and Anticipated Discharge Date Admission Date: December 28, 2024 Subjective Sitting out comfortably in chair, having Breakfast No SOB, on Room air No Other complains Results & Data Vital Signs (Past 12 Hours) Vital Signs Temp Pulse Pulse Resp BP Pulse Ox O2 Del Method 12/29/24 14:45 77 16 98 Room Air 12/29/24 11:11 70 16 96 Room Air 12/29/24 11:06 36.8 C 66 18 121/76 98 Room Air 12/29/24 09:00 67 12/29/24 09:00 Room Air 12/29/24 07:21 70 18 97 Room Air 12/29/24 07:18 36.5 C 70 18 125/73 97 Room Air 12/29/24 03:15 36.6 C 76 17 113/70 96 Room Air Laboratory Results 12/29/24 07:10 12/29/24 07:10
--- NOTE | 2024-12-29 16:21 | Hospitalist Progress Note ---
Date of Service December 29, 2024 Assessment & Plan (1) Pneumonitis: (2) Acute hypoxic respiratory failure: (3) ESRD on hemodialysis: Plan Acute respiratory failure with hypoxia Likely aspiration pneumonitis --CTA:No pulmonary embolism. Mild pneumonitis.Otherwise as described. --Biofire: Negative -- Blood cultures negative --Normal procalcitonin --Nasal MRSA negative Empirically on Zosyn Aspiration precautions Continue dietary restrictions per speech therapy Hypoxia resolved Will likely transition to oral antibiotics in 1-2 days Suspected adverse reaction to Ancef Patient had similar episode on prior admission: EEG showed mild intermittent background slowing suggestive of mild nonspecific encephalopathy Will avoid cephalosporins Monitor for any seizure activity AV fistula malfunction--POA ESRD No indication for urgent dialysis currently Monitor volume status Nephrology following Permanent catheter exchange postponed to Tuesday Appreciate nephrology, vascular surgery help Avoid nephrotoxic agents as able Mild troponin elevation likely demand ischemia in setting of hypoxia, end-stage renal disease Echo showed no wall motion abnormality Monitor Diabetes mellitus type 2 with peripheral angiopathy Hyperglycemia Last HbA1c 7 Continue insulin per protocol Appreciate glycemic pharmacist help Monitor blood glucose levels Rheumatoid arthritis Continue chronic prednisone On Enbrel prior to admission TRISHA Continue CPAP at bedtime DVT prophylaxis Heparin SQ CODE STATUS Full code Admission and Anticipated Discharge Date Admission Date: December 28, 2024 Subjective Patient is seen and examined at bedside States having minimal cough with expectoration but otherwise feels well Denies any chest pain, dyspnea, nausea, vomiting, abdominal pain Weaned off of supplemental oxygen Review of Systems Review of Systems: All systems reviewed & are unremarkable except as noted in Subjective Physical Exam Physical Exam: Physical Exam: Vitals signs as noted above General Appearance: Overweight, no apparent distress Head: normocephalic, Atraumatic Eyes: normal inspection, EOMI Neck: supple, Trachea midline Respiratory/Chest: Normal breath sounds, CTA, No accessory muscle use,+ right- sided dialysis catheter Cardiovascular: S1, S2, No murmur Abdomen/GI:Soft, Non tender, Bowel sounds present Extremities/Musculoskeletal:normal inspection, trace pedal edema Neurologic/Psych:AAOX3, grossly no focal neurological deficits Skin: normal color, warm Results & Data Results & Data Vital Signs (Past 12 Hours) Vital Signs Temp Pulse Pulse Resp BP Pulse Ox O2 Del Method 12/29/24 15:55 36.9 C 78 18 119/69 96 Room Air 12/29/24 14:45 77 16 98 Room Air 12/29/24 11:11 70 16 96 Room Air 12/29/24 11:06 36.8 C 66 18 121/76 98 Room Air 12/29/24 09:00 67 12/29/24 09:00 Room Air 12/29/24 07:21 70 18 97 Room Air 12/29/24 07:18 36.5 C 70 18 125/73 97 Room Air Laboratory Results Short CBC 12/29/24 Range/Units 07:10 WBC 10.11 (4.8-10.8) K/ul Hgb 8.8 L (12.0-16.0) g/dl Hct 27.5 L (37.0-47.0) % Plt Count 209 (130-400) K/uL BMP 12/29/24 07:10 Sodium 130 L Potassium 4.9 D Chloride 95 L Carbon Dioxide 22 BUN 49 H Creatinine 4.05 H D Glucose 102 H Calcium 8.5 L Liver Function 12/29/24 Range/Units 07:10 Total Bilirubin 0.2 (0.2-1.0) mg/dl AST 12 L (13-39) U/L ALT 3 L (7-52) U/L Alkaline Phosphatase 58 (34-104) U/L Albumin 3.1 L (3.4-5.0) gm/dl Urine 12/28/24 Range/Units 23:32 Urine Color Yellow Urine Appearance Cloudy A (Clear) Urine pH 5.0 (4.5-7.5) Ur Specific Dubois <= 1.005 (1.000-1.030) Urine Protein 2+ H (Negative) Urine Glucose (UA) Negative (Negative)
[2024-12-29] MEDS: MAGNESIUM CHLORIDE W/CALCIUM 64MG DELAYED REL TAB PO SCH (21:18)
[2024-12-30 09:49] LABS: Anion Gap 15.0 (3-11); Blood Urea Nitrogen 67.0 mg/dl (6-23); Calcium 8.8 mg/dl (8.6-10.3); Carbon Dioxide 21.0 mmol/L (21-32); Chloride 95.0 mmol/L (98-107); Creatinine Clr Calc Pharmacy 8.6 ml/min; Glucose 150.0 mg/dl (70-99(Fasting)); Magnesium 1.9 mg/dl (1.7-2.4); Potassium 5.0 mmol/L (3.5-5.1); Sodium 131.0 mmol/L (136-145); Thyroid Stimulating Hormone 0.362 uIu/ml (0.300-4.500)
[2024-12-30] MEDS ORDERED: LEVALBUTEROL HCL 0.63 MG/3 ML NEB NEB PRN (10:16)
--- NOTE | 2024-12-30 12:04 | Hospitalist Progress Note ---
Date of Service December 30, 2024 Assessment & Plan (1) Pneumonitis: (2) Acute hypoxic respiratory failure: (3) ESRD on hemodialysis: Plan Acute respiratory failure with hypoxia Likely aspiration pneumonitis --CTA:No pulmonary embolism. Mild pneumonitis.Otherwise as described. --Biofire: Negative -- Blood cultures negative --Normal procalcitonin --Nasal MRSA negative Continue IV Zosyn for now Aspiration precautions Continue dietary restrictions per speech therapy Hypoxia resolved Plan to transition to oral antibiotics after procedure tomorrow Suspected adverse reaction to Ancef Patient had similar episode on prior admission: EEG showed mild intermittent background slowing suggestive of mild nonspecific encephalopathy Will avoid cephalosporins Monitor for any seizure activity AV fistula malfunction--POA ESRD No indication for urgent dialysis currently Monitor volume status Nephrology following Permanent catheter exchange tomorrow Appreciate nephrology, vascular surgery help Avoid nephrotoxic agents as able N.p.o. after midnight Mild troponin elevation likely demand ischemia in setting of hypoxia, end-stage renal disease Echo showed no wall motion abnormality Monitor Denies any chest pain, dyspnea today Diabetes mellitus type 2 with peripheral angiopathy Presented with significant hyperglycemia due to missing insulin dose for procedure Last HbA1c 7 Continue insulin per protocol Appreciate glycemic pharmacist help Monitor blood glucose levels Rheumatoid arthritis Continue chronic prednisone On Enbrel prior to admission TRISHA Continue CPAP at bedtime DVT prophylaxis Heparin SQ CODE STATUS Full code Disposition Home with home health Admission and Anticipated Discharge Date Admission Date: December 28, 2024 Subjective Patient is seen and examined at bedside Cough continues to improve Saturating well on room air Dyspnea resolved No new complaints Denies any chest pain, nausea, vomiting, abdominal pain, dizziness Review of Systems Review of Systems: All systems reviewed & are unremarkable except as noted in Subjective Physical Exam Physical Exam: Physical Exam: Vitals signs as noted above General Appearance: Overweight, no apparent distress Head: normocephalic, Atraumatic Eyes: normal inspection, EOMI Neck: supple, Trachea midline Respiratory/Chest: Normal breath sounds, CTA, No accessory muscle use,+ right- sided dialysis catheter Cardiovascular: S1, S2, No murmur Abdomen/GI:Soft, Non tender, Bowel sounds present Extremities/Musculoskeletal:normal inspection, trace pedal edema Neurologic/Psych:AAOX3, grossly no focal neurological deficits Skin: normal color, warm Results & Data Results & Data Vital Signs (Past 12 Hours) Vital Signs Temp Pulse Pulse Resp BP Pulse Ox O2 Del Method 12/30/24 11:25 36.6 C 67 18 123/76 98 Room Air 12/30/24 07:33 36.4 C L 70 16 113/62 97 Room Air 12/30/24 07:09 77 16 95 Room Air 12/30/24 03:30 36.4 C L 74 20 145/76 H 96 Room Air 12/30/24 00:15 85 Laboratory Results [facility] 12/30/24 08:18 Sodium 131 L Potassium 5.0 Chloride 95 L Carbon Dioxide 21 BUN 67 H Creatinine 4.69 H* D Glucose 150 H Calcium 8.8
--- NOTE | 2024-12-30 15:37 | Nephrology Progress Note ---
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 relation to cefazolin though had it w/o issue Apr 2024 here and 10/2023 and keflex 12/2022 at [facility] [place] -continue supportive care >>staring spell reported today >> ? another eval for seizure as she had in March -have asked pharmacy to read more on cefazolin >> concern that large dose for renal failure may have lowered seizure threshold > primary service aware and will evaluate; surgery aware; pharmacy aware and will annotate >> she could have in future but would want to avoid high dose Admission and Anticipated Discharge Date Admission Date: December 28, 2024 Subjective Patient is seen and examined at bedside Sititng out Comfortably in chair ,in room air. Review of Systems 2 Review of Systems: All systems reviewed & are unremarkable except as noted in HPI & below Physical Exam 2 Physical Exam: Head: normocephalic, Atraumatic Eyes: normal inspection, EOMI Neck: supple, Trachea midline Respiratory/Chest: Normal breath sounds, CTA, No accessory muscle use,+ right- sided dialysis catheter Cardiovascular: S1, S2, No murmur Abdomen/GI:Soft, Non tender, Bowel sounds present Extremities/Musculoskeletal:normal inspection, trace pedal edema Neurologic/Psych:AAOX3, grossly no focal neurological deficits Skin: normal color, warm Results & Data Vital Signs (Past 12 Hours) Vital Signs Temp Pulse Pulse Resp BP Pulse Ox O2 Del Method 12/30/24 15:20 36.7 C 70 18 128/65 98 Room Air 12/30/24 14:25 74 12/30/24 11:25 36.6 C 67 18 123/76 98 Room Air 12/30/24 08:00 72 12/30/24 07:33 36.4 C L 70 16 113/62 97 Room Air 12/30/24 07:09 77 16 95 Room Air Laboratory Results 12/29/24 07:10 12/30/24 08:18
--- NOTE | 2024-12-31 07:42 | History & Physical Bridge Note ---
Date of Service December 31, 2024 History & Physical Bridge Note Patient for exchange of her permcath today. I have discussed the risks options and benefits of the procedure with the patient. The patient understands the risks options and benefits and agrees to the procedure. I have examined the patient, reviewed the History & Physical and in the interval since the performance of the History & Physical I have noted the following changes of clinical significance: no changes noted
[2024-12-31] MEDS: MIDAZOLAM HCL 1 MG/ML 2ML VIAL ONE (08:20)
[2024-12-31] MEDS: HEPARIN SOD (PORCINE) 5,000 UNITS/ML VIAL ONE (08:24)
[2024-12-31] MEDS: LIDOCAINE 1% LOCAL 20 ML VIAL ONE (08:24)
--- NOTE | 2024-12-31 08:25 | Pre Anesthesia Assessment ---
Date of Service December 31, 2024 Pre Sedation Assessment Vital Signs Temp Pulse Pulse Resp BP Pulse Ox O2 Del Method 12/31/24 08:20 65 16 146/89 H 100 Oxymask 12/31/24 08:15 66 16 174/71 H 98 Room Air 12/31/24 08:00 71 16 166/73 H 98 Room Air 12/31/24 07:05 36.4 C L 65 15 165/76 H 97 Room Air 12/31/24 04:00 36.3 C L 65 18 120/71 98 Room Air 12/30/24 23:07 36.4 C L 76 19 155/78 H 97 Room Air 12/30/24 22:00 71 12/30/24 19:11 36.7 C 74 19 155/70 H 97 Room Air 12/30/24 15:20 36.7 C 70 18 128/65 98 Room Air 12/30/24 14:25 74 12/30/24 11:25 36.6 C 67 18 123/76 98 Room Air O2 Flow Rate 12/31/24 08:20 4 12/31/24 08:15 12/31/24 08:00 12/31/24 07:05 12/31/24 04:00 12/30/24 23:07 12/30/24 22:00 12/30/24 19:11 12/30/24 15:20 12/30/24 14:25 12/30/24 11:25 Cardiovascular RRR, no murmur, no edema Respiratory normal respiratory effort, lungs clear to auscultation Pre-Sedation Airway Assessment Smoking Status: Never smoker Hx Sleep Apnea: Yes Short, Thick Neck: No Thyromental Distance: > or= 3.5 Finger Breadths Oral Cavity: + Dentures Mallampati Class: II ASA: ASA3 NPO Status Date of Last Intake of Fluids: 12/30/24 Time of Last Intake of Fluids: 21:00 Date of Last Intake of Solid Food: 12/30/24 Time of Last Intake of Solid Foods: 18:00 Procedure Planning Contraindications for Sedation: none Current Medications Reviewed: Yes Notes The planned sedation has been discussed with the patient. Informed Consent was obtained. I have identified the patient, determined the appropriateness of sedation and have assessed the patient immediately prior to the procedure. All medicine(s) and interventions are by my order.
--- NOTE | 2024-12-31 08:30 | Post Anesthesia Assessment ---
Date of Service December 31, 2024 Post Sedation Assessment Vital Signs Temp Pulse Pulse Resp BP Pulse Ox O2 Del Method 12/31/24 08:25 63 16 145/82 H 100 Oxymask 12/31/24 08:20 65 16 146/89 H 100 Oxymask 12/31/24 08:15 66 16 174/71 H 98 Room Air 12/31/24 08:00 71 16 166/73 H 98 Room Air 12/31/24 07:05 36.4 C L 65 15 165/76 H 97 Room Air 12/31/24 04:00 36.3 C L 65 18 120/71 98 Room Air 12/30/24 23:07 36.4 C L 76 19 155/78 H 97 Room Air 12/30/24 22:00 71 12/30/24 19:11 36.7 C 74 19 155/70 H 97 Room Air 12/30/24 15:20 36.7 C 70 18 128/65 98 Room Air 12/30/24 14:25 74 12/30/24 11:25 36.6 C 67 18 123/76 98 Room Air O2 Flow Rate 12/31/24 08:25 4 12/31/24 08:20 4 12/31/24 08:15 12/31/24 08:00 12/31/24 07:05 12/31/24 04:00 12/30/24 23:07 12/30/24 22:00 12/30/24 19:11 12/30/24 15:20 12/30/24 14:25 12/30/24 11:25 Recovery Score Activity: Moves 4 extremities Respiration: Deep Breath/Cough Circulation: +/-20% PreAnes Value Consciousness: Fully Awake Oxygen Saturation: > 92% On Room Air Post Anesthesia Score: 10 Discharge Sedation Level of Care: Fast Track Phase II Post Sedation Plan On clinical assessment, the patient appears to have tolerated the sedation without complications. Patient is recovering as anticipated. Patient will continue to be monitored by nursing and may be discharged when sedation discharge criteria are met per below protocol. Upon Completions of procedure up to 15 minutes continue every 5 minute vital signs and the P.A.R. score; then discharge to a Phase I or Fast Track to Phase II per the following guidelines: * Discharge Patient to appropriate Phase II area if PAR is 8 or greater or return to pre- procedure baseline. The post - procedure orders will be as directed. * If PAR score is less than 8 or not return to pre-procedure baseline then patient will follow Phase I monitoring till PAR is reached for Phase II. The Phase I may be done in procedure room or may call to secure a Phase I area. * If naloxone or flumazenil are used for reversal, hold in Phase I for continued monitoring from when last reversal dose was given for a minimum of 60 minutes or longer pending the nurse and/or physician discretion of patient condition before discharge to Phase II. Please call the Sedation Physician to re-evaluate and complete post-note for discharge to Phase II area. Do NOT discharge from procedure sedation or Phase 1 until post- sedation evaluation note is complete by procedure /sedation MD Sedation Discharge Instructions to be given to the patient at discharge to home.
[2024-12-31] MEDS ORDERED: SODIUM CHLORIDE 0.9% 1,000 ML IV PRN (08:34)
--- NOTE | 2024-12-31 08:36 | Operative Report ---
Post Operative Report Pre & Post Diagnosis Operation Date: 12/31/24 09:50 Pre-Op Diagnosis: Malfunctioning Perm Cath Post-Op Diagnosis: Malfunctioning Perm Cath I identified the patient and participated in the time-out.: Yes Procedure Operation Date: 12/31/24 09:50 Actual Procedures p Perm Catheter Exchange,Fluoroscopy for Positioning,Moderate Sedation [id number](Right) - Ulices Luu MD Surgeon Ulices Luu MD Filter Tank Operator none Estimated Blood Loss 5 Findings Consistent with Post-Op Diagnosis Specimens none Anesthesia Type RN Sedation Complications none Disposition Accompanied Patient To Recovery: No Disposition: Recovery Room Indications Patient with poor flows through her permcath. Exchange was recommended. I have discussed the risks options and benefits of the procedure with the patient. The patient understands the risks options and benefits and agrees to the procedure. Description of Procedure Patient was takent to the angio suite and placed in the supine position. The right side of the neck, catheter and chest wall were prepped and draped in a sterile manner. The patient was identified and a timeout performed. Local anesthesia was then administered to the appropriate areas. A guidewire was then passed centrally under fluoroscopic imaging through the old permcath. The old permcath was removed after freeing up the dacron cuff of the permcath . A new 19 cm permcath was inserted without difficulty. The catheter was sutured in placed. Both ports aspirated and flushed easily and were then packed with heparin. A sterile dressing was applied to the catheter. The patient left the operation room in satisfactory condition and tolerated the procedure well. All needle and sponge counts were correct at the end of the procedure. I attest to the content of the Intraoperative Record and any orders documented therein. Any exceptions are noted below.
[2024-12-31 08:39] VITALS: RESP 18
[2024-12-31 09:31] VITALS: O2SAT 98
[2024-12-31 09:53] LABS: Hematocrit (blood only) 29.3 % (37.0-47.0); Hemoglobin 9.4 g/dl (12.0-16.0); Mean Corpuscular Hemoglobin 32.5 pg (25.0-34.0); Mean Corpuscular Volume 101.4 fL (80.0-100.0); Platelet Count 230 K/uL (130-400); RDW Standard Deviation 50.4 fL (36.4-46.3); Red Blood Count 2.89 M/uL (4.20-5.40); White Blood Count 9.51 K/ul (4.8-10.8)
[2024-12-31] MEDS: IRON SUCROSE 100 MG in SYRINGE 0 ML IV ONE (11:10)
[2024-12-31] MEDS: EPOETIN ALFA 20,000 UNITS/ML VIAL IV ONE (11:10)
--- NOTE | 2024-12-31 11:32 | Hospitalist Progress Note ---
Date of Service December 31, 2024 Assessment & Plan (1) Pneumonitis: (2) Acute hypoxic respiratory failure: (3) ESRD on hemodialysis: Plan Acute respiratory failure with hypoxia Likely aspiration pneumonitis --CTA:No pulmonary embolism. Mild pneumonitis.Otherwise as described. --Biofire: Negative -- Blood cultures negative --Normal procalcitonin --Nasal MRSA negative Continue IV Zosyn >> plan to transition to Augmentin on discharge to complete the course Aspiration precautions Continue dietary restrictions per speech therapy Hypoxia resolved Likely to discharge home today after dialysis Suspected adverse reaction to Ancef Patient had similar episode on prior admission: EEG showed mild intermittent background slowing suggestive of mild nonspecific encephalopathy Will avoid cephalosporins Monitor for any seizure activity Resolved AV fistula malfunction--POA ESRD --S/P permanent catheter exchange by Dr. Arroyo on 12/31/24 Monitor volume status Nephrology following Appreciate nephrology, vascular surgery help Avoid nephrotoxic agents as able Dialysis as per nephrology Mild troponin elevation likely demand ischemia in setting of hypoxia, end-stage renal disease Echo showed no wall motion abnormality Monitor Diabetes mellitus type 2 with peripheral angiopathy Presented with significant hyperglycemia due to missing insulin dose for procedure Last HbA1c 7 Continue insulin per protocol Appreciate glycemic pharmacist help Monitor blood glucose levels Rheumatoid arthritis Continue chronic prednisone On Enbrel prior to admission TRISHA Continue CPAP at bedtime DVT prophylaxis Heparin SQ CODE STATUS Full code Disposition Home with home health Admission and Anticipated Discharge Date Admission Date: December 28, 2024 Subjective Patient is seen and examined at bedside Patient had permanent catheter exchanged this morning Offers no new complaint Eager to get discharged home after dialysis today Saturating well on room air Denies any chest pain, nausea, vomiting, abdominal pain, dizziness Review of Systems Review of Systems: All systems reviewed & are unremarkable except as noted in Subjective Physical Exam Physical Exam: Physical Exam: Vitals signs as noted above General Appearance: Overweight, no apparent distress Head: normocephalic, Atraumatic Eyes: normal inspection, EOMI Neck: supple, Trachea midline Respiratory/Chest: Normal breath sounds, CTA, No accessory muscle use,+ right- sided dialysis catheter Cardiovascular: S1, S2, No murmur Abdomen/GI:Soft, Non tender, Bowel sounds present Extremities/Musculoskeletal:normal inspection, trace pedal edema Neurologic/Psych:AAOX3, grossly no focal neurological deficits Skin: normal color, warm Results & Data Results & Data Vital Signs (Past 12 Hours) Vital Signs Temp Pulse Pulse Pulse Resp BP BP 12/31/24 11:15 64 129/67 12/31/24 11:00 62 120/65 12/31/24 10:45 71 130/62 12/31/24 10:30 67 141/70 H 12/31/24 10:22 64 143/74 H 12/31/24 10:15 36.5 C 72 12/31/24 08:59 36.6 C 69 18 157/64 H 12/31/24 08:38 36.3 C L 70 18 148/70 H 12/31/24 08:29 63 16 145/82 H 12/31/24 08:25 63 16 145/82 H 12/31/24 08:20 65 16 146/89 H 12/31/24 08:15 66 16 174/71 H 12/31/24 08:00 71 16 166/73 H 12/31/24 07:05 36.4 C L 65 15 165/76 H 12/31/24 07:00 61 12/31/24 04:00 36.3 C L 65 18 120/71 Pulse Ox O2 Del Method O2 Flow Rate 12/31/24 11:15 12/31/24 11:00 12/31/24 10:45 12/31/24 10:30 12/31/24 10:22 12/31/24 10:15 12/31/24 08:59 98 Room Air 12/31/24 08:38 99 Room Air 12/31/24 08:29 100 Oxymask 4 12/31/24 08:25 100 Oxymask 4 12/31/24 08:20 100 Oxymask 4 12/31/24 08:15 98 Room Air 12/31/24 08:00 98 Room Air 12/31/24 07:05 97 Room Air 12/31/24 07:00 12/31/24 04:00 98 Room Air Laboratory Results Short CBC 12/31/24 Range/Units 09:44 WBC 9.51 (4.8-10.8) K/ul Hgb 9.4 L (12.0-16.0) g/dl Hct 29.3 L (37.0-47.0) % Plt Count 230 (130-400) K/uL
[2024-12-31 12:14] LABS: Anion Gap 13.0 (3-11); Blood Urea Nitrogen 74.0 mg/dl (6-23); Calcium 8.8 mg/dl (8.6-10.3); Carbon Dioxide 22.0 mmol/L (21-32); Chloride 100.0 mmol/L (98-107); Creatinine Clr Calc Pharmacy 9.0 ml/min; Glucose 114.0 mg/dl (70-99(Fasting)); Magnesium 1.9 mg/dl (1.7-2.4); Potassium 4.3 mmol/L (3.5-5.1); Sodium 135.0 mmol/L (136-145)
--- NOTE | 2024-12-31 14:29 | Dialysis Progress Note ---
Date of Service December 31, 2024 Assessment & Plan (1) ESRD on hemodialysis: Plan: last HD was 12/26 >> hd today longer for 4 hrs and more agressive UF > aiming for about 3L w/ UFR <10 no indication for urgent HD today > lytes OK, not overloaded on exam no acidemia; mild hyponatremia -tolerating HD today 12/31 after permcath exchange -next HD on 01/02 as OP or if needed IP (2) Dialysis AV fistula malfunction: Plan: s/p TDC exchange 12/31 if cxs negative for f/u w/ Dr Luu later this month to get plan re L arm (3) Leukocytosis: Plan: -at 48+ hrs w/ neg cultures -no infection source identified (4) Acute hypoxic respiratory failure: Plan: cause unclear; OP wellness manager noted similar episode in Mar 2024; ? relation to cefazolin though had it w/o issue Apr 2024 here and 10/2023 and keflex 12/2022 at [facility] [place] -continue supportive care >>staring spell reported day of admission >> ? another eval for seizure as she had in March >> concern that large cefazolin dose even adjusted for renal failure may have lowered seizure threshold > reviewed w/ surgery, pharmacy, primary service last week>> she could have in future but would want to avoid high dose Admission and Anticipated Discharge Date Admission Date: December 28, 2024 Subjective got TDC replaced this am; some very mild sob w/ lying flat but tolerating; no edema, no new/uncontrolled pain some soreness at TDC exit site; sees Dr Luu about AVF plan late this elizabeth (?01/10) w/ u/s; gabriela Review of Systems 2 Review of Systems: All systems reviewed & are unremarkable except as noted in Subjective Physical Exam 2 Constitutional: well developed (sitting on side of bed on 2L NC) and well nourished; no acute distress Eyes: EOM intact bilaterally ENMT: Mouth: + muffled voice (hoarse as at baseline) and + dry oral mucous membranes Respiratory: + cough (occasional thick cough (chronic /stable)) A uscultation: + diminished lung sounds Cardiovascular: RRR, no murmur, no edema Gastrointestinal (Abdomen): Inspection/Auscultation: normal bowel sounds P ercussion/Palpation: abdomen soft; abdomen nontender Musculoskeletal: Extremities: strength 5/5 throughout Skin: no rashes, warm and dry Results & Data Vital Signs (Past 12 Hours) Vital Signs Temp Pulse Pulse Pulse Resp BP BP 12/31/24 14:00 65 121/61 12/31/24 13:30 65 122/81 12/31/24 13:00 64 123/64 12/31/24 12:30 62 101/56 L 12/31/24 12:00 65 129/66 12/31/24 11:30 61 114/59 L 12/31/24 11:15 64 129/67 12/31/24 11:00 62 120/65 12/31/24 10:45 71 130/62 12/31/24 10:30 67 141/70 H 12/31/24 10:22 64 143/74 H 12/31/24 10:15 36.5 C 72 12/31/24 08:59 36.6 C 69 18 157/64 H 12/31/24 08:38 36.3 C L 70 18 148/70 H 12/31/24 08:29 63 16 145/82 H 12/31/24 08:25 63 16 145/82 H 12/31/24 08:20 65 16 146/89 H 12/31/24 08:15 66 16 174/71 H 12/31/24 08:00 71 16 166/73 H 12/31/24 07:05 36.4 C L 65 15 165/76 H 12/31/24 07:00 61 12/31/24 04:00 36.3 C L 65 18 120/71 Pulse Ox O2 Del Method O2 Flow Rate 12/31/24 14:00 12/31/24 13:30 12/31/24 13:00 12/31/24 12:30 12/31/24 12:00 12/31/24 11:30 12/31/24 11:15 12/31/24 11:00 12/31/24 10:45 12/31/24 10:30 12/31/24 10:22 12/31/24 10:15 12/31/24 08:59 98 Room Air 12/31/24 08:38 99 Room Air 12/31/24 08:29 100 Oxymask 4 12/31/24 08:25 100 Oxymask 4 12/31/24 08:20 100 Oxymask 4 12/31/24 08:15 98 Room Air 12/31/24 08:00 98 Room Air 12/31/24 07:05 97 Room Air 12/31/24 07:00 12/31/24 04:00 98 Room Air Laboratory Results 12/31/24 09:44 12/31/24 11:23
--- NOTE | 2024-12-31 14:36 | Discharge Summary ---
Date of Service December 31, 2024 Admission HPI Per Admitting Provider Patient is a 69-year-old female with PMH significant for DM type II with diabetic peripheral angiopathy, HLD, TRISHA on CPAP, allergic rhinitis, HTN, ESRD on HD M/W/F, primary osteoarthritis of both knees, age-related osteoporosis and rheumatoid arthritis on chronic prednisone therapy whom our service was called to admit from the PACU due to acute respiratory failure with hypoxia and chest pain. [facility] this [facility] for PermCath exchange with Dr. Luu. Patient developed acute SOB and centralized chest pain when moving to the OR table for the procedure. Patient became acutely hypoxic down to 75% SpO2 on room air, tachycardic with HR in the 140s and hypotensive with SBP in the 90s. Was placed on 10L OxyMask with improvement of O2 saturation to 90%. Was administered 5mg IV Lopressor and 100mcg IV phenylephrine by anesthesia which improved her HR to the 80s and BP into the 110s/60s, respectively. Stat EKG with sinus tachycardia, no evidence of acute ST changes. Troponin ordered. Stat CXR with no evidence of consolidation, pleural effusion or pneumothorax. Stat chest CTA without evidence of PE but did reveal findings consistent with bronchitis, mild pneumonitis and possible esophagitis. No witnessed olco aspiration per nursing at bedside. PermCath exchange not performed. Patient seen and examined at bedside in the PACU with Dr. Rebloledo shortly after 09:00. Remained on 10L OxyMask, saturating around 92% SpO2. BP 117/58, HR 81 and RR 16. Patient alert and oriented x 3. Describes sensation of centralized chest pain and acute SOB when being moved over to the OR table. SOB improving with supplemental O2 support, patient more comfortable. Still with some centralized chest pain but intensity has greatly improved from prior. Has a chronic cough which feels unchanged from baseline, patient attributes this to her allergic rhinitis and chronic postnasal drip. Had HD session yesterday. Still makes urine. Had a bout of vomiting Tuesday but this has resolved, patient attributes this to something she ate. Nursing staff at bedside mentioned the patient was "staring off" for a few seconds when the above events occurred. Patient denies any prior seizure activity. When questioned regarding this "staring off" episode, patient admits it was difficult for her to communicate to nursing staff at that time due to the intensity of her chest pain and SOB. At no point did the patient lose consciousness. Admission Exam Per Admitting Provider Physical Exam: Vitals signs as noted above General Appearance: Overweight, no apparent distress Head: normocephalic, Atraumatic Eyes: normal inspection, EOMI Neck: supple, Trachea midline Respiratory/Chest: Normal breath sounds, CTA, No accessory muscle use,+ right- sided dialysis catheter Cardiovascular: S1, S2, No murmur Abdomen/GI:Soft, Non tender, Bowel sounds present Extremities/Musculoskeletal:normal inspection, trace pedal edema Neurologic/Psych:AAOX3, grossly no focal neurological deficits Skin: normal color, warm Principal Diagnosis Acute respiratory failure with hypoxia Aspiration pneumonitis AV fistula malfunction Drug adverse reaction Discharge Data Allergies Allergy/AdvReac Type Severity Reaction Status Date / Time ranitidine Allergy Intermediate Rash Verified 12/31/24 07:09 lisinopril AdvReac Intermediate Cough Verified 12/31/24 07:09 cefazolin AdvReac Verified 12/31/24 07:09 Consultations 12/28/24 09:07 Consult Hospitalist Routine 12/28/24 11:02 Consult Nephrology Routine 12/28/24 12:09 Consult Vascular Surgery Routine Procedures Performed Operation Date: 12/31/24 09:50 Actual Procedures p Perm Catheter Exchange,Fluoroscopy for Positioning,Moderate Sedation 0815- 0828(Right) - Ulices Luu MD Ordered Studies Laboratory Results WBC 9.51 K/ul (4.8-10.8) 12/31/24 09:44 RBC 2.89 M/uL (4.20-5.40) L 12/31/24 09:44 Hgb 9.4 g/dl (12.0-16.0) L 12/31/24 09:44 POC Hgb 11.2 g/dl (12.0-16.0) L 12/28/24 10:42 Hct 29.3 % (37.0-47.0) L 12/31/24 09:44 POC Hct 33 % (37-47) L 12/28/24 10:42 MCV 101.4 fL (80.0-100.0) H 12/31/24 09:44 MCH 32.5 pg (25.0-34.0) 12/31/24 09:44 MCHC 32.1 g/dL (32.0-36.0) 12/31/24 09:44 RDW Std Deviation 50.4 fL (36.4-46.3) H 12/31/24 09:44 RDW Coeff of Jax 13.4 % (11.5-14.5) 12/31/24 09:44 Plt Count 230 K/uL (130-400) 12/31/24 09:44 MPV 9.8 fL (9.4-12.4) 12/31/24 09:44 Immature Gran % (Auto) 1.8 % 12/29/24 07:10 Neut % (Auto) 74.7 % 12/29/24 07:10 Lymph % (Auto) 11.4 % 12/29/24 07:10 [place] % (Auto) 6.5 % 12/29/24 07:10 Eos % (Auto) 5.3 % 12/29/24 07:10 Baso % (Auto) 0.3 % 12/29/24 07:10 Neut # (Auto) 7.55 K/uL (1.40-6.50) H 12/29/24 07:10 Lymph # (Auto) 1.15 K/uL (1.20-3.40) L 12/29/24 07:10 [place] # (Auto) 0.66 K/uL (0.11-0.59) H 12/29/24 07:10 Eos # (Auto) 0.54 K/uL (0.00-0.50) H 12/29/24 07:10 Baso # (Auto) 0.03 K/uL (0.00-0.20) 12/29/24 07:10 Immature Gran # (Auto) 0.18 K/uL (0.01-0.20) 12/29/24 07:10 Specimen Type Arterial 12/28/24 10:42 Sample Site R Radial 12/28/24 10:42 POC pH 7.34 (7.35-7.45) L 12/28/24 10:42 POC pCO2 37 mmHg (35-46) 12/28/24 10:42 POC pO2 113 mmHg (80-95) H 12/28/24 10:42 POC HCO3 20 mmol/L (19-24) 12/28/24 10:42 POC Total CO2 21 mmol/L (24-31) L 12/28/24 10:42 POC Base Excess -6.0 mmol/L (-9-1.8) 12/28/24 10:42 O2 Sat Pulse Oximetry 97 12/28/24 10:42 ABG pH (Temp Correct) 7.336 (7.35-7.45) L 12/28/24 10:42 ABG pCO2 (Temp Corrct 37 mmHg (35-46) 12/28/24 10:42 POC ABG pO2 at Pt Temp 113 12/28/24 10:42 POC ABG O2 Sat 98.0 % (90-95) H 12/28/24 10:42 Marko Test Pass 12/28/24 10:42 O2 Delivery Device Cannula 12/28/24 10:42 POC Sodium 126 mmol/L (135-144) L 12/28/24 10:42 Sodium 135 mmol/L (136-145) L 12/31/24 11:23 POC Potassium 3.3 mmol/L (3.3-5.0) 12/28/24 10:42 Potassium 4.3 mmol/L (3.5-5.1) 12/31/24 11:23 Chloride 100 mmol/L (98-107) 12/31/24 11:23 Carbon Dioxide 22 mmol/L (21-32) 12/31/24 11:23 Anion Gap 13 (3-11) H 12/31/24 11:23 BUN 74 mg/dl (6-23) H 12/31/24 11:23 Creatinine 4.45 mg/dl (0.6-1.2) H 12/31/24 11:23 Est Cr Clr Drug Dosing 9.0 ml/min 12/31/24 11:23 eGFR 10.04 12/31/24 11:23 BUN/Creatinine Ratio 16.6 (10-20) 12/31/24 11:23 Glucose 114 mg/dl (70-99(Fasting)) H 12/31/24 11:23 POC Glucose 113 mg/dl (70-99) H 12/31/24 06:49 Calcium 8.8 mg/dl (8.6-10.3) 12/31/24 11:23 Phosphorus 5.0 mg/dl (2.5-4.9) H 12/29/24 07:10 Magnesium 1.9 mg/dl (1.7-2.4) 12/31/24 11:23 Total Bilirubin 0.2 mg/dl (0.2-1.0) 12/29/24 07:10 AST 12 U/L (13-39) L 12/29/24 07:10 ALT 3 U/L (7-52) L 12/29/24 07:10 Alkaline Phosphatase 58 U/L (34-104) 12/29/24 07:10 Total Creatine Kinase 49 U/L (26-192) 12/28/24 09:03 Troponin I High Sens 113.3 pg/ml (0-14) H* 12/29/24 07:10 Total Protein 6.2 gm/dl (6.0-8.3) 12/29/24 07:10 Albumin 3.1 gm/dl (3.4-5.0) L 12/29/24 07:10 Globulin 3.1 gm/dl (2.5-4.0) 12/29/24 07:10 Albumin/Globulin Ratio 1.0 (0.9-2) 12/29/24 07:10 Procalcitonin 0.13 ng/ml (0-0.5) 12/28/24 09:54 TSH 0.362 uIu/ml (0.300-4.500) 12/30/24 08:18 Urine Color Yellow 12/28/24 23:32 Urine Appearance Cloudy (Clear) A 12/28/24 23:32 Urine pH 5.0 (4.5-7.5) 12/28/24 23:32 Ur Specific [place] <= 1.005 (1.000-1.030) 12/28/24 23:32 Urine Protein 2+ (Negative) H 12/28/24 23:32 Urine Glucose (UA) Negative (Negative) 12/28/24 23:32 Urine Ketones Trace (Negative) H 12/28/24 23:32 Urine Blood Trace-intact (Negative) H 12/28/24 23:32 Urine Nitrite Negative (Negative) 12/28/24 23:32 Urine Bilirubin Negative (Negative) 12/28/24 23:32 Urine Urobilinogen Negative (Negative) 12/28/24 23:32 Ur Leukocyte Esterase 2+ (Negative) H 12/28/24 23:32 Urine RBC 3-5 /hpf (0-2) H 12/28/24 23:32 Urine WBC >50 /hpf (0-5) H 12/28/24 23:32 Ur Epithelial Cells >20 /hpf (0-2) H 12/28/24 23:32 Urine Bacteria None Seen (None Seen) 12/28/24 23:32 Urine Comment 12/28/24 23:32 Nasal Screen MRSA (PCR) Negative (Negative) 12/28/24 Unknown Adenovirus (PCR) Not Detected (NotDetected) 12/28/24 Unknown B. pertussis DNA (PCR) Not Detected (NotDetected) 12/28/24 Unknown B.parapertussis DNA PCR Not Detected (NotDetected) 12/28/24 Unknown C. pneumoniae DNA (PCR) Not Detected (NotDetected) 12/28/24 Unknown Coronavirus OC43 (PCR) Not Detected (NotDetected) 12/28/24 Unknown Coronavirus HKU1 (PCR) Not Detected (NotDetected) 12/28/24 Unknown Coronavirus 229E (PCR) Not Detected (NotDetected) 12/28/24 Unknown SARS-CoV-2 (PCR) Not Detected (NotDetected) 12/28/24 Unknown Coronavirus NL63 (PCR) Not Detected (NotDetected) 12/28/24 Unknown Human Metapneumovir PCR Not Detected (NotDetected) 12/28/24 Unknown Influenza Type A (PCR) Not Detected (NotDetected) 12/28/24 Unknown Influenza Type B (PCR) Not Detected (NotDetected) 12/28/24 Unknown M. pneumoniae (PCR) Not Detected (NotDetected) 12/28/24 Unknown Parainfluenza 1 (PCR) Not Detected (NotDetected) 12/28/24 Unknown Parainfluenza 2 (PCR) Not Detected (NotDetected) 12/28/24 Unknown Parainfluenza 3 (PCR) Not Detected (NotDetected) 12/28/24 Unknown Parainfluenza 4 (PCR) Not Detected (NotDetected) 12/28/24 Unknown RSV (PCR) Not Detected (NotDetected) 12/28/24 Unknown Entero/Rhino (PCR) Not Detected (NotDetected) 12/28/24 Unknown SARS-CoV-2, RNA, NAAT NEGATIVE (NEGATIVE) 12/28/24 Unknown Impressions Chest X-Ray 12/28/24 08:51 XR chest 1V portable CLINICAL HISTORY: sob,chest pain COMPARISON STUDY: 03/20/2024 FINDINGS: Right dialysis catheter tip is in the SVC. Heart size and pulmonary vasculature are normal. No consolidation or pleural effusion seen. No pneumothorax. IMPRESSION: No acute findings. ACT 112: Negative or not required by law. Electronically signed by: Wilmer Lawrence M.D. 12/28/2024 9:30 AM Chest CTA 12/28/24 08:52 CT angio chest w con CLINICAL HISTORY: sob, chest pain, poss pe COMPARISON STUDY: None FINDINGS: There is motion artifact due to breathing. There are trace airway secretions. There is mild bronchial wall thickening consistent with bronchitis. There are a few scattered small patchy groundglass opacities consistent with mild pneumonitis. No lobar consolidation or pleural effusion. No pneumothorax. There are retained esophageal contents, reduced esophageal motility versus gastroesophageal reflux. There is mild wall thickening at the mid to distal esophagus suggesting esophagitis. No enlarged adenopathy. There are a few small bilateral subcentimeter thyroid nodules. No pericardial effusion. No thoracic aortic dissection or aneurysm. No pulmonary embolism. There are diffuse thoracic spine degenerative changes. Right dialysis catheter tip is just above the cavoatrial junction. IMPRESSION: 1. No pulmonary embolism. 2. Mild pneumonitis. 3. Otherwise as described. ACT 112: Negative or not required by law. Electronically signed by: Wilmer Lawrence M.D. 12/28/2024 9:29 AM Hospital Course (1) Pneumonitis: (2) Acute hypoxic respiratory failure: (3) ESRD on hemodialysis: Plan Acute respiratory failure with hypoxia Likely aspiration pneumonitis --CTA:No pulmonary embolism. Mild pneumonitis.Otherwise as described. --Biofire: Negative -- Blood cultures negative --Normal procalcitonin --Nasal MRSA negative Continue IV Zosyn >> plan to transition to Augmentin on discharge to complete the course Aspiration precautions Continue dietary restrictions per speech therapy Hypoxia resolved Likely to discharge home today after dialysis Suspected adverse reaction to Ancef Patient had similar episode on prior admission: EEG showed mild intermittent background slowing suggestive of mild nonspecific encephalopathy Will avoid cephalosporins Monitor for any seizure activity Resolved AV fistula malfunction--POA ESRD --S/P permanent catheter exchange by Dr. Arroyo on 12/31/24 Monitor volume status Nephrology following Appreciate nephrology, vascular surgery help Avoid nephrotoxic agents as able Dialysis as per nephrology Mild troponin elevation likely demand ischemia in setting of hypoxia, end-stage renal disease Echo showed no wall motion abnormality Monitor Diabetes mellitus type 2 with peripheral angiopathy Presented with significant hyperglycemia due to missing insulin dose for procedure Last HbA1c 7 Continue insulin per protocol Appreciate glycemic pharmacist help Monitor blood glucose levels Rheumatoid arthritis Continue chronic prednisone On Enbrel prior to admission TRISHA Continue CPAP at bedtime DVT prophylaxis Heparin SQ CODE STATUS Full code Disposition Home with home health Total Time Total Time Spent Total Time Spent (In Minutes): 52 minutes Discharge Plan Discharge Items Patient Disposition: Home - Self-Care Reason For Visit: ESRD on Hemodialysis Discharge Diagnosis: Acute respiratory failure with hypoxia Aspiration pneumonitis AV fistula malfunction Drug adverse reaction Activity: Per Instructions section Exercise/Sports: Gradually increase as tolerated Non-emergency contact: Primary Care Provider and F[employer]bler Call non-emergency contact if: you have any medication questions, your symptoms worsen, your pain is concerning for you and you have a fever Follow-up/Referrals: Shayla Milan MD [Primary Care Provider] - (Date & Time 01/07/2025 11:40 AM Provider: Shayla Milan MD [facility], [facility] ) Diet: Carb Consistent or DM2 and Dialysis Renal Diet Texture: Easy to Chew Addtl Attending Provider Instructions: -- Follow-up with your primary care physician Dr. Milan on 01/07/2025 11:40 AM -- Follow-up with shirring tender for dialysis as recommended -- Complete the antibiotic course Augmentin as prescribed --Your final blood cultures are pending at the time of discharge. Follow-up with the physician for results. Seek immediate medical attention if your symptoms reoccur or worsen Please review medication list provided on discharge for any medication changes as instructed. Please call if you have any questions or problems. You can reach a [facility] hospitalist on duty at [facility] 24 hours a day by calling [phone] Pending Studies at Discharge: Yes Studies:: Blood culture Stand-Alone Forms: My [facility], Smoking Cessation Medications and DC Order Prescriptions: New magnesium chloride [Mag 64] 64 mg Tablet,Delayed Release (Dr/Ec) 64 mg PO BID Qty: 30 0RF amoxicillin-pot clavulanate 250-125 mg tablet 1 tab PO BID Qty: 10 0RF Continued Enbrel 50 mg/mL (1 mL) syringe 50 mg SQ WK Rx Instructions: Tuesday fluticasone propionate [Flonase Allergy Relief] 50 mcg/actuation spray,suspension 2 sprays INTNAS QAM PRN (Reason: Nasal Congestion) prednisone 5 mg tablet 5 mg PO DAILY metoprolol tartrate 25 mg Tablet 25 mg PO BID Qty: 60 0RF acetaminophen [Tylenol] 325 mg Tablet 325 - 975 mg PO Q6H PRN (Reason: Pain) Qty: 60 0RF Rx Instructions: takes pretty regular Trulicity 3 mg/0.5 mL pen injector 3 mg SUBCUT WK Qty: 2 0RF Patient Comments: pt states she normally takes on tuesdays took this tuesday01/25/24 Rx Instructions: Tuesday ondansetron HCl 4 mg Tablet 4 mg PO Q8H PRN (Reason: Nausea) Vicks NyQuil Cough 6.25-15 mg/15 mL Solution 15 ml PO Q4H PRN (Reason: Cough) levocetirizine [Allergy Relief (levocetirizin)] 5 mg tablet 5 mg PO PM gabapentin 100 mg Capsule 100 mg PO TID diphenhydramine HCl [Benadryl Allergy] 25 mg Tablet 25 mg PO HS PRN (Reason: Allergy Symptoms) oxycodone 5 mg Tablet 5 mg PO DAILY PRN (Reason: pain) Qty: 5 0RF cyanocobalamin (vitamin B-12) [Vitamin B-12] 1,000 mcg tablet 1,000 mcg PO QAM cholecalciferol (vitamin D3) [Vitamin D3] 50 mcg (2,000 unit) capsule 50 mcg PO DIRECTED Rx Instructions: Tuesday, Tuesday, Tuesday on dialysis days guaifenesin [Mucinex] 1,200 mg Tablet Extended Release 12hr 1,200 mg PO WK Rx Instructions: Tuesday Discharge Orders: Discharge Order (Routine); Ordered 12/31/24 Ordered By: Benitez Rebolledo Admission Data Admit Date/Time: 12/28/24 09:47 Attending Provider: Benitez Rebolledo Admit Provider: Benitez Rebolledo Primary Care Provider: Shayla Milan Other Providers: Holly Monk; Danika Butts I.; Byron Gonzalez; Wilfrido Voss; Fawn Diallo; Katie Ramos; Yadira Vela; Bradley Gan; Too Alcaraz; Rodolfo Moore; Hua Boothe; Stella Kilgore; Benitez Rebolledo; Eri Banegas; Nay Stroud; Camille Heck; Kat Urena; Alida Carreon I.; Tez Velázquez; Damian Ayala; Halina Ramos; Lázaro Marshall.; Ivan Link; Estevan Blas; Svetlana Roper L; Evelyn Terry; Viral Aguilar; Guru Barros; Shamar Nobles; Tez Maldonado; Elena Mesa; Amish Benavidez; Rita Martínez; Delma Julien; Delma Fischer; Grover Sharma; Deuce Mckeon; Monie Harris; Ulices Luu
[2024-12-31 15:57] VITALS: BP 141/67; TEMP 98.1
[2024-12-31 18:30] VITALS: PULSE 69
== END 2024-12-31 19:09 | disposition home or self-care (01) | DRG 673 ==
LOC: ASU 07:27 → 2S 09:47